=== PATIENT | female | born 1970 | race Caucasian/White ===

== ENCOUNTER 2025-05-22 14:44 | Emergency (ER) | payer OTHER, SELFPAY ==
--- OUTSIDE RECORDS SUMMARY | 2025-04-07 10:15 | XMS_ITS | Encounter Summary ---
Author Organization [facility] Address [address] [place] [address] Care Team Providers Care Power House Engineer Name Role Phone Clay Hoyt MD Primary Care Provider [phone] Xavier Saldivar MD Unavailable Xavier Saldivar MD Unavailable Erica Nieto RD Unavailable [phone] Dariusz Adan MD Unavailable [phone] EloHu ricks MD Unavailable [phone] Comfort Cook PhD Unavailable [phone] Lukas Mosher MD Unavailable [phone] Xavier Marte MD Unavailable [phone] Hu Gasca MD Unavailable [phone] Larry Rosas PhD Unavailable [phone] Krystal Rico [facility] Unavailable [phone] Krystal Rico [facility] Unavailable [phone] Reason for Visit * ReasonCommentsPain Management Encounter Details DateTypeDepartmentCare Team (Latest Contact Info)Lqqnxitsfxu00/11/2025 10:15 AM CSTOffice Visit [facility] [address] [place], [place] [id number] Dariusz Adan MD [id number] [place] [address] [address] [place] [id number] Chronic pain syndrome (Primary Dx); Fibromyalgia; OSWALDO (generalized anxiety disorder); Neuropathic pain; Encounter for long-term (current) use of high-risk medication Social History Tobacco UseTypesPacks/DayYears UsedDateSmoking Tobacco: Every DayCigarettes0.5 48.6Started: 10/26/2006PipeStarted: 3Passive Smoke Exposure: Current Smokeless Tobacco: Never Tobacco Cessation:Ready to Q uit: Not Asked; Counseling Given: Not Answered Alcohol UseStandard Drinks/WeekCommentsNot Currently0 (1 standard drink = 0.6 oz pure alcohol)RARELYPHQ-2AnswerDate RecordedPHQ-2 Zduzi266/11/2025Adolescent EducationAnswerDate RecordedGetting School Help NeededNot on file02/17/2023 CommentsNoSex and Gender InformationValueDate RecordedSex Assigned at ArkooQjshvh11/02/2021 8:35 AM CDTLegal PuqDbfpog88/26/2021 11:46 AM CDTGender WwnjjlvvBmbxba64/02/2021 8:35 AM CDTSexual WpqedboxcomUsgfrxha61/02/2021 8:35 AM CDTdocumented as of this encounter Last Filed Vital Signs Vital SignReadingTime TakenCommentsBlood Eoscosof43/5404/07/2025 10:01 AM COMBINE OPERATOR Oaard062104/07/2025 10:01 AM CSTTemperature--Respiratory Rate--Oxygen Saturation 95%04/07/2025 10:01 AM CSTInhaled Oxygen Concentration--Weight--Height--Body Mass Index--documented in this encounter Patient Instructions * Patient Instructions* Dariusz Adan MD - 04/07/2025 10:15 AM COMBINE OPERATOR You can take your Subutex 2mg all at night vs cutting it in half and taking it twice a day. I did not make other medication changes. Follow up 06/30/2025 @ 1015. If your healthcare changes I can give you 3-6 months worth of subutex until you can find someone through [facility] system to prescribe this for you. Talk to your drier feeder about possible treatment for your menopause symptoms. They may need torefer you to OBGYN or you PCP may be willing to prescribe this as well. Dariusz Adan MD INE OPERATOR documented in this encounter Progress Notes * Dariusz Adan MD - 04/07/2025 10:15 AM CST Images from the original note were not included. [facility] Date of visit: 04/07/2025 Chief complaint: Chief Complaint Patient presents with Pain Management Interval history: Klaudia Hall is a 54 year old female last seen by me for INITIAL CONSULT on 07/27/2021 and for FOLLOW UP on 12/30/2024 IN PERSON. Since her last visit, Klaudia Hall reports: - Doing okay. She is really frustrated and anxious about her medical problems she has had recently. -She continues to use Subutex 2 mg tablets. States she cannot take buprenorphine in the morning because it knocks me out . She wonders if she can take the whole 2 mg tablet at night instead. She was previously using Belbuca 450 mcg films twice a day. She is no longer having any side effects from the buprenorphine other than morning sedation. - She brought in a letter and has Sealed for insurance. She is concerned that therapy will not reach a negotiation with them and she will need to find a new pain provider. - She had a stent placed in her carotid artery 03/18/2025. Routine US showed obstruction 80% on theright and 50% on the left side. - She is 186# currently and used to be 140#. She does not know how she gained this much weight in 4months. - She talked to her drier feeder about her recent weight gain and they increased her thyroid medications, Synthroid. She also has a diagnosis of Hashimotos thyroiditis. - I've been so so tired. I've been really depressed about with weight gain. - She is not sleeping in the bed anymore because she cannot lay in the bed. Her arms get painful and her legs and back get painful its a nightmare. - Her has prostate cancer and is had a resection done 01/19/2025. He has a good prognosis. He has a follow-up this week to get labs done. - Recent diagnosis of gastroparesis with abdominal pain and N/V. EGD was done and they dilated her pyloric sphincter. - She is back on Reglan 10mg at night for her gastroparesis. She had not taken it for about a year prior to restarting it. She is no longer using Zofran because it was contributing to her constipation. - Seeing her neurologist, Dr. Saldivar, on 04/09/2025. She has a referral for left carpal tunnel release placed. She already had the right one done. A Thomas MRI was ordered for her headaches. She continues to have what sound like tension headaches. She was previously on Topamax but that caused brain fog. She did not note any change in headache after discontinuation of this medication in the past. - Referral to [place] urology for urinary retention. My bladder is lazy. She knows how to catheterize herself at home if needed. - She is not taking her flexeril on a daily basis anymore. She is only using it as needed. - She has reduced her trazodone from 300mg to 150mg at night. - Her Gabapentin is still at 300mg BID and at noon PRN - She had a mild heart attack and got a stent. She spent a night in the hospital at [place]. - Sunni Contreras is her psychiatrist ([facility]) and is prescribing her Xanax. She does not think there is any correlation with the benzodiazepine and her memory issues. She continues to take Xanax 4-5 times a day. - She is seeing endocrinology. She was diagnosed with DM I in 1993. She has been on insulin for many years. - The medical cannabis is a lifesaver. She is using the vape and the gummy. She only uses it a little during the day. It helps with relaxation and sleep. It calms her down and helps with her pain. - Switching to flexeril (from robaxin) has been helpful for her pain. - She continues to struggle with motivation for ADLs, grocery shopping, going out for anything. - She was seeing Xavier in pain PT, where she learned some helpful breathing and relaxation exercises. - Her is very supportive of her - She wonders if menopause may be causing some of her symptoms. She is interested in hormone replacement. She saw a news program this morning showing that the initial study showing an increased risk of breast cancer was probably flawed. LEAD BUSINESS ANALYST: Owen Lawson - Diabetes which was diagnosed in 1993. Hashimotos Hypothyroidism PSYCHIATRIST: Sunni [facility] She has been on chronic benzodiazepines since age 23. She takes 4-5mg of xanax daily. NEUROLOGIST: Xavier Saldivar - for peripheral neuropathic pain. SALES ACCOUNT SPECIALIST - Dr. Marina Gasca - moderate persistent asthma CARDIOLOGY: Franchesca Sanchez Patient reported symptoms: Patient Supplied Answers To the Pain Questionnaire 07/16/2022 1:10 PM Pain - Patient Entered Questionnaire/Answers What number best describes your pain right now: 0 = No pain to 10 = Worst pain imaginable 8 How would you describe the pain burning sharp numbness dull, aching throbbing Which of the following worsen your pain lying down standing walking exercise Which of the following improve or reduce your pain sitting medication relaxation What number best describes your average pain for the past week: 0 = No pain to 10 = Worst pain imaginable 8 What number best describes your LOWEST pain in past 24 hours: 0 = No pain to 10 = Worst pain imaginable 6 What number best describes your WORST pain in past 24 hours: 0 = No pain to 10 = Worst pain imaginable 8 When is your pain worst AM Constant What non-medicine treatments have you already had for your pain pain clinic physical therapy spine injections (shots) No images are attached to the encounter. [place] FRONT OFFICE JAVA DEVELOPER REVIEWED TODAY: UDS and CONTRACT DONE on 12/30/2024. MEDICATIONS FOR PAIN: Subutex 2 mg tablets - 1/2 tablet BID (she has been skipping the morning dose because of sedation. Gabapentin 300mg TID PRN Flexeril 5mg BID PRN Trazodone 150mg at night Effexor XR 75mg am and 150mg at night Xanax 1mg QID plus another PRN Previous medication trials: Topamax - severe acid build up and nausea Lyrica - [place] Robaxin - NH anymore - was helpful for awhile INJECTIONS/SURGERY: Right subacromial shoulder injection 07/13/2023 - pain and reduced ROM resolved completely Lumbar L4-5 ILESI 05/13/2021 C7-T1 Cervical TRAN 04/28/2022 S/P RIGHT carpal tunnel release 12/02/[address] Wofle. S/P right cardiac stent placement 03/18/2025 IMAGING: MRI LUMBAR SPINE 06/12/2018 CERVICAL MRI 02/10/2022: FINDINGS: Straightening of the cervical lordosis without subluxation. Normal cervical vertebral body heights. Normal cervical spinal cord. Benign marrow, no edema. C2-C3: Preserved interspace. No herniation. Unremarkable facets. No stenosis. C3-C4: Preserved interspace. No herniation. Unremarkable facets. No stenosis. C4-C5: Preserved interspace. Tiny central protrusion causes minor central canal narrowing. Unremarkable facets. No foraminal narrowing. C5-C6: Preserved interspace. No herniation. Unremarkable facets. No stenosis. C6-C7: Preserved interspace. Tiny central protrusion. Unremarkable facets. No stenosis. C7-T1: Preserved interspace. No herniation. Unremarkable facets. No stenosis. IMPRESSION: 1. Tiny central protrusion at C4-C5 causes minor central canal narrowing. 2. Tiny central herniation at C6-C7 without stenosis. EM05/24/2022 right upper extremity EMG Interpretation: This is an abnormal study, demonstrating electrophysiologic evidence of the followin. Reduced compound muscle action potential amplitudes (CMAPs), of uncertain significance. 2. No increment in CMAPs after contraction. 3. Prolonged median distal motor latency, consistent with the patient's past history of median neuropathy at the wrist. LABS: TSH: 3.78 HgbA1c - 8.0 Medications: Current Outpatient Medications Medication Sig Dispense Refill ALPRAZolam (XANAX) 1 MG tablet Take 1 mg by mouth 5 times daily. Taking 5 times a day aspirin (ASPIRIN ADULT LOW DOSE) 81 MG EC tablet Take 81 mg by mouth daily. buprenorphine (SUBUTEX) 2 MG SUBL sublingual tablet Place 0.5 tablets (1 mg) under the tongue 2 times daily. 30 tablet 2 clopidogrel (PLAVIX) 75 MG tablet Take 75 mg by mouth daily. Continuous Blood Gluc Sensor (optionsXpress G7 SENSOR) MISC cyclobenzaprine (FLEXERIL) 5 MG tablet Take 1 tablet (5 mg) by mouth 2 times daily as needed for muscle spasms. 60 tablet 1 Dgastpptser-Iebmghrkc-Itcconfgft (TRELEGY ELLIPTA) 200-62.5-25 MCG/ACT oral inhaler Inhale 1 puff into the lungs daily. 180 each 3 gabapentin (NEURONTIN) 300 MG capsule Take 1 capsule (300 mg) by mouth 3 times daily as needed for neuropathic pain. 90 capsule 2 insulin aspart (NOVOLOG FLEXPEN) 100 UNIT/ML pen Inject subcutaneously. Inject 1 unit(s) to 5 unit(s) subcutaneously before meals (sliding scale) insulin degludec (TRESIBA) 100 UNIT/ML pen Inject 18-20 Units subcutaneously every morning. levalbuterol (XOPENEX HFA) 45 MCG/ACT inhaler Inhale 2 puffs into the lungs every 6 hours as neededfor shortness of breath or wheezing. 45 g 3 levothyroxine (SYNTHROID/LEVOTHROID) 88 MCG tablet Take 1 tablet by mouth daily. metoprolol succinate ER (TOPROL XL) 25 MG 24 hr tablet Take 12.5 mg by mouth daily. nicotine (NICODERM CQ) 21 MG/24HR 24 hr patch APPLY 1 PATCH ON DRY, CLEAN, HAIRLESS SKIN ONCE DAILY. nitroGLYcerin (NITROSTAT) 0.[address] 1 Tablet (0.4 mg) under the tongue every 5minutes if needed for Chest pain 1st choice (Hold if SBP less than 90 mmHg). Up to 3 tablets in 15 minutes. ondansetron (ZOFRAN) 4 MG tablet Take 4 mg by mouth daily as needed for nausea. pantoprazole (PROTONIX) 40 MG EC tablet Take 40 mg by mouth 2 times daily. rosuvastatin (CRESTOR) 20 MG tablet Take 1 tablet by mouth at bedtime. traZODone (DESYREL) 150 MG tablet Take 150 mg by mouth at bedtime. venlafaxine (EFFEXOR XR) 150 MG 24 hr capsule Take 1 capsule (150 mg) by mouth at bedtime. 30 capsule 2 venlafaxine (EFFEXOR XR) 75 MG 24 hr capsule Take 1 capsule (75 mg) by mouth in the morning Physical Exam: Blood pressure 98/54, pulse 92, SpO2 95%. GENERAL: Healthy, alert and no distress EYES: Eyes grossly normal to inspection. No discharge or erythema, or obvious scleral/conjunctival abnormalities. RESP: No audible wheeze, cough, or visible cyanosis. No visible retractions or increased work of breathing. SKIN: Visible skin clear. No significant rash, abnormal pigmentation or lesions. NEURO: Cranial nerves grossly intact. Mentation and speech appropriate for age. PSYCH: Mentation appears normal, affect normal/bright, judgement and insight intact, normal speech and appearance well-groomed. ASSESSMENT/PLAN: Klaudia Hall is a 54 year old female has a past medical history of recent myocardial infarction and stent placement in the circumflex artery, recent right cardiac stent placement, DMI, GERD, hypothyroidism, biliary dyskinesia, HTN and carpal tunnel syndrome and mental health history significant for severe anxiety treated with daily benzodiazepines and depression and is being seen at the pain clinic for chronic widespread pain. 1. Chronic pain syndrome (Primary) HEADACHES - TENSION AND MIGRAINE - Headaches are stable and did not change in frequency or intensity after discontinuation of topamax. She is following with neurology for these. CHRONIC NECK PAIN - myofascial etiology. Recent Cervical MRI was normal. I do not recommend injections at this time. I did give her some stretching exercises to do at her last follow-up visit. OSTEOARTHRITIS RIGHT SHOULDER - S/P glenohumeral injection (right) which was really helpful. Her shoulder range of motion has improved dramatically and pain is no longer concerning for her at this time. BILATERAL LEG PAIN -likely a combination of peripheral neuropathy pain and fibromyalgia. This is improved with gabapentin which she is taking 300 mg 3 times a day. CHRONIC LOW BACK PAIN - with radiation down her bilateral buttock and posterior thighs. It has beengoing on for a couple months. This is a new acute pain. The patient has a complex medical history. Her pain is widespread and chronic. Her pain has been the same for about 20 years now. She has pain starting in her head and going through her entire body all the way to her feet. Specific pain complaints include chronic neck and arm pain, low back pain, trigger finger pain wrist pain carpal tunnel painmid back pain burning thigh pain radiating leg pain and what sounds like peripheral neuropathy pain in her bilateral feet. She also complains of crippling anxiety, insomnia and fatigue throughout the day. Her symptoms seem to rotate around her body at different times. She continues to search for an all-inclusive diagnosis to explain all of her symptoms. I explained that she has seen many different specialties and many different physicians in the last 20 years and her primary diagnosis is fibromyalgia. Buprenorphine has been very effective in pain management. We recently switched from Belbuca 450 mcgtwice daily to Subutex 2 mg tablet daily. She is taking this as 1mg twice a day. She would like to take the whole 2mg tablet at night and this was discussed. I am fine with her taking it this way. She had Youku and may need to stop seeing me. I reassured her I would supply her with 3-6 months of medication to give her time to find a new doctor within the [facility] system. Recommend she discuss hormone replacement therapy for menopause symptoms with either her drier feeder or her primary care provider who could place a EXECUTIVE ASSISTANT referral or possibly prescribing herself. She is working with a [facility] pharmacist. We have done a good job reducing a lot of her medications over the last couple years. CERTIFIED FOR MEDICAL MARIJUANA DONE 07/03/2024 - buprenorphine (SUBUTEX) 2 MG SUBL sublingual tablet; Place 0.5 tablets (1 mg) under the tongue 2 times daily. Dispense: 30 tablet; Refill: 2 2. Fibromyalgia Discussed again the importance of establishing a daily HEP. Encouraged a daily walking regiment. - cyclobenzaprine (FLEXERIL) 5 MG tablet; Take 1 tablet (5 mg) by mouth 2 times daily as needed formuscle spasms. Dispense: 60 tablet; Refill: 1 3. OSWALDO (generalized anxiety disorder) She is benzodiazepine dependent. She takes between 4 and 5 mg a day of Xanax and has been doing this for many years. She is seeing a psychiatrist regularly. I do not see any evidence of abuse or misuse of her medications in chart review. There is a mental health overlay to her chronic pain. 4. Neuropathic pain I can take over a prescribing role for her Gabapentin 300mg TID PRN Dr. Saldivar in Neurology was prescribing this. If she can no longer see me as a provider he will need to take over prescribing role again. - gabapentin (NEURONTIN) 300 MG capsule; Take 1 capsule (300 mg) by mouth 3 times daily as needed for neuropathic pain. Dispense: 90 capsule; Refill: 2 5. Encounter for long-term (current) use of high-risk medication High Risk Drug Monitoring? YES Drug being monitored: Buprenorphine Reason for drug: Opioid Use Disorder What is being monitored?: Dosage, Cravings, Trigger, side effects, and abstinence. She has Sealed insurance and has no way to change as this is what is offered through [facility]. Most of her her providers are currently through the [facility] system. However, she may need to find a new provider for pain management and 1 that is willing to prescribed her current medication regiment of Subutex 2 mg tablets. I let her know I would give her a 3 to 6-month medication bridge to give her time to find a new provider if necessary. MEDICATIONS: Orders Placed This Encounter Medications buprenorphine (SUBUTEX) 2 MG SUBL sublingual tablet Sig: Place 1 tablet (2 mg) under the tongue daily. Dispense: 30 tablet Refill: 2 gabapentin (NEURONTIN) 300 MG capsule Sig: Take 1 capsule (300 mg) by mouth 3 times daily as needed for neuropathic pain. Dispense: 90 capsule Refill: 2 cyclobenzaprine (FLEXERIL) 5 MG tablet Sig: Take 1 tablet (5 mg) by mouth 2 times daily as needed for muscle spasms. Dispense: 60 tablet Refill: 1 FOLLOW UP: EVERY 3 MONTHS - 06/30/2025 @ 1015AM - she is complex and requires longer visit times. BILLING TIME DOCUMENTATION: The total TIME spent on this patient on the date of the encounter/appointment was 53 minutes. TOTAL TIME includes: Time spent preparing to see the patient (reviewing records and tests) - 11 min Time spent face to face (or video/phone) with the patient for follow up - 34 min Time spent ordering tests, medications, procedures and referrals - 0 min Time spent Referring and communicating with other healthcare professionals - 0 min Time spent documenting clinical information in Epic - 8 min DARIUSZ ADAN MD Pain Management INE OPERATOR documented in this encounter Plan of Treatment DateTypeDepartmentCare Team (Latest Contact Info)Uflwmhylypa58/31/2025 2:00 PM CSTAncillary Procedure [facility] Xray [address] 1[address] [place] [phone] Yarelis Leavitt PA-C [place] [facility] [address] [facility] JEANMARIE CAGLE [id number] 07/21/2025 10:15 AM CSTOffice Visit [facility] [place] [id number] [place] [address] [address] [place] [address] [place] [address] [address] JE[address]MAR[address] TERRY [address] 09/24/2025 3:30 PM CDTOffice Visit [facility] [address] [place] [phone] Xavier Saldivar MD [address] [place] [address] documented as of this encounter Visit Diagnoses Diagnosis Chronic pain syndrome- Primary Fibromyalgia Mylagia and myositis, unspecified OSWALDO (generalized anxiety disorder) Generalized anxiety disorder Neuropathic pain Neuralgia, neuritis, and radiculitis, unspecified Encounter for long-term (current) use of high-risk medication Encounter for long-term (current) use of other medications documented in this encounter Additional Health Concerns AssessmentNoted TimePHQ-9 Depression Total Score: 11:21 AM COMBINE OPERATOR documented as of this encounter Care Teams Team MemberRelationshipSpecialtyStart DateEnd Date Clay Hoyt MD PCP - GeneralSports Medicine10/22/20 Xavier Saldivar MD [address] [place] [address] Neurology10/22/20 Xavier Saldivar MD [address] [place] [address] Assigned Neuroscience Provider01/02/[address] [place] [address] Registered DietitianDietitian, Axghscaxrq45/23/21 [place] [address] [place] [address] Assigned Pain Medication Provider12/02/22 Hu Gasca MD [address] [facility] [address] [place] [address] MDCritical Care08/02/23 Comfort Cook, PhD LP [address] [place] [address] PsychologistNeuropsychology08/17/23 Lukas Mosher MD [address] [place] [address] [id number] Neurology08/17/23 Xavier Marte MD [address] [place] [address] Assigned Heart and Vascular Provider12/18/23 Hu Gasca MD [address] [place] [address] Assigned Pulmonology Kgsmiwmn32/23/24 Larry Rosas, PhD [address] [place] [address] [id number] Assigned Behavioral Health Iyabfmfe27/23/24 Krystal Rico [facility] [address] [place], [place] [address] PharmacistPharmacist09/25/24 Krystal Rico [facility] [address] [place], [place] [id number] Assigned DONELL Pharmacist10/17/24documented as of this encounter
--- OUTSIDE RECORDS SUMMARY | 2025-04-09 14:30 | XMS_ITS | Encounter Summary ---
Author Organization [facility] Address [address] [place] [address] Care Team Providers Care Wire Harness Assembler Name Role Phone Clay Hoyt MD Primary Care Provider [phone] Xavier Saldivar MD Unavailable Xavier Saldivar MD Unavailable Erica Nieto RD Unavailable [phone] Siobhan Rodrigez MD Unavailable [phone] EloHu ricks MD Unavailable [phone] Comfort Cook PhD Unavailable [phone] Lukas Mosher MD Unavailable [phone] Xavier Marte MD Unavailable [phone] Hu Gasca MD Unavailable [phone] Larry Rosas PhD Unavailable [phone] [facility] Unavailable [phone] [facility] Unavailable +[phone] Reason for Visit * ReasonCommentsRECHECK Encounter Details DateTypeDepartmentCare Team (Latest Contact Info)Pefnvhwxzcw90/13/2025 2:30 PM CSTOffice Visit [facility] [address] 3rd [place] [phone] Xavier Saldivar MD [address] [place] [address] [id number] [place], [place] [id number] Autonomic dysfunction (Primary Dx); Polyneuropathy Social History Tobacco UseTypesPacks/DayYears UsedDateSmoking Tobacco: Every DayCigarettes0.5 48.6Started: 10/26/2006PipeStarted: 3Passive Smoke Exposure: Current Smokeless Tobacco: Never Tobacco Cessation:Ready to Q uit: Yes Alcohol UseStandard Drinks/WeekCommentsNot Currently0 (1 standard drink = 0.6 oz pure alcohol)RARELYPHQ-2AnswerDate RecordedPHQ-2 Fctvp77806/07/2024dolescent EducationAnswerDate RecordedGetting School Help NeededNot on file02/17/2023 CommentsNoSex and Gender InformationValueDate RecordedSex Assigned at GiekbDkhhzx73/02/2021 8:35 AM CDTLegal NflLmmqsn25/26/2021 11:46 AM CDTGender DnegbkmuBgksym53/02/2021 8:35 AM CDTSexual CqjbleliapgWosmmsjo29/02/2021 8:35 AM CDTdocumented as of this encounter Last Filed Vital Signs Vital SignReadingTime TakenCommentsBlood Nlrrjopx123/7304/09/2025 2:35 PM BACKEND DEVELOPER Nkkle207904/09/2025 2:33 PM CSTTemperature--Respiratory Tbjs571206/09/2024 2:33 PM CSTOxygen Ddhkjjtpjh31%04/09/2025 2:33 PM CSTInhaled Oxygen Concentration-- Cwbcmp67.4 kg (188 lb 3.2 oz)04/09/2025 2:33 PM NGUCrvqod914.2 cm (5' 7) 04/09/2025 2:33 PM CSTBody Mass Index29.4804/09/2025 2:33 PM CSTdocumented in this encounter Patient Instructions * Patient Instructions* Xavier Saldivar MD - 04/09/2025 2:30 PM BACKEND DEVELOPER I messaged our genetic counselor about the testing, which is generally covered. I will let you know what I learn. Let me know if you would like a physical therapy referral. Return in 6 months. Please call C[facility] @ [phone] for questions or concerns during regular business hours. For a more efficient way to communicate, use ResponseTap (formerly AdInsight)t and address the message to your physician. Remember, MyChart is only read during business hours. Do not leave urgent messages on voicemail or MyChart. If situation is urgent, contact the Neurology Clinic @ [phone] and ask to speak to a Triage Nurse or Call 911 or visit an Emergency Department. Please call your pharmacy if you need a medication refill. They will send us an electronic message. END DEVELOPER documented in this encounter Progress Notes * Xavier Saldivar MD - 04/09/2025 2:30 PM CST Return visit for 54 year old woman with neuropathy. Prior visit and interval findings reviewed. I personally reviewed and interpreted her brain MRI. She has not had orthopedic follow up for carpal tunnel syndrome and has not had genetic testing, as referenced in prior note. This is because of extensive urgent medical management in the interim, including GI, cardiac, and vascular surgery interventions (see medical record for details), as well as distraction due to her 's medical condition. Mental state: Alert, appropriate, speech, language, and thought content normal. Cranial nerves II-XII: normal. Sensory examination: Right Left Light touch DC DC Vibration (timed) TT5 TT5 Vibration (Rydell-Seiffer) Temp Pin Pos Legend: MM = medial malleolus, TT = tibial tuberosity, K = patella, MCP = MCP joint MF = mid-foot, DC = distal calf, MC = mid calf, PC = proximal calf Motor examination: Right Left Shoulder abduction 5 5 Elbow extension 5 5 Elbow flexion 5 5 Wrist extension 5 5 Finger extension 5 5 FDI 5 5 APB 5 5 Hip flexion 5 5 Knee flexion 5 5 Knee extension 5 5 Dorsiflexion 5 5 Plantar flexion 5 5 A=atrophy Tone normal Reflexes: Right Left Biceps 2 2 BRD 2 2 Triceps 2 2 Patellar 2 2 Achilles 2 2 Plantar Flexor Flexor Clonus Absent Absent Coordination: Finger-nose normal. Heel-fairbanks normal. RRMs normal. Gait: Normal. Impression: Stable examination. Some symptomatic improvement in dizziness but not in pain. Inherited neuropathy panel has not been completed. Imbalance persists. Recommendations: I messaged our genetic counselor about the testing, which is generally covered. I will let you know what I learn. Let me know if you would like a physical therapy referral. Return in 6 months. Xavier Saldivar M.D. 25 minutes spent on the date of the encounter on chart review, history and examination, documentation and further activities as noted above. END DEVELOPER documented in this encounter Nursing Notes * Lesa Mcneil - 04/09/2025 2:30 PM CST Chief Complaint Patient presents with RECHECK BP (!) 148/73 (BP Location: Left arm, Patient Position: Sitting, Cuff Size: Adult Large) Pulse 85 Resp 16 Ht 1.702 m (5' 7) Wt 85.4 kg (188 lb 3.2 oz) SpO2 97% BMI 29.48 kg/m?? LESA MCNEIL END DEVELOPER documented in this encounter Plan of Treatment DateTypeDepartmentCare Team (Latest Contact Info)Rxupljmotcm16/31/2025 2:00 PM CSTAncillary Procedure [facility] Xray [address] [place] [address] Yarelis Leavitt, PA-C [place] [facility] [address] [place] [address] 07/21/2025 10:15 AM CSTOffice Visit [facility] [place] [address] [place] [address] Drive [address] [place], [place] [address] [place] [address] [place] [address] 09/24/2025 3:30 PM CDTOffice Visit [facility] [address] [place] [address] Xaiver Saldivar MD [address] [place] [id number] [place] [address] documented as of this encounter Visit Diagnoses Diagnosis Autonomic dysfunction- Primary Unspecified disorder of autonomic nervous system Polyneuropathy Unspecified hereditary and idiopathic peripheral neuropathy documented in this encounter Additional Health Concerns AssessmentNoted TimePHQ-9 Depression Total Score: 11:21 AM BACKEND DEVELOPER documented as of this encounter Care Teams Team MemberRelationshipSpecialtyStart DateEnd Date Clay Hoyt MD PCP - GeneralSports Medicine10/22/20 Xavier Saldivar MD [address] [place] [address] Neurology10/22/20 Xavier Saldivar MD [address] [place] [address] Assigned Neuroscience Provider01/02/[address] [place] [address] Registered DietitianDietitian, Zcfmknqhhp88/23/21 [place] [address] [place] [address] Assigned Pain Medication Provider12/02/22 Hu Gasca MD [address] [place] [address] 644475 MDCritical Care08/02/23 Comfort Cook, PhD LP [address] [place] [address] 553965 PsychologistNeuropsychology08/17/23 Lukas Mosher MD [address] [facility] [address] [place] [address] MDNeurology08/17/23 Xavier Marte MD 909 [place] [address] Assigned Heart and Vascular Provider12/18/23 Hu Gasca MD [address] [facility] [address] [place] [address] Assigned Pulmonology Dlyzxkdj76/23/24 Larry Rosas, PhD LP [address] [place] [address] Assigned Behavioral Health Uwzjghar51/23/24 Krystal Rico, [facility] [address] [place], [place] [address] PharmacistPharmacist09/25/24 Krystal Rico, [facility] [address] [place] [address] Assigned MTM Pharmacist10/17/24documented as of this encounter
--- OUTSIDE RECORDS SUMMARY | 2025-04-17 11:30 | XMS_ITS | Encounter Summary ---
Author Organization [facility] Address [address] [place] [address] Care Team Providers Care Network Communications Engineer Name Role Phone Clay Hoyt MD Primary Care Provider [phone] Xavier Saldivar MD Unavailable Xavier Saldivar MD Unavailable Erica Nieto RD Unavailable [phone] Siobhan Rodrigez MD Unavailable EloHu ricks MD Unavailable [phone] Comfort Cook PhD LP Unavailable [phone] Lukas Mosher MD Unavailable [phone] Xavier Marte MD Unavailable [phone] Hu Gasca MD Unavailable [phone] Larry Rosas PhD Unavailable [phone] Krystal Rico [facility] Unavailable [phone] Krystal Rico [facility] Unavailable [phone] Reason for Visit * Genomics (Routine) - ClosedSpecialtyDiagnoses / ProceduresReferred By Contact Referred To Contact 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 Hold For Preauthorization: Xavier Saldivar MD [address] [facility] [id number] [place] [address] Phone: tel: fax: Referral IDStatusReasonStart DateExpiration DateVisits RequestedVisits [id number]/12/20259/ Encounter Details DateTypeDepartmentCare Team (Latest Contact Info)Qvcvpajrojo88/21/2025 11:30 AM CSTLab [facility] [address] [place] [address] Idiopathic progressive polyneuropathy Social History Tobacco UseTypesPacks/DayYears UsedDateSmoking Tobacco: Every DayCigarettes0.5 48.6Started: 10/26/2006PipeStarted: 3Passive Smoke Exposure: Current Smokeless Tobacco: NeverAlcohol UseStandard Drinks/WeekCommentsNot Currently0 (1 standard drink = 0.6 oz pure alcohol)RARELYPHQ-2AnswerDate RecordedPHQ-2 Score4 5Adolescent EducationAnswerDate RecordedGetting School Help NeededNot on file3CommentsNoSex and Gender InformationValueDate Recorded Sex Assigned at IfnbjUlwlsc54/02/2021 8:35 AM CDTLegal CiwMtwayg26/26/2021 11:46 AM CDTGender XmxzmovzYskxkw56/02/2021 8:35 AM CDTSexual OrientationStraight 12/27/2020 8:35 AM CDTdocumented as of this encounter Plan of Treatment DateTypeDepartmentCare Team (Latest Contact Info)Rrrsqwjnplo49/31/2025 2:00 PM CSTAncillary Procedure [facility] Xray [address] [address] Yarelis Leavitt PA-C [place] [facility] PA [address] [facility] JEANMARIE CAGLE [id number] 07/21/2025 10:15 AM CSTOffice Visit [facility] Pain [facility] [address] [place], [place] [address] [place] [address] [address] [place] TERRY [id number] 09/24/2025 3:30 PM CDTOffice Visit [facility] [address] 3rd [place] [address] Xavier Saldivar MD [address] [place] [address] [id number] [place] [address] documented as of this encounter Procedures Procedure NamePriorityDate/TimeAssociated DiagnosisCommentsHEREDITARY GENOMICS HOLD FOR KCKHOLCEYTBOQZPOMkqlhcu74/21/2025 11:30 AM LAUNDRY TECHNICIAN Idiopathic progressive polyneuropathy documented in this encounter Results * Hereditary Genomics Hold For Preauthorization: (04/17/2025 11:30 AM LAUNDRY TECHNICIAN) ComponentValueRef RangeTest MethodAnalysis TimePerformed AtPathologist SignatureInterpretationSample processed in lab for DNA for genetic testing. Insurance preauthorization will be initiated. Contact lab with questions, . (Electronically signed by: Lab, Background User April 20, 2025 8:06 AM) 04/20/2025 8:06 AM CST[facility] (LDL)Specimen (Source)Anatomical Location / LateralityCollection Method / VolumeCollection TimeReceived TimeBlood BLOOD SPECIMEN / UnknownVenipuncture / Oefylwu2004/17/2025 11:30 AM CST04/17/2025 11:30 AM LAUNDRY TECHNICIAN Narrative Authorizing ProviderResult TypeResult StatusDavid Janna [facility] - GENOMICSFinal ResultPerforming OrganizationAddressCity/State/ZIP CodePhone Number [facility] [address] [place] [address] Building, Room 3-[address] documented in this encounter Visit Diagnoses Diagnosis Idiopathic progressive polyneuropathy documented in this encounter Additional Health Concerns AssessmentNoted TimePHQ-9 Depression Total Score: 1111 11:21 AM LAUNDRY TECHNICIAN documented as of this encounter Care Teams Team MemberRelationshipSpecialtyStart DateEnd Date Clay Hoyt MD PCP - [facility]10/22/20 Xavier Saldivar MD [id number] [place], [place] [id number] Neurology10/22/20 Xavier Saldivar MD [address] [place] [address] 495885 Assigned Neuroscience Provider01/02/[address] [place] [address] Registered DietitianDietitian, Cpwlbomnpm49/23/21 [place] [address] [place], [place] [address] Assigned Pain Medication Provider12/02/22 Hu Gasca MD [address] [place] [address] 276 [place] [address] MDCritical Care08/02/23 Comfort Cook, PhD LP [address] [place] [address] 019875 PsychologistNeuropsychology08/17/23 Lukas Mosher MD 420 [facility] 486 [place], [place] 6[address]645 Neurology08/17/23 Xavier Marte MD [address] [place] [address] 180115 Assigned Heart and Vascular Provider12/18/23 Hu Gasca MD 420 [facility] [address] [place], [place] 9[address] Assigned Pulmonology Qkvldzlq56/23/24 Larry Rosas, PhD LP [address] [place], [place] 6[address]265 Assigned Behavioral Health Gcugoipk23/23/24 Krystal Rico [facility] [address] [place], [place] [address] PharmacistPharmacist09/25/24 Krystal Rico [facility] [address] [place] [address] Assigned MTM Pharmacist10/17/24documented as of this encounter
--- OUTSIDE RECORDS SUMMARY | 2025-04-27 16:00 | XMS_ITS | Encounter Summary ---
Author Organization [facility] Address [address] [place] [address] Care Team Providers Care Billing Services Manager Name Role Phone Clay Hoyt MD Primary Care Provider [phone] Xavier Saldivar MD Unavailable Xavier Saldivar MD Unavailable Erica Nieto RD Unavailable [phone] Siobhan Rodrigez MD Unavailable [phone] EloHu ricks MD Unavailable [phone] Comfort Cook PhD Unavailable [phone] Lukas Mosher MD Unavailable [phone] Xavier Marte MD Unavailable [phone] EloHu ricks MD Unavailable [phone] Larry Rosas PhD Unavailable [phone] Krystal Rico [facility] Unavailable [phone] Krystal Rico [facility] Unavailable [phone] Encounter Details DateTypeDepartmentCare Team (Latest Contact Info)Rorgcmmgzue27/01/2025 4:00 PM [facility] [address] [place] [address] Idiopathic progressive polyneuropathy (Primary Dx) Social History Tobacco UseTypesPacks/DayYears UsedDateSmoking Tobacco: Every DayCigarettes0.5 48.6Started: 10/26/2006PipeStarted: 3Passive Smoke Exposure: Current Smokeless Tobacco: NeverAlcohol UseStandard Drinks/WeekCommentsNot Currently0 (1 standard drink = 0.6 oz pure alcohol)RARELYPHQ-2AnswerDate RecordedPHQ-2 Score4 5Adolescent EducationAnswerDate RecordedGetting School Help NeededNot on file3CommentsNoSex and Gender InformationValueDate Recorded Sex Assigned at NwfqfScobje43/02/2021 8:35 AM CDTLegal OdtGaitdf76/26/2021 11:46 AM CDTGender TnkycetaWcwnzi69/02/2021 8:35 AM CDTSexual OrientationStraight 12/27/2020 8:35 AM CDTdocumented as of this encounter Plan of Treatment DateTypeDepartmentCare Team (Latest Contact Info)Hndqgweugje25/31/2025 2:00 PM CSTAncillary Procedure [facility] Xray [address] [phone] Yarelis Leavitt, PA-C [place] [facility] PA [address] [facility] [address] [place] [id number] 07/21/2025 10:15 AM CSTOffice Visit [facility] Pain Management [address] [place], [place] [address] [place]han Rod[place]igez [place] [address] [place] [address] [place] [address] 09/24/2025 3:30 PM CDTOffice Visit [facility] Neurology Clinic [address] [address] Xavier Saldivar MD [address] [place] [address] [id number] [place] [address] NameTypePriorityAssociated DiagnosesDate/TimeNext Generation SequencingMolecular LabRoutine Idiopathic progressive polyneuropathy 04/27/2025 3:55 PM CSTdocumented as of this encounter Procedures Procedure NamePriorityDate/TimeAssociated DiagnosisCommentsNGS 11 OR MORE GENES Dkklreg4104/27/2025 3:55 PM SUPERVISOR PRODUCTION Idiopathic progressive polyneuropathy documented in this encounter Results * NGS 11 or More Genes (04/27/2025 3:55 PM SUPERVISOR PRODUCTION)Specimen (Source)Anatomical Location / LateralityCollection Method / VolumeCollection TimeReceived Time BloodBLOOD SPECIMEN / UnknownVenipuncture-No Charge / Rsedurp4604/27/2025 3:55 PM CST04/27/2025 3:55 PM SUPERVISOR PRODUCTION Narrative Authorizing ProviderResult TypeResult StatusDavid Cole RON, LAB CHARGE PERFORMABLESFinal ResultPerforming OrganizationAddressCity/State/ZIP CodePhone Number [facility] [address] [facility], Room 3-[address] documented in this encounter Visit Diagnoses Diagnosis Idiopathic progressive polyneuropathy- Primary documented in this encounter Additional Health Concerns AssessmentNoted TimePHQ-9 Depression Total Score: 1111 11:21 AM SUPERVISOR PRODUCTION documented as of this encounter Care Teams Team MemberRelationshipSpecialtyStart DateEnd Date Clay Hoyt MD PCP - GeneralSports Medicine10/22/20 Xavier Saldivar MD [address] [place] [address] Neurology10/22/20 Xavier Saldivar MD [address] [place] [address] Assigned Neuroscience Provider01/02/[address] [place] [address] 801875 Registered DietitianDietitian, Aqicooibwu90/23/21 [place] [address] [place] [address] Assigned Pain Medication Provider12/02/22 Hu Gasca MD [address] 229385 MDCritical Care08/02/23 Comfort Cook, PhD LP 909 [place], [place] 69[address]05 PsychologistNeuropsychology08/17/23 Lukas Mosher MD [address] 174515 MDNeurology08/17/23 Xavier Marte MD 909 [place], [place] 06[address]05 Assigned Heart and Vascular Provider12/18/23 Hu Gasca MD [address] [place] [address] Assigned Pulmonology Ystdpwrs17/23/24 Larry Rosas, PhD LP 6 [place], [place] 382605 Assigned Behavioral Health Idqxarnj35/23/24 Krystal Rico, [facility] [address] [facility] [address] PharmacistPharmacist09/25/24 Krystal Rico [facility] [address] [place] [address] Assigned DONELL Pharmacist10/17/24documented as of this encounter
--- OUTSIDE RECORDS SUMMARY | 2025-04-29 13:00 | XMS_ITS | Encounter Summary ---
Author Organization [facility] Address [address] [place] [address] Care Team Providers Care Beading Installer Name Role Phone Clay Hoyt MD Primary Care Provider [phone] Xavier Saldivar MD Unavailable Xavier Saldivar MD Unavailable Erica Nieto RD Unavailable [phone] Siobhan Rodrigez MD Unavailable [phone] EloHu ricks MD Unavailable [phone] Comfort Cook PhD Unavailable [phone] Lukas Mosher MD Unavailable [phone] Xavier Marte MD Unavailable [phone] EloHu ricks MD Unavailable [phone] Larry Rosas PhD Unavailable [phone] Krystal Rico [facility] Unavailable [phone] Krystal Rico [facility] Unavailable [phone] Reason for Visit * ReasonCommentsRECHECKModerate persistent asthma without complication Encounter Details DateTypeDepartmentCare Team (Latest Contact Info)Oictrseoroq73/03/2025 1:00 PM CSTOffice Visit [facility] [address] [place] [address] Hu Gasca MD [address] [place] [address] Moderate persistent asthma without complication Social History Tobacco UseTypesPacks/DayYears UsedDateSmoking Tobacco: Every DayCigarettes0.5 48.6Started: 10/26/2006PipeStarted: 3Passive Smoke Exposure: Current Smokeless Tobacco: NeverAlcohol UseStandard Drinks/WeekCommentsNot Currently0 (1 standard drink = 0.6 oz pure alcohol)RARELYPHQ-2AnswerDate RecordedPHQ-2 Score1 5Adolescent EducationAnswerDate RecordedGetting School Help NeededNot on file3CommentsNoSex and Gender InformationValueDate Recorded Sex Assigned at MazewEuinlv65/02/2021 8:35 AM CDTLegal YdbZvqndq84/26/2021 11:46 AM CDTGender RwjilwjnFkfcdh03/02/2021 8:35 AM CDTSexual OrientationStraight 12/27/2020 8:35 AM CDTdocumented as of this encounter Last Filed Vital Signs Vital SignReadingTime TakenCommentsBlood Njdjculk063/7604/29/2025 1:08 PM AUDITING MANAGER Ungdo863604/29/2025 1:08 PM CSTTemperature--Respiratory Wsgj971006/30/2024 1:08 PM CSTOxygen Saturation--Inhaled Oxygen Concentration--Xdsnam80.4 kg (186 lb) 04/29/2025 1:08 PM FQHVbwupz846.2 cm (5' 7)04/29/2025 1:08 PM CSTBody Mass Index29.13106/30/2024 1:08 PM CSTdocumented in this encounter Patient Instructions * Patient Instructions* Hu Gasca MD - 04/29/2025 1:00 PM AUDITING MANAGER Continue Trelegy daily, rinse your mouth out after use. Continue as needed Xopenex for worsening shortness of breath or 5-10 minutes prior to activity. TING MANAGER TING MANAGER documented in this encounter Progress Notes * Hu Gasca MD - 04/29/2025 1:00 PM CST Pulmonary Clinic Note Date of Service: 04/29/2025 Chief Complaint Patient presents with RECHECK Moderate persistent asthma without complication A/P: 54F Gogo being seen for follow-up asthma and bronchiectasis. Overall doing well today. No recent exacerbations. She has had multiple other health issues this year and likely deconditioning also contributes to dyspnea. - continue EHC-HSSL-UBYV (Trelegy) daily, rinse mouth out after use - continue prn levalbuterol - OK to substitute medications based on formulary History: 54F Gogo being seen for follow-up asthma and bronchiectasis. Last seen 04/2024. She is prescribed ZUO-XHYA-DYWT (Trelegy) and prn levalbuterol. Breathing is doing well. REIS w/ strenuous activity. No SOB at rest. Slight cough w/ allergies. No nocturnal cough. No chest pain or tightness. Occasional wheezing. Sleeps upright, but not due to orthopnea, due to pain. No PND. Using Trelegy. Occasional levalbuterol use, it is helpful. Smoking: current, 1/4PPD, ~10 pack year history, smokes medical MJ Recent travel: no international travel Bird exposure: no Animal exposure: 1 dog Inhalation exposure: no Occupation: on disability 10 point review of systems negative, aside from that mentioned in HPI. BP 121/76 Pulse 91 Resp 16 Ht 1.702 m (5' 7) Wt 84.4 kg (186 lb) BMI 29.13 kg/m?? Gen: well-appearing HEENT: Mallampati II Card: RRR Pulm: clear bilaterally Abd: soft MSK: no edema, no acute joint abnormality Skin: no obvious rash Psych: normal affect Neuro: alert and oriented Labs: Personally reviewed Immunoglobulins (08/2022) - normal IgE (08/2022) - 195 Abs eos (08/2022) - 400 Imaging/Studies: Personally reviewed CXR (02/2025) - no acute findings PFTs (08/2022) - mild restriction, no significant BD response, moderate reduction in DLCOunc, normalMIP, reduced MEP CT C/A/P (04/2022) - moderate bronchiectasis w/ few areas of mucous plugging Past Medical History: Diagnosis Date Anxiety MAJOR ANXIETY PER PT Celiac disease confirmed on duodenal biopsy 2020 Depressive disorder 1994 Diabetes (H) November 1993 Gastroparesis Heart attack (H) 09/01/2024 Hypertension 2022 Migraines 2002 Uncomplicated asthma 08/2022 Past Surgical History: Procedure Laterality Date CARDIAC SURGERY 09/01/2024 Stent put in heart CARPAL TUNNEL RELEASE RT/LT Right 10/2021 ALSO TRIGGER FINGER RELEASED CHOLECYSTECTOMY 01/2020 COLONOSCOPY 02/2022 EP STUDY TILT TABLE N/A 09/27/2022 Procedure: Tilt Table Study; Surgeon: Xavier Marte MD; Location: [facility] LONGITUDINAL FLOAT OPERATOR ESOPHAGOSCOPY, GASTROSCOPY, DUODENOSCOPY (EGD), COMBINED N/A 05/17/2021 Procedure: ESOPHAGOGASTRODUODENOSCOPY, WITH BIOPSY; Surgeon: Brandon Garcia DO; Location: [facility] 2007 TUBAL LIGATION VASCULAR SURGERY 03/18/2025 TCAR on right side of neck; stent placed Family History Problem Relation Age of Onset Brain Tumor Maternal Uncle Cancer Maternal Uncle Glioblastoma Cancer Paternal Grandmother Ovarian cancer Heart Disease Paternal Grandfather Depression Mother Depression Brother Depression Maternal Grandmother Depression Daughter Hypertension Father Asthma Sister Hypertension Sister Anxiety Disorder Daughter Depression Daughter Hypertension Daughter Substance Abuse Maternal Grandfather Other Cancer Maternal Grandfather Cancer Other Substance Abuse Brother Asthma Brother Depression Brother Cancer Maternal Uncle Glioblastoma Brain Tumor Maternal Uncle Social History Socioeconomic History Marital status: Spouse name: Not on file Number of children: Not on file Years of education: Not on file Highest education level: Not on file Occupational History Not on file Tobacco Use Smoking status: Every Day Current packs/day: 0.50 Average packs/day: 0.5 packs/day for 48.5 years (24.3 ttl pk-yrs) Types: Cigarettes, Pipe Start date: 10/26/2006 Passive exposure: Current Smokeless tobacco: Never Vaping Use Vaping status: Never Used Substance and Sexual Activity Alcohol use: Not Currently Comment: RARELY Drug use: Yes Types: Marijuana Comment: MEDICAL MARIJUANA Sexual activity: Not Currently Partners: Male control/protection: Post-menopausal, Female Surgical Other Topics Concern Parent/sibling w/ CABG, NE or angioplasty before 65F 55M? No Social History Narrative Not on file Social Drivers of Health Financial Resource Strain: Low Risk (05/23/2022) Received from [facility] Financial Resource Strain Difficulty of Paying Living Expenses: 3 Difficulty of Paying Living Expenses: Not on file Food Insecurity: No Food Insecurity (12/17/2024) [facility] Food Insecurity Do you worry your food will run out before you are able to buy more?: 1 Transportation Needs: No Transportation Needs (12/17/2024) [facility] Transportation Needs Does lack of transportation keep you from medical appointments?: 1 Does lack of transportation keep you from work, meetings or getting things that you need?: 1 Physical Activity: Inactive (12/04/2019) Received from [facility] Exercise Vital Sign On average, how many days per week do you engage in moderate to strenuous exercise (like a brisk walk)?: 0 days On average, how many minutes do you engage in exercise at this level?: 0 min Stress: Stress Concern Present (12/04/2019) Received from [facility] - Occupational Stress Questionnaire Feeling of Stress : Very much Social Connections: Socially Integrated (12/17/2024) Received from [facility] Social Connections Do you often feel lonely or isolated from those around you?: 0 Interpersonal Safety: Not on file Housing Stability: Low Risk (12/17/2024) [facility] Housing Stability What is your housing situation today?: 1 35 minutes spent reviewing chart, reviewing test results, talking with and examining patient, formulating plan, and documentation on the day of the encounter. Hu Gasca MD Pulmonary and Critical Care Medicine [facility] TING MANAGER documented in this encounter Nursing Notes * Keena Gardner LPN - 04/29/2025 1:00 PM CST Chief Complaint Patient presents with RECHECK Moderate persistent asthma without complication Vitals: 04/29/25 1308 BP: 121/76 Pulse: 91 Resp: 16 Weight: 84.4 kg (186 lb) Height: 1.702 m (5' 7) Body mass index is 29.13 kg/m??. Chetan Gardner LPN TING MANAGER documented in this encounter Plan of Treatment DateTypeDepartmentCare Team (Latest Contact Info)Gbkllateduj70/31/2025 2:00 PM CSTAncillary Procedure [facility] [place] [address] [place] [address] 1st [place] [phone] Yarelis Leavitt, PA-C [place] [facility] [address] [place] [place] [address] 07/21/2025 10:15 AM CSTOffice Visit [facility] [place] [id number] [place] [address] Drive [address] [place], [place] [address] [place] [address] [place] [id number] 09/24/2025 3:30 PM CDTOffice Visit [facility] [address] 3rd [place] [phone] Xavier Saldivar MD [address] [place] [address] [phone] documented as of this encounter Visit Diagnoses Diagnosis Moderate persistent asthma without complication Unspecified asthma documented in this encounter Additional Health Concerns AssessmentNoted TimePHQ-9 Depression Total Score: 11:21 AM AUDITING MANAGER documented as of this encounter Care Teams Team MemberRelationshipSpecialtyStart DateEnd Date Clay Hoyt MD PCP - GeneralSports Medicine10/22/20 Xavier Saldivar MD [address] [place] [address] [phone] Neurology10/22/20 Xavier Saldivar MD [address] [place], [place] [id number] [place], [place] [phone] Assigned Neuroscience Provider01/02/[address] [place] [address] [phone] Registered DietitianDietitian, Zixmjsrncl53/23/21 [place] [address] [place] [address] Assigned Pain Medication Provider12/02/22 Hu Gasca MD [address] [place] [address] [phone] MDCritical Care08/02/23 Comfort Cook, PhD LP [address] [place] [address] 299285 PsychologistNeuropsychology08/17/23 Lukas Mosher MD [address] [place] [address] [phone] Lyndsayurology08/17/23 Xavier Marte MD [address] [place] [address] [phone] Assigned Heart and Vascular Provider12/18/23 Hu Gasca MD [address] [place] [address] [phone] Assigned Pulmonology Aboqqynf48/23/24 Larry Rosas, PhD LP [address] [place], [place] [address]255 Assigned Behavioral Health Ovaejvim32/23/24 Krystal Rico [facility] [address] [place], [place] [address] PharmacistPharmacist09/25/24 Krystal Rico, [facility] [address] [place] [address] Assigned [place] Pharmacist10/17/24documented as of this encounter
--- OUTSIDE RECORDS SUMMARY | 2025-05-19 02:58 | XMS_ITS | Continuity of Care Document ---
Author Organization [facility] Address [address] [address] [place] [address] Phone Care Team Providers Care Mangle Roller Name Role Phone Kaylin Pa Unavailable Unavailabl e Allergies, Adverse Reactions, Alerts Substance Reaction Status Criticality sulfamethoxazole Nausea/Vomiting Active No Infor mation trimethoprim Nausea/Vomiting Active No Informati on sulfamethizole Nausea/Vomiting Active No Informa tion CIPROFLOXACIN HCL Nausea/Vomiting Active No Info rmation Sulfa (Sulfonamide Antibiotics) Nausea/Vomiting Active No Information Medications Medication Instructions Dosage Effective Dates (start - stop) Status Comments pantoprazole 40 mg tablet,delayed release take 1 tablet by ORAL route 2 times every day 30 min before meals 40 MG - Active ondansetron HCl 4 mg tablet take 1 tablet by oral route up to twice daily as needed for nausea - Active levalbuterol HFA 45 mcg/actuation aerosol inhaler inhale 2 puff by inhalation route every 6 hours 90 MCG - Active Wegovy 0.25 mg/0.5 mL subcutaneous pen injector inject (0.25MG) by subcutaneous route every week on the same day of each week 0.25 MG - Active METOCLOPRAMIDE 10 MG TABLET TAKE 1 TABLET BY MOUTH 4 TIMES DAILY BEFORE MEALS AND AT BEDTIME - Active aspirin 81 mg tablet take 1 tablet by oral route every day 81 MG - Active buprenorphine HCl [address] 2 tablet by sublingual route every day allow to dissolve slowly in mouth without chewing or swallowing 4 MG - Active Plavix 75 mg tablet take 1 tablet by oral route every day 75 MG - Active insulin degludec (U-100) 100 unit/mL (3 mL) subcutaneous pen inject by subcutaneous route as per insulin protocol 0.00 - Active levothyroxine 50 mcg capsule take 1 capsule by oral route every day 50 MCG - Active metoprolol succinate ER 25 mg tablet,extended release 24 hr take 0.5 tablet by oral route every day 12.5 MG - Active nitroglycerin 0.[address] 1 tablet by sublingual route at 1st sign of attack; may repeat every 5 minutes up to 3 tabs; if norelief seek medical help 0.4 MG - Active rosuvastatin 20 mg tablet take 1 tablet by oral route every day 20 MG - Active venlafaxine ER 150 mg tablet,extended release 24 hr take 1 tablet by oral route every day in the morning at the same time each day with food 150 MG - Active TRELEGY ELLIPTA (unknown strength) inhale 1 puff by inhalation route every day at the same time each day Not Available - Active ONDANSETRON HCL 4 MG TABLET TAKE 1 TABLET BY MOUTH EVERY 8 HOURS NEEDED - Active Belbuca [address] 1 film by buccal route 2 times every day against the inside of the cheek, holding in place for 5 seconds, 450 MCG - Active CYCLOBENZAPRINE HCL (unknown strength) take 1 tablet by oral route 3 times every day Not Available - Active alprazolam 1 mg tablet take 1 tablet by oral route 4 times every day if needed - Active Dexcom G6 [employer] Analyst misc use for continuous blood glucose monitoring - Active gabapentin 300 mg capsule take 2 capsule by oral route 3 times every day 600 MG - Active insulin aspart (U-100) 100 unit/mL (3 mL) subcutaneous pen inject 5-8 units by subcutaneous route 3 times daily - Active trazodone 150 mg tablet take 2 tablet by oral route every day 300 MG - Active venlafaxine ER 75 mg capsule,extended release 24 hr take 1/2 capsule by oral route in the morning; take 1 capsule at dinner - Active Procedures Procedure Date Offic/outpt E&m Estab Low Esophageal Motility Study Offic/outpt E&m Estab Moderate Offic/outpt E&m Estab High Offic/outpt E&m Estab Mod-hi 2 24 Routine Serum Collection Offic/outpt E&m Estab Low-mod 3 Routine Serum Collection Established Level 5 No Charge Colonoscopy Flex; W/remov Les- Colonoscopy Flex; W/bx 1/mx Level Iv-surg Path Gross/micro 22 Dietitian New Virtual Visit Ugi Endo; W/bx 1/mx Level Iv-surg Path Gross/micro 22 Offic/outpt E&m Estab Mod-hi 2 22 Offic/outpt E&m New Mod-hi Routine Serum Collection Advance Directives Directive Yes / No Effective Date File Name No Information Encounters Encounter Description Practice Location Reason(s) For Visit Diagnoses Date Provider Providers Copied on Encounter [facility] [address] [address], [place], [id number], [place] tel:[phone] [facility] No Information 5 Vamsi Ewing. [address], [place], [id number], [place]. tel:[phone] Referring Provider: Referral Self, USE FOR SELF REFERRALS. [facility] [address] [address], [place], [id number], [place] tel:[phone] [facility] No Information 5 Tree Santoyo. [address], [place], [place], [address], [place]. tel:[phone] [facility], [address] [address], [place], [id number], [place] tel:[phone] [facility] No Information 0 5 [facility] Kaylin. [address], [place], [address], [place]. tel:[phone] Offic/outpt E&m Estab Low [facility], [address] [address], [place], [address], [place] tel:[phone] [facility] GI Symptoms or Concerns (chief complaint) Esophagogastric junction outflow obstructionGastr oparesis 5 [place] NICHO Yarelis. [address], [place], [place], [address], [place]. tel:[phone] Clay Hoyt MD. tel:[phone] erring Provider: Referral Self, USE FOR SELF REFERRALS. [facility], [address] [address], [place], [address], [place] tel:[phone] [facility] No Information 5 [facility] Kaylin. [address], [place], [address], [place]. tel:[phone] [facility], [address] [address], [place], [address], [place] tel:[phone] [facility] Dysphagia, unspecifiedEsoph agogastric junction outflow obstructionOther diseases of stomach and duodenum 5 Irving Cameron. [address], [place], [address], [place]. tel:[phone] Clay Hoyt MD. tel:[phone] erring Provider: Referral Self, USE FOR SELF REFERRALS. Offic/outpt E&m Estab Moderate [facility], [address] [address], [place], [id number], [place] tel:[phone] [facility] GI Symptoms or Concerns (chief complaint) GastroparesisDys phagia, unspecified type 5 Vamsi Ewing. [address] [facility] [address], [place], [address], [place]. tel:[phone] Clay Hoyt MD. tel:[phone] erring Provider: Referral Self, USE FOR SELF REFERRALS. Offic/outpt E&m Estab High [facility], [address] [address], [place], [address], [place] tel:[phone] [facility] GI Symptoms or Concerns (chief complaint) Epigastric abdominal painGastroparesi sSymptomatic hypotension 5 [facility] NICHO Benavidesanna. [address], [place], [address], [place]. tel:[phone] Owen Suarez MD. tel:[phone] erring Provider: Referral Self, USE FOR SELF REFERRALS. [facility], [address] [address], [place], [address], [place] tel:[phone] [facility] No Information 5 Jamin Bean. [address], [place], [address], [place]. tel:[phone] [facility], [address] [address], [place], [address], [place] tel:[phone] [facility] No Information 5 Michael Hargrove. [address], [place], [place], [address], [place]. tel:[phone] Offic/outpt E&m Estab Mod-hi 2 [facility], [address] [address], [place], [address], [place] tel:[phone] [facility] GI Symptoms or Concerns (chief complaint) GastroparesisCel iac diseaseChronic constipation 4 Michael Hargrove. [address] [facility] [address], [place], [place], [address], [place]. tel:[phone] Owen Suarez MD. tel:[phone] erring Provider: Referral Self, USE FOR SELF REFERRALS. [facility], [address] [address], [place], [address], [place] tel:[phone] [facility] No Information 4 Jamin Bean. [address], [place], [address], [place]. tel:[phone] [facility], [address] [address], [place], [address], [place] tel:[phone] [facility] Celiac disease 3 Nenita Bell. [address], [place], [place], [address], [place]. tel:[phone] Owen Suarez MD. tel:[phone] Offic/outpt E&m Estab Low-mod [facility], [address] [address], [place], [address], [place] tel:[phone] [facility] GI Symptoms or Concerns (chief complaint) Celiac diseaseGastropar esisNauseaChroni c constipation 3 Nenita Bell. [address] [facility] [address], [place], [place], [address], [place]. tel:[phone] Owen Suarez MD. tel:[phone] erring Provider: Larry Valencia PAC, [address], [place], [address] . tel:[phone] [facility], [address] [address], [place], [address], [place] tel:[phone] [facility] No Information 3 Valencia PAC Larry. [address], [place], [id number], [place]. tel:[phone] Established Level 5 [facility], [address] [address], [place], [address], [place] tel:[phone] [facility] GI Symptoms or Concerns (chief complaint) Celiac diseaseGastropar esisIrregular bowel habitsAdenomatou s polyp of transverse colon 2 Valencia PAC Larry. [address], [place], [address], [place]. tel:[phone] Owen Suarez MD. tel:[phone] erring Provider: Referral Self, USE FOR SELF REFERRALS. [facility], [address] [address], [place], [id number], [place] tel:[phone] [facility] GI Symptoms or Concerns (chief complaint) Celiac diseaseWeight loss 2 Valdez DRYER FEEDER Kasia. [address], [place], [address], [place]. tel:[phone] Owen Suarez MD. tel:[phone] erring Provider: Referral Self, USE FOR SELF REFERRALS. [facility], [address] [address], [place], [address], [place] tel:[phone] [facility] GI Symptoms or Concerns (chief complaint) Colorectal polypsDiarrhea, unspecifiedBenig n neoplasm of transverse colonBenign neoplasm of transverse colon 2 Venkat Licona. [address], [place], [place], [address], [place]. tel:[phone] Owen Suarez MD. tel:[phone] erring Provider: Owen Suarez MD E, [address] [address], [place], [address]. tel:[phone] [facility], [address] [address], [facility], [address], [place] tel:[phone] [facility] GI Symptoms or Concerns (chief complaint) GastroparesisDie tary counseling and surveillance 2 Sabrina Tripathi. [address] [facility] [address], [facility], [address], [place]. tel:[phone] Owen Suarez MD. [phone] erring Provider: Owen Suarez MD E, [address], [place], [address]. tel:[phone] [facility], [address] [address], [facility], [address], [place] tel:[phone] [facility] GI Symptoms or Concerns (chief complaint) Celiac diseaseDysphagia , unspecifiedCelia c diseaseDysphagia , unspecified 2 Leo Jang. [address] [facility] [address], [address], [facility], [address], [place]. tel:[phone] Owen Suarez MD. [phone] erring Provider: Referral Self, USE FOR SELF REFERRALS. Offic/outpt E&m [facility] Mod-hi 2 [facility], [address] [address], [facility], [address], [place] tel:[phone] [facility] GI Symptoms or Concerns (chief complaint) GastroparesisCel iac sprueWeight lossDysphagia, unspecified typeAlternating constipation and diarrhea 2 José Miguel Pedroza. [address] [facility] [address], [address], [facility] [place], [address], [place]. tel:[phone] Owen Suarez MD. [phone] erring Provider: Owen Suarez MD E, [address], [place], [address]. tel:[phone] Offic/outpt E&m New Mod-hi [facility], [address] [address], [place], [id number], [place] tel:[phone] [facility] GI Symptoms or Concerns (chief complaint) GastroparesisNau seaWeight lossChronic diarrheaCeliac sprue 2 Randi John. [address] [facility], [place], [address], [place]. tel:[phone] Owen Suarez MD. tel:[phone] erring Provider: Owen Suarez MD E, [address] [facility] [address], [place], [address]. tel:[phone] [facility] ELIJAH, [address] [address], [place], [address], [place] tel:[phone] [facility] No Information 2 Jamin Bean. [address] [facility] [address], [place], [address], [place]. tel:[phone] Family History Family Member Type Diagnosis Age At Onset Father Problem (finding) GERD Father Problem (finding) Alcoholism Brother Problem (finding) Asthma Daughter Problem (finding) Thyroid disorder Daughter Problem (finding) GERD Sister Problem (finding) Asthma Sister Problem (finding) GERD Father Problem (finding) Cirrhosis Immunizations Vaccine Date Status Comments zoster vaccine recombinant administered N ote: [facility] bi-directional interface ; Source: Other Registry zoster vaccine recombinant administered N ote: [facility] bi-directional interface ; Source: Other Registry Afluria Qd administered Note: M [facility] bi-directional interface ; Source: Other Registry SARS-COV-2 (COVID-19) vaccin e, mRNA, spike protein, LNP, bivalent, preservative free, 50 mcg/0.5 mL or 25 mcg/0.25 mL dose administered Note: [facility] bi- directional interface ; Source: Other Registry Pneumococcal conjugate vacci ne 20-valent (PCV20), polysaccharide [id number] conjugate, adjuvant, preservative free administered Note: [facility] bi-direct ional interface ; Source: Other Registry Afluria Qd administered Note: M [facility] bi-directional interface ; Source: Other Registry SARS-COV-2 (COVID-19) vaccin e, mRNA, spike protein, LNP, preservative free, 100 mcg/0.5mL dose or 50 mcg/0.25mL dose administered Note: [facility] bi -directional interface ; Source: Other Registry Afluria Qd administered Note: M [facility] bi-directional interface ; Source: Other Registry SARS-COV-2 (COVID-19) vaccin e, vector non-replicating, recombinant spike protein-[id number], preservative free, 0.5 mL administered Note: [facility] bi- directional interface ; Source: Other Registry Afluria Qd administered Note: M [facility] bi-directional interface ; Source: Other Registry tetanus toxoid, reduced diphtheria toxoid, and acellular pertussis vaccine, adsorbed administered Note: [facility] b i-directional interface ; Source: Other Registry Prevnar 13 administered Note: [facility] bi-d irectional interface ; Source: Other Registry influenza virus vaccine, unspecified formulation administered Note: [facility] bi-di rectional interface ; Source: Other Registry Payers Payer name Insurance type Covered constitution party ID Authoriza tion(s) No Information Social History Type Description Quantity Date Captured Comments Alcohol Use Details Unknown Caffeine Use Details Unknown Tobacco Use Status Smoking Status No Information Sex Female Chief Complaint And Reason For Visit No Information Reason For Referral Reason For Referral No Information Plan Of Treatment Date Type Action Status Referral Ordered: follow-up visit 1 Year Appointment date/timeframe: 1 Year [id number] Ordered: DEXA Bone Density Study; Axial Skeleton (e.g. Hips, Pelvis, Spine) Appointment date/timeframe: First Available [id number] Ordered: Celiac: TTG IgA + Total IgA [id number] Ordered: EGD Appointment date/timeframe: 03/30/2022 [id number] Ordered: Colonoscopy Appointment date/timeframe: 04/08/2022 ordered History Of Present Illness Encounter Date Complaint History Of Prese nt Illness GI Symptoms or Concerns Rebekah cruz is a pleasant 54-year-old female who is seen today in [facility]ophageal Clinic for evaluation of EGJ outflow obstruction.Patient was last seen by Kaylin NAVA 2 months ago for management of dysphagia and gastroparesis. She had been admitted to [facility] 11/2024 with nausea and vomiting. She underwent upper GI series that showed possible obstruction of the pylorus as well as gastroparesis and esophageal dysmotility. EGD during that admission showed no obstruction. Dilation of the esophagus (balloon dilation to 18 mm) and pylorus (dilation to 18 mm) was performed. Small bowel biopsy was normal.Gastroparesis symptoms are currently well-controlled with Reglan 10 mg 4 times daily. She also takes pantoprazole 40 mg twice daily for GERD. She recently started Wegovy and notes some mild nausea with this, but no significant change to her GI symptoms.Regarding dysphagia, patient describes episodes of food feeling stuck at the bottom of her esophagus. This will cause some discomfort for about 5 minutes and then she can feel the food drop down into her stomach. This typically occurs with pills and solid foods, no trouble with liquids. There is no associated vomiting or regurgitation of food. Episodes occur anywhere from several times per day to several times per week.Manometry was performed 01/2025 and this showed EGJ outflow obstruction with elevated IRP 20. Peristalsis is normal with all swallows.Medical history is also notable for celiac disease, coronary artery disease, carotid artery stenosis status post recent surgery, asthma, hypertension, type 1 diabetes, polyneuropathy, fibromyalgia obesity, depression, anxiety. Of note, prior EGD here in 2021 was entirely normal, including esophageal biopsies. GI Symptoms or Concerns Ms. Bridgett Hall is a 54-year-old female who presents for follow-up on abdominal pain and gastroparesis. Her past medical history is significant for thyroid disease, celiac disease, heart attack, diabetes.She was last seen in clinic with myself 12/17/2024 where I recommended she proceed to emergency department. She was admitted. I was able to review records from her admission. Brief Hospital course includes upper GI series showing evidence of possible obstruction of the pylorus as well as gastroparesis and esophageal dysmotility. EGD completed 12/24 showing no obstruction. She also had urinary retention and Hopper catheter was placed.She states she has been feeling better since hospitalization. She has had no episodes of vomiting and her nausea has significantly improved. She will still occasionally feel nausea at night. She is using Reglan daily for her nausea/gastroparesis. (She stopped Zofran as it was increasing constipation she does admit to some heartburn and burping. We discussed the results of her upper GI series including esophageal dysmotility. She states medications seem to get stuck in her throat and foods feel like they do not go all the way through. She states she did get new teeth which seems to help with the symptoms. Regards to her bowel habits, she states she had an episode of uncontrollable diarrhea after eating pizza. She ordered gluten-free but states it did not taste like it was gluten-free. She states she has even had some incontinence with loose stools. Her bowel habits have since returned to normal and she has been taking MiraLAX daily (which allows her to have a bowel movement daily). She is also using Gas-X with relief of her gas symptoms and Bentyl to help with abdominal discomfort.Diagnostics:EGD 12/24/2024: Dilation of esophagus with 15, 16.5, to 18 mm balloon dilator performed. Duodenal mucosal changes seen diagnostic of celiac disease. Dilation of pylorus performed to 18 mm.Colonoscopy 04/08/2022: Normal colon biopsies, 1 hyperplastic polyp, 1 sessile serrated adenoma. Repeat in 5 years. GI Symptoms or Concerns Ms. Bridgett Hall is a 54-year-old female who presents for follow-up on abdominal pain. Her past medical history is significant for thyroid disease, celiac disease, gastroparesis, heart attack, and diabetes. She was last seen in clinic with Dr. Rodriguez 04/01/2024. Please see this note for further details.Of note patient was confused and somewhat difficult historian during her visit. I had to remind her of my questions multiple times. Her continuous glucose monitor showed she was currently at 121. Her blood pressure was 75/45 and she was also complaining of dizziness. She states she had another low BP reading a couple of weeks ago after she felt her legs give out. She informed me that she had a heart attack in August and has been going to cardiac rehab where they are trying to control her history of high blood pressure. She also states she has been unable to urinate.She states she has been unable to eat anything except yogurt. She is having severe epigastric pain that she states is 8 or 9/10 on the pain scale. She states that it feels like a constant cramp and was teary through entire visit due to pain. She told me she took Phenergan for her pain and to help her sleep. She also has nausea and vomiting with known history of gastroparesis. She states she will vomit about 3 times per week. She uses Zofran as needed without significant relief. She also has constipation which she believes may be due to her levothyroxine. Additionally, on abdominal exam, she had guarding and my hand placement on her abdomen (without pressure) caused her pain. GI Symptoms or Concerns Klaudia littleents today for follow-up of her gastroparesis and celiac disease. She states that she was struggling with nausea, vomiting, and abdominal pain after eating. She notes that the nausea will occur in the morning and be severe. She was having nonbloody vomiting about twice a week. She is having abdominal pain on a daily basis.She started thyroid replacement therapy about 3 weeks ago, and has noticed significant improvement since then. She is still having nausea in the morning, however it is more mild. She is treating this with ondansetron with improvement. She has not had any vomiting since starting the thyroid medication. She notes her abdominal pain has improved as well.However, since taking the thyroid medication, she has been struggling with constipation. She states she is having about 1 bowel movement per week, which is hard, requiring straining to pass. She denies any diarrhea or blood in her stools. She states her weight is stable.She reports her most recent hemoglobin A1c as 7.9, although she notes she was hospitalized for an episode of diabetic ketoacidosis recently. Previously she had been on Reglan for the gastroparesis, however she has not been taking this for some time. GI Symptoms or Concerns This is a pleasant 52-year-old female who presents for multiple GI issues. Patient has a history of celiac disease diagnosed in 2020. She is following a strict gluten free diet at this point. She has seen dietitian in past. Last endoscopy was performed in 2021 which showed persistent changes of celiac disease-Victor classification 1. Patient also has a history of gastroparesis diagnosed via gastric emptying study in February 2022. Patient does complain of chronic nausea for the past several months. Patient states the nausea is mostly in the morning when she wakes up. She denies any vomiting so far. It gets better throughout the day. She denies any abdominal pain. She states that her acid reflux is well controlled using Protonix twice daily. She also complains of incomplete evacuation and intermittent constipation. She does have bowel movements every day to every other day. She denies any diarrhea at this point. She is not had a bone density testing recently. She continues to GI Symptoms or Concerns This is a 51-year-old female with a history of diabetes, gastroparesis, celiac disease, chronic pain, neuropathy, medical cannabis, anxiety with chronic benzodiazepine use since her 20s, and tobacco use. She qualified for SSDI in 2020.In regards to celiac disease, she had an EGD done through [facility] and this showed Victor type 3a. She did have a positive tTg-IgA before the biopsy was done. It does not appear that we have information about what her antibody level was initially. Her tTg-IgA was checked in February 2022 was normal at 3. She had small-bowel biopsies done by us on March 30, 2022 showing Victor 1 findings. Esophageal biopsies were unremarkable of the mid and distal esophagus.She is admittedly overwhelmed and tearful about needing to be on a diabetes diet, gastroparesis diet, and gluten-free diet. She has been seen by a dietitian outside of our group and has more recently been seen by a dietitian in our group. She shares about going out to Dominic Reeder GI Symptoms or Concerns GI Symptoms or Concerns GI Symptoms or Concerns [facility] ent Nutrition AssessmentAnthropometrics: Patient reports that weight is currently 130lb, though she used to weigh 150lb this past September. Contributes this to multiple GI issues and not knowing what to eat. Food and Exercise History: Diet Recall: Breakfast: Starbucks cold latteLunch: Sometimes skips but sometimes eats yogurtDinner: Lasagna, pork roast or meatloaf, mashed potatoes and cornNutrition Diagnosis: Altered GI function related to gastroparesis as evidenced by 30% gastric retention at 4 hours per gastric emptying study. Nutrition Discussion and Education: Met with patient via virtual visit today. States that she is frustrated with trying to find food to eat given that she has type 1 diabetes, gastroparesis and celiac disease. Has also recently had her gallbladder removed. Is scheduled for a colonoscopy tomorrow. Patient reports that she is familiar with a gluten free diet but upon conversation, seems that there is some question on what gluten is and is not. Discussed this today. Patient requested a copy of [facility] celiac folder which was sent through the patient portal. This will be a good refresher and resource for her. Also discussed in detail, diet for gastroparesis. Talked about ideas for meals, eating a small, frequent meal pattern, what to take into consideration for her diabetes. Patient does state that she is having episodes of night time incontinence which are coffee ground in appearance. Colonsocopy tomorrow. Patient appreciative of visit today. GI Symptoms or Concerns GI Symptoms or Concerns Patient is a 51-year-old female who presents today to clinic to discuss gastroparesis. Patient was just seen in clinic last week on 03/20/2022, please see his for full history. In review patient was recently diagnosed with gastroparesis through an outside provider. Stated having a gastric emptying study done 02/28/2022 showed 30 percent gastric retention 4 hours. She states being started on Reglan 5 mg 4 times daily since that time with mild improvement but continuing nausea. Denies any early satiety, abdominal fullness, or vomiting. Does have type 1 diabetes with peripheral and autonomic neuropathy. States her last hemoglobin A1c reading 6.5 percent and she has tight glycemic control and has had this for quite some time.She also carries a diagnosis of celiac sprue diagnosed through a biopsy during upper endoscopy April of 2020. She does state following a strict gluten free diet but does continue to have loose stools intermittently. She is history of constipation a GI Symptoms or Concerns She is a 51-year-old female who is referred by Dr. Owen Suarez, regarding newly diagnosed gastroparesis with nausea, weight loss, reflux symptoms, and chronic loose stool. The patient has a history of diabetes, peripheral and autonomic neuropathy, chronic headaches. She has taken Protonix for many years for reflux symptoms, but was having more GI symptoms. Since September 2021, she has unintentionally lost about 20 pounds now weighing about 133 pounds.She was also diagnosed with celiac sprue at [facility] in April 2021 by EGD with duodenal biopsy after celiac labs were abnormal. Limited records were scanned and reviewed. She had difficulty following up with GI and decided to schedule an appointment with us. She has been on a strict gluten-free diet. She continued to have loose stools intermittently. There is a history of intermittent constipation in the past, though this has not occurred recently.Of note, she was on buprenorphine for several months last spring for back and neck neuropathy. With this, it seemed to increase her acid reflux and caused left-sided abdominal pain. After stopping the medications, some of her GI symptoms improved. Later following carpal tunnel and trigger finger surgery, she was on a lower dose of this pain patch and she had vomiting and increased GI symptoms. She has now been off of buprenorphine for about a month or so and GI symptoms persist.Her diet is quite limited due to her diabetes and celiac.She did have a gastric emptying study on February 28, which showed a 30% gastric retention at 4 hours, which was increased and consistent with gastroparesis. She has frequent burping. She is now using Reglan 5 mg four times daily with mild improvement, but continues to have nausea. She denies use of NSAIDs. She is status post cholecystectomy 2 years ago and does not think her diarrhea has worsened since then. She has never had a colonoscopy. Functional Status Date Functional Assessmen t No Information Instructions Date Instruction Additional Infor saroj It was great seeing you today!We discussed the following:- Continue taking your Reglan (metoclopromide) which I have sent in a refill for you for.- I recommend taking your dicyclomine just as needed for abdominal pain. - I have ordered esophageal manometry (esophageal motility study). This will evaluate your swallowing difficulties. [facility] will call to help you schedule. - I will be giving you information on gastroparesis diet. - continue taking Miralax daily- follow-up with me after your esophageal manometry or sooner if needed. HOW TO REACH ME:-You can reach me by messaging through the patient portal or calling my patient coordinator Joselin at [phone] Ext. [phone]. Related to Gastroparesis It was great seeing you today!We discussed the following:- As we discussed, I recommend you go to the urgent care or emergency department. Your blood pressure is significantly decreased and because you are also having dizziness and severe abdominal pain, I would like tests to be done as soon as possible. I would like you to have bloodwork done and possible abdominal CT scan.- I have ordered an upper endoscopy for you to schedule if they do not preform this in the hospital. - I would like you to follow-up after your ED visit/upper endoscopy. HOW TO REACH ME:-You can reach me by messaging through the patient portal or calling my patient coordinator Joselin at [phone] Ext. [phone]. Related to Epigastric abdominal pain Colon Cancer Prevention Related to Colorectal polyps Colon Polyps Related to Color ectal polyps 1. Try to follow a s mall, frequent meal pattern. Avoid large meals or snacks as this will empty from your stomach slower than a smaller meal would. Chew your food well. Sitting up for 1-2 hours after a meal is often helpful. 2. Avoid high roughage foods like lettuce, raw fruits or vegetables with peels, skins or seeds. Soft, well cooked, canned or blended will be better tolerated. 3. Minimize high fat meals/snacks. Remember that fat may be better tolerated in a liquid form than it is in solid form (chicken skin, etc). 4. Stick with ground, soft or tender meats. 5. Regarding your Celiac disease, refer to the handout I sent you through the patient portal, this may be a good refresher for you and have some helpful resources in it. 6. Nutrition drinks may be good way to get in some extra nutrition. I will contact [employer] to have them send you samples. A employment representative should be calling you to discuss potential insurance coverage as well. 7. Feel free to set up a follow up visit with me as needed or send me questions/ concerns through the patient portal. Related to Gastroparesis Celiac Folder Related to Gastr oparesis 1. Aim to try some p arts when able of the gastroparesis diet as well as celiac, I know this is challenging and I give you so much credit! The assistant business manager visit will also be helpful for this. 2. I will add the EGD hopefully to the already scheduled colonoscopy, our schedulers will call you about this. 3. Continue the pantoprazole 40mg twice daily at least 30 minutes prior to breakfast and dinner. 4. I will send an RX of famotidine 40mg to add on at bedtime. 5. [employer] is a great option as it is a plant based nutritional beverage, you can look into this if interested as well. 6. You can trial a 1/2 capful of miralax daily as well to help with bowel regulation in the absence of dietary fiber. 7. Follow up after the procedures and call in the meantime with questions and concerns. You can reach me at [phone] Related to Gastroparesis 1. Schedule colonosc opy with biopsy.2. Serologies as ordered.3. Try increasing Protonix to twice daily dosing and consider adding Pepcid or famotidine as needed.4. Provide information on gastroparesis.5. Schedule followup in the [facility], but also meet with a dietitian. Related to Gastroparesis please increase Prot braydon to 40 mg twice daily, 30 minutes before foodyou could also use Pepcid (famotidine) over the counter 20 mg as needed for reflux Related to Chronic diarrhea Gastroparesis Folder Related to Gastroparesis Assessments Type Assessment Date No Information Patient Care Teams Name Effective Dates (start - stop) Status Members No Information
[2025-05-22] VITALS (13 sets, daily range): BP systolic 137–157; BP diastolic 72–85; PULSE 80–101; RESP 16–18; TEMP 36.6; O2SAT 94–98; BMI 27.9
--- NOTE | 2025-05-22 16:01 | ED.ABDPAIN ---
HPI - Abdominal Pain General Chief Complaint: Abdominal Pain Stated Complaint: Upper abdominal pain Time Seen by Provider: 05/22/25 15:31 History of Present Illness HPI narrative: This 54-year-old female comes in with her significant other reporting abdominal pain for most of the past week. She reports pain in the upper epigastric region radiating through to her back. She wonders if she might have pancreatitis. She does not drink alcohol and states that she has had her gallbladder removed. She did have an increase in her Wegovy dose but her last dose was a couple weeks ago. She contacted [facility] and was instructed to come here for evaluation. She states that her pain is worse when taking food. She has been drinking some juices to try to stay hydrated with some nourishment. She does not report any fevers. Related Data Previous Rx's ?Medication ?Instructions ?Recorded ketorolac 10 mg tablet 10 mg PO TID 5 days #15 tabs 05/22/25 Allergies Allergy/AdvReac Type Severity Reaction Status Date / Time ciprofloxacin (From Cipro) Allergy Verified 05/22/25 14:55 Sulfa (Sulfonamide Allergy Verified 05/22/25 14:55 Antibiotics) trimethoprim Allergy Verified 05/22/25 16:33 Review of Systems Status of ROS Reports: 10 or more systems reviewed and unremarkable except as noted in History and below Narrative Constitutional: No fevers, no weight gain or loss. Eyes: No discharge. No vision changes. HENT: No congestion, no sore throat, no ear pain. Cardiovascular: No chest pain, no palpitations. Respiratory: No shortness of breath, no wheezes, no cough. Gastrointestinal: Upper epigastric abdominal pain as described above. Genitourinary: No dysuria, no hematuria. Musculoskeletal: Normal range of motion. Skin: No rashes, no pruritis. Neurological: No dizziness, weakness, sensory change, speech change. Endo/Heme/Allergies: No bruising or bleeding. No polydipsia. Pysch: no suicidality, no anxiety, no insomnia. All other systems reviewed and are negative. PFSH PFSH Social History Smoking Status: Current every day smoker What tobacco products do you use: cigarettes How often do you have a drink containing alcohol: never AUDIT-C Alcohol total score: 0 Non-prescribed substance use: denies use Exam Narrative: Exam Narrative: Constitutional: Well-developed, well-nourished, no acute distress. HEENT: Normocephalic, atraumatic. Neck: Normal range of motion. Nontender. Supple. Heart: Regular. No murmurs. Normal rate. Intact distal pulses. Lungs: Clear to auscultation. No chest discomfort. No wheezes, rhonchi, or rales. Abdomen: Normal bowel sounds. Upper epigastric abdominal pain. She reports that it radiates through to her back. No rebound tenderness. Genitalia: Deferred. Back: No midline tenderness. Normal range of motion. Extremities: Normal range of motion. No injury. Skin: Intact. No rash. Warm. No erythema or pallor. Neurologic: No altered sensation. No weakness. Alert and oriented. Psychiatric: No suicidality. No anxiety or depression. No insomnia. Nursing notes and vitals signs are reviewed. Const: Vital Signs, click to edit/add: Vital Signs - 24 hr 05/22/25 14:51 05/22/25 16:38 05/22/25 16:45 Temperature 98 F Pulse Rate 85 84 Pulse Rate [Pulse Oximeter] 101 H Respiratory Rate 18 Blood Pressure Blood Pressure [Ri ght Upper Arm] 137/85 Pulse Oximetry 98 97 95 Oxygen Delivery Me thod Room Air 05/22/25 17:00 05/22/25 17:02 05/22/25 17:15 Temperature Pulse Rate 81 80 81 Pulse Rate [Pulse Oximeter] Respiratory Rate 16 Blood Pressure 144/78 H Blood Pressure [Ri ght Upper Arm] Pulse Oximetry 96 96 96 Oxygen Delivery Me thod Room Air 05/22/25 17:30 05/22/25 17:32 Temperature Pulse Rate 84 83 Pulse Rate [Pulse Oximeter] Respiratory Rate Blood Pressure 157/78 H Blood Pressure [Ri ght Upper Arm] Pulse Oximetry 95 95 Oxygen Delivery Me thod Course Vital Signs Vital signs: Initial Vital Signs Temperature 98 F 05/22/25 14:51 Temperature Source Temporal Artery Scan 05/22/25 14:51 Pulse Rate 101 H 05/22/25 14:51 Pulse Rhythm Regular 05/22/25 14:51 Respiratory Rate 18 05/22/25 14:51 Blood Pressure 137/85 05/22/25 14:51 Blood Pressure Mean 102 05/22/25 14:51 Blood Pressure Position Sitting 05/22/25 14:51 Pulse Oximetry 98 05/22/25 14:51 Oxygen Delivery Method Room Air 05/22/25 14:51 Vital Signs Temperature 98 F 05/22/25 14:51 Pulse Rate 101 H 05/22/25 14:51 Respiratory Rate 18 05/22/25 14:51 Blood Pressure 137/85 05/22/25 14:51 Pulse Oximetry 98 05/22/25 14:51 Oxygen Delivery Method Room Air 05/22/25 14:51 Temperature 98 F 05/22/25 14:51 Pulse Rate 83 05/22/25 17:32 Respiratory Rate 16 05/22/25 17:02 Blood Pressure 157/78 H 05/22/25 17:32 Pulse Oximetry 95 05/22/25 17:32 Oxygen Delivery Method Room Air 05/22/25 17:02 Medications Administered Medications: Discontinued Medications Generic Name Dose Route Start Last Admin Trade Name Freq PRN Reason Stop Dose Admin Sodium Chloride 1,000 mls @ 1,000 mls/hr 05/22/25 16:00 05/22/25 16:28 0.9 % Sodium Chloride 1000 Ml IV 05/22/25 16:59 1,000 mls/hr .Q1H TYREL Administration Ketorolac Tromethamine 30 mg 05/22/25 15:59 05/22/25 16:29 Ketorolac 30 Mg/Ml Inj IVP 05/22/25 16:00 30 mg ONCE ONE Administration Ondansetron HCl 4 mg 05/22/25 15:59 05/22/25 16:29 Ondansetron 2 Mg/Ml Inj IVP 05/22/25 16:00 4 mg ONCE ONE Administration MDM - Abdominal Pain MDM Narrative Medical decision making narrative: This patient comes in with upper epigastric pain as described above. She is maintaining normal vital signs. An IV was established where she received IV fluids and Zofran and Toradol. She is feeling significantly better. Lab results returned with reassuring findings. She is not showing any sign of pancreatitis. Her symptoms are more likely due to the recent increase in her G LP 1 dosing. She states that she was doing well on the previous dose and I stated that it may be worth returning back to that previous dose because of its benefits for her. She is okay to be discharged home. I did provide a prescription for Toradol. Lab Data Labs: Lab Results 05/22/25 Range/Units 16:15 WBC 9.69 (4.50-11.00) K/uL RBC 4.06 (4.00-5.20) m/uL Hgb 11.9 L (12.0-16.0) gm/dL Hct 37.3 (33.0-51.0) % MCV 92 (80-100) fL MCH 29 (26-34) pg MCHC 32 (32-36) gm/dL RDW Coeff of Efrain 13.3 (11.5-15.5) % Plt Count 327 (140-440) K/uL Neut % (Auto) 57.6 (42.0-72.0) % Lymph % (Auto) 31.3 (20-44) % [place] % (Auto) 5.7 (0.0-11.0) % Eos % (Auto) 4.9 (0.0-7.0) % Baso % (Auto) 0.4 (0.0-3.0) % Neut # (Auto) 5.59 (1.7-7.0) K/uL Lymph # (Auto) 3.03 H (0.90-2.90) K/uL [place] # (Auto) 0.60 (0.00-0.90) K/UL Eos # (Auto) 0.47 (0.00-0.50) K/uL Baso # (Auto) 0.04 (0.00-0.30) K/uL Abs Immat Gran (auto) 0.01 (0.00-0.30) K/uL Imm/Tot Granulo (auto) 0.1 % Sodium 133 L (135-149) mmol/L Potassium 4.3 (3.6-5.1) mmol/L Chloride 100 (96-114) mmol/L Carbon Dioxide 28 (20-32) mmol/L Anion Gap 5 L (7-15) mEq/L BUN 12 (7-30) mg/dL Creatinine 0.8 (0.5-1.5) mg/dL Estimated Creat Clear 78.18 Estimated GFR 88 ml/min Glucose 171 H (60-115) mg/dL Calcium 9.2 (8.4-10.6) mg/dL Total Bilirubin 0.3 (0.1-1.5) mg/dL Direct Bilirubin 0.2 (0.0-0.5) mg/dL AST 38 H (12-35) U/L ALT 32 (4-35) U/L Alkaline Phosphatase 165 H (40-150) U/L C-Reactive Protein < 0.5 L (0.5-1.0) mg/dL Total Protein 7.4 (6.0-8.3) g/dL Albumin 4.2 (3.3-5.0) g/dL Lipase 206 (23-300) U/L Discharge Plan Discharge Clinical Impression: Abdominal pain Patient Disposition: Home, Self-Care Condition: Improved Additional Instructions: Take medication as needed and directed. Follow up with MD for ongoing management. Return if worsening. Prescriptions: New ketorolac 10 mg tablet 10 mg PO TID 5 Days Qty: 15 0RF Follow Up/Referrals: Clay Hoyt MD [Primary Care Provider, Family Practice] Stand Alone Forms: [employer] Info Instructions
--- OUTSIDE RECORDS SUMMARY | 2025-05-22 16:11 | XMS_ITS | Encounter Summary ---
Author Organization [facility] Address [address] [place] [address] Care Team Providers Care Talent Scout Name Role Phone Clay Hoyt MD Primary Care Provider [phone] Xavier Saldivar MD Unavailable Xavier Saldivar MD Unavailable Erica Nieto RD Unavailable [phone] Siobhan Rodrigez MD Unavailable [phone] EloHu ricks MD Unavailable [phone] Comfort Cook PhD Unavailable [phone] Lukas Mosher MD Unavailable [phone] Xavier Marte MD Unavailable [phone] Hu Gasca MD Unavailable [phone] Larry Rosas PhD Unavailable [phone] Krystal Rico [facility] Unavailable [phone] Krystal Rico [facility] Unavailable [phone] Reason for Visit * ReasonOnset DateCommentsRefill Kkyxgas3904/21/2025venlafaxine (EFFEXOR XR) 150 MG 24 hr capsule Encounter Details DateTypeDepartmentCare Team (Latest Contact Info)Axqozhrsmsz14/25/2025[facility] Pain Management [address] [place], [place] [id number] [place] [address] [address] [place] [place] [address] Refill Request (venlafaxine (EFFEXOR XR) 150 MG 24 hr capsule) Social History Tobacco UseTypesPacks/DayYears UsedDateSmoking Tobacco: Every DayCigarettes0.5 48.6Started: 10/26/2006PipeStarted: 3Passive Smoke Exposure: Current Smokeless Tobacco: NeverAlcohol UseStandard Drinks/WeekCommentsNot Currently0 (1 standard drink = 0.6 oz pure alcohol)RARELYPHQ-2AnswerDate RecordedPHQ-2 Score4 5Adolescent EducationAnswerDate RecordedGetting School Help NeededNot on file3CommentsNoSex and Gender InformationValueDate Recorded Sex Assigned at RqisyIqxxml25/02/2021 8:35 AM CDTLegal WqnHruqmf96/26/2021 11:46 AM CDTGender LjlptsyfUjbzdx46/02/2021 8:35 AM CDTSexual OrientationStraight 12/27/2020 8:35 AM CDTdocumented as of this encounter Miscellaneous Notes * Telephone Encounter - Jessica Mercado - 04/21/2025 8:45 AM CST Received fax request from [facility] pharmacy requesting refill(s) for venlafaxine (EFFEXOR XR) 150 MG 24 hr capsule Last refilled on 01/16/25-dispensed 90 day fill using 2 refills that were sent with original prescription Pt last seen on 04/07/25 Next appt scheduled for 06/30/25 Will facilitate refill. R READING CLERK documented in this encounter Plan of Treatment DateTypeDepartmentCare Team (Latest Contact Info)Tbikqgiwpoy93/31/2025 2:00 PM CSTAncillary Procedure M [facility] [address] [place] [address] Yarelis Leavitt, PA-C [place] [facility] [address] [facility] JE[place] [address] 07/21/2025 10:15 AM CSTOffice Visit [facility] [place] [address] [place] [address] [place] [address] [address] [address] 09/24/2025 3:30 PM CDTOffice Visit [facility] [address] [place] [phone] Xavier Saldivar MD [address] [place] [id number] documented as of this encounter Visit Diagnoses Diagnosis Chronic pain syndrome documented in this encounter Additional Health Concerns AssessmentNoted TimePHQ-9 Depression Total Score: 11:21 AM METER READING CLERK documented as of this encounter Care Teams Team MemberRelationshipSpecialtyStart DateEnd Date Clay Hoyt MD PCP - GeneralSports Medicine10/22/20 Xavier Saldivar MD [address] [place] [address] Neurology10/22/20 Xavier Saldivar MD [address] [place] [address] Assigned Neuroscience Provider01/02/[address] [place] [address] Registered DietitianDietitian, Ihaokjiwtw84/23/21 [place] [address] [place] [address] Assigned Pain Medication Provider12/02/22 Hu Gasca MD [address] [address] MDCritical Care08/02/23 Comfort Cook, PhD LP [address] [place], [place] [address] PsychologistNeuropsychology08/17/23 Lukas Mosher MD [address] [id number] MDNeurology08/17/23 Xavier Marte MD [address] [place], [place] 45[address] Assigned Heart and Vascular Provider12/18/23 Hu Gasca MD [address] [place] [address] Assigned Pulmonology Wusfkgoo20/23/24 Larry Rosas, PhD LP [address] [place], [place] [address] Assigned Behavioral Health Ufnsajee92/23/24 Krystal Rico, [facility] [address] [facility] [address] PharmacistPharmacist/06/21 Krystal Rico [facility] [address] [place] [address] Assigned MTDewey Pharmacist10/17/24documented as of this encounter
--- OUTSIDE RECORDS SUMMARY | 2025-05-22 16:11 | XMS_ITS | Encounter Summary ---
Author Organization [facility] Address [address] [place] [address] Care Team Providers Care Weigher And Mixer Name Role Phone Clay Hoyt MD Primary Care Provider [phone] Xavier Saldivar MD Unavailable Xavier Saldivar MD Unavailable Erica Nieto RD Unavailable [phone] Siobhan Rodrigez MD Unavailable [phone] EloHu ricks MD Unavailable [phone] Comfort Cook PhD Unavailable [phone] Lukas Mosher MD Unavailable [phone] Xavier Marte MD Unavailable [phone] Hu Gasca MD Unavailable [phone] Larry Rosas PhD Unavailable [phone] Krystal Rico [facility] Unavailable [phone] Krystal Rico [facility] Unavailable [phone] Encounter Details DateTypeDepartmentCare Team (Latest Contact Info)Qtypiediaml92/01/2025Travel Social History Tobacco UseTypesPacks/DayYears UsedDateSmoking Tobacco: Every DayCigarettes0.5 48.6Started: 10/26/2006PipeStarted: 3Passive Smoke Exposure: Current Smokeless Tobacco: NeverAlcohol UseStandard Drinks/WeekCommentsNot Currently0 (1 standard drink = 0.6 oz pure alcohol)RARELYPHQ-2AnswerDate RecordedPHQ-2 Score4 5Adolescent EducationAnswerDate RecordedGetting School Help NeededNot on file3CommentsNoSex and Gender InformationValueDate Recorded Sex Assigned at FwbarNawvzp28/02/2021 8:35 AM CDTLegal QgcPcfugk33/26/2021 11:46 AM CDTGender NyamlzozCsmtpo20/02/2021 8:35 AM CDTSexual OrientationStraight 12/27/2020 8:35 AM CDTdocumented as of this encounter Plan of Treatment DateTypeDepartmentCare Team (Latest Contact Info)Kebkefihgha48/31/2025 2:00 PM CSTAncillary Procedure [facility] [address] [place] [phone] Yarelis Leavitt, PA-C [facility] [address] [place] [id number] 07/21/2025 10:15 AM CSTOffice Visit [facility] [id number] [place] [address] Drive [address] [place], [place] [address] [place] [address] [place] [address] 09/24/2025 3:30 PM CDTOffice Visit [facility] [address] [place] [phone] Xavier Saldivar MD [address] [place] [address] [id number] [place], [place] [id number] documented as of this encounter Visit Diagnoses Not on filedocumented in this encounter Additional Health Concerns AssessmentNoted TimePHQ-9 Depression Total Score: 11:21 AM EMPLOYEE COMMUNICATIONS SPECIALIST documented as of this encounter Care Teams Team MemberRelationshipSpecialtyStart DateEnd Date Clay Hoyt MD [facility]20 Xavier Saldivar MD [address] [place], [place] [id number] [address] Neurology10/22/20 Xavier Saldivar MD [address] [place], [place] [id number] [address] Assigned Neuroscience Provider01/02/[address] [place] [id number] Registered DietitianDietitian, Zzcmakougu20/23/21 [place] [address] [place] [address] Assigned Pain Medication Provider12/02/22 Hu Gasca MD [address] [place] [address] [address] [place], [place] [address] MDCritical Care08/02/23 Comfort Cook, PhD LP [address] [place] [address] PsychologistNeuropsychology08/17/23 Lukas Mosher MD [address] [place] [address] [address] [place], [place] [phone] Neurology08/17/23 Xavier Marte MD [address] [place] [address] Assigned Heart and Vascular Provider12/18/23 Hu Gasca MD [address] [facility] [address] [place] [address] Assigned Pulmonology Exwwjyed01/23/24 Larry Rosas, PhD LP [address] [place], [place] [address] Assigned Behavioral Health Nfxuddjm65/23/24 Krystal Rico [facility] [address] [place] [address] PharmacistPharmacist09/25/24 Krystal Rico [facility] [address] [place] [address] Assigned MTM Pharmacist10/17/24documented as of this encounter
--- OUTSIDE RECORDS SUMMARY | 2025-05-22 16:11 | XMS_ITS | Clinical Summary ---
Author Organization [facility] Address [address] [place] [address] Care Team Providers Care Automotive Power Electronics Engineer Name Role Phone Clay Hoyt MD Primary Care Provider [phone] Xavier Saldivar MD Unavailable Xavier Saldivar MD Unavailable Erica Nieto RD Unavailable [phone] Siobhan Rodrigez MD Unavailable [phone] MilwaukeeHu ricks MD Unavailable [phone] Comfort Cook PhD LP Unavailable [phone] Lukas Mosher MD Unavailable [phone] Xavier Marte MD Unavailable [phone] EloHu ricks MD Unavailable [phone] Larry Rosas PhD Unavailable [phone] Krystal Rico [facility] Unavailable [phone] Krystal Rico [facility] Unavailable [phone] Allergies Active AllergyReactionsCriticalityNoted DateCommentsCiprofloxacinNausea and Vxuokues49/13/2020 Nausea vomiting Ciprofloxacin-HydrocortisoneDiarrhea,Fatigue,Headache,Nausea and Vomiting 12/27/2014Gluten MealDiarrhea,GI Disturbance,Gyhwwh3605/19/2021 Other reaction(s): Constipation, GI Upset, Intolerance-Can't Take, Stomach Upset Sulfa AntibioticsDiarrhea,Fatigue,Headache,Nausea and Toiqlxeu34/02/2014 TrimethoprimNausea and Ycfzyyer38/05/2024 Medications MedicationSigDispense QuantityRefillsLast FilledStart DateEnd DateStatus ALPRAZolam (XANAX) 1 MG tablet Take 1 mg by mouth 5 times daily. Taking 5 times a day06/29/2005ctive traZODone (DESYREL) 150 MG tablet Indications:InsomniaTake 150 mg by mouth at bedtime.05/29/2018Active insulin aspart (NOVOLOG FLEXPEN) 100 UNIT/ML pen Inject subcutaneously. Inject 1 unit(s) to 5 unit(s) subcutaneously before meals (sliding scale)07/09/2022ctive Continuous Blood Gluc Sensor (DEXCOM G7 SENSOR) MISC 12/28/2022ctive insulin degludec (TRESIBA) 100 UNIT/ML pen Inject 18-20 Units subcutaneously every morning.03/10/2024ctive aspirin (ASPIRIN ADULT LOW DOSE) 81 MG EC tablet Take 81 mg by mouth daily.09/03/2024tive clopidogrel (PLAVIX) 75 MG tablet Take 75 mg by mouth daily.5Active metoprolol succinate ER (TOPROL XL) 25 MG 24 hr tablet Take 12.5 mg by mouth daily.09/03/2024tive pantoprazole (PROTONIX) 40 MG EC tablet Indications:Gastroesophageal Reflux DiseaseTake 40 mg by mouth 2 times daily. Active rosuvastatin (CRESTOR) 20 MG tablet Take 1 tablet by mouth at bedtime.5Active venlafaxine (EFFEXOR XR) 75 MG 24 hr capsule Take 1 capsule (75 mg) by mouth in the jiqpcsu78/21/2025Active nitroGLYcerin (NITROSTAT) 0.[address] 1 Tablet (0.4 mg) under the tongue every 5 minutes if needed for Chest pain 1st choice (Hold if SBP less than 90 mmHg). Up to 3 tablets in 15 minutes. 09/03/2024tive levothyroxine (SYNTHROID/LEVOTHROID) 88 MCG tablet Take 1 tablet by mouth daily.11/04/2024tive nicotine (NICODERM CQ) 21 MG/24HR 24 hr patch APPLY 1 PATCH ON DRY, CLEAN, HAIRLESS SKIN ONCE DAILY.Active buprenorphine (SUBUTEX) 2 MG SUBL sublingual tablet Indications:Chronic pain syndromePlace 1 tablet (2 mg) under the tongue daily. 30 tablet 5Active gabapentin (NEURONTIN) 300 MG capsule Indications:Neuropathic painTake 1 capsule (300 mg) by mouth 3 times daily as needed for neuropathic pain. 90 capsule 5Active cyclobenzaprine (FLEXERIL) 5 MG tablet Indications:Muscle SpasmTake 1 tablet (5 mg) by mouth 2 times daily as needed for muscle spasms. 60 tablet 5Active levothyroxine (SYNTHROID/LEVOTHROID) 100 MCG tablet Take 100 mcg by mouth every morning (before breakfast).5Active REGLAN 10 MG tablet Take 1 tablet 4 times a day by oral route before meal(s).5Active tamsulosin (FLOMAX) 0.4 MG capsule Take 0.4 mg by mouth daily.03/19/2025tive nicotine (NICODERM CQ) 14 MG/24HR 24 hr patch APPLY 1 PATCH ON DRY, CLEAN, HAIRLESS SKIN ONCE DAILY. USE AFTER 21MG PATCH. 5Active venlafaxine (EFFEXOR XR) 150 MG 24 hr capsule Indications:Chronic pain syndromeTake 1 capsule (150 mg) by mouth at bedtime. 30 capsule 5Active WEGOVY 0.25 MG/0.5ML pen Inject 0.25 mg subcutaneously once a week.5Active Gtpjgwcytxb-Veqqjphmg-Xwveevmahm (TRELEGY ELLIPTA) 200-62.5-25 MCG/ACT oral inhaler Indications:Moderate persistent asthma without complicationInhale 1 puff into the lungs daily. 180 each 5Active levalbuterol (XOPENEX HFA) 45 MCG/ACT inhaler Indications:Moderate persistent asthma without complicationInhale 2 puffs into the lungs every 6 hours as needed for shortness of breath or wheezing. 45 g 5Active Zxkhbwrposh-Nhpljysij-Ehjmmytpfa (TRELEGY ELLIPTA) 200-62.5-25 MCG/ACT oral inhaler Indications:Moderate persistent asthma without complicationInhale 1 puff into the lungs daily. 180 each Discontinued(Reorder (No AVS)) levalbuterol (XOPENEX HFA) 45 MCG/ACT inhaler Indications:Moderate persistent asthma without complicationInhale 2 puffs into the lungs every 6 hours as needed for shortness of breath or wheezing. 45 g 5106/30/2024Discontinued(Reorder (No AVS)) Active Problems ProblemNoted DateDiagnosed DateDiffuse myofascial pain fbmuvnsn32/18/2022Type 1 diabetes mellitus with moderate nonproliferative diabetic 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,stquvkemo44/01/2021 Overview (03/02/2021): Diagnosis 1993, INsulin started 1996. Type 1 vs Type 2, probably type 1. July 2020: Eye Dr. Visit showing bilateral, nonproliferative, moderate diabetic retinopathy changes. Fxzqquarwjd73/02/8616Kwxazyiyqpnwtf86/05/2020 Overview (03/02/2021): History from printed outside records from [place] brought to 2020 appointment: Was seen by neurologist at [facility]. Neurology in [facility] on 11/20/2019 for numbness. She reportedly had numbness starting in the toes approximate 2015 that gradually moved approximately. She had EMGs May which demonstrated polyneuropathy. She had been on up to 2800 mg of gabapentin but had side effects of confusion and memory difficulty. She is also on duloxetine and was on it for 14 years for mood but was stopped in 2015 and reported significant withdrawal symptoms. She was on nortriptyline at 75 mg twice daily back in October 2019 per neurology notes. She had a head CT scan 2017 for right-sided weakness that was normal she was started on Lyrica by neurologist October 2019. She was continued on nortriptyline and a cervical spine MRI was ordered. Along with labs including sed rate, CRP, TATIANA, B12, TSH, free T4, SPEP, B6 level. MRI of cervical spine was done on 12/10/2019 and demonstrated central disc extrusion causing thecal sac stenosis at C4-5, C5-6, and C6-7. Mild left foraminal stenosis at C6-7. November 2019 neurologist started her on methocarbamol and referred to orthopedic hand surgeon for EMG evidence of right-sided carpal tunnel. At January 2020 follow- up with neurologistshe reportedly had had a spinal injection for back pain with minimal benefit. She was also encouraged to see rheumatology. 01/29/2020 patient was seen by Dr. Natalie Fierro, orthopedics and a cervical epidural steroid injection was ordered. Savella was started on February 17, [address] Lisa Delaney. Gabapentin was stopped by him on November 12, 2019. Grossly ~ Lumbar spine MRI in [place] on 06/12/2018. Impression shows #1 transitional lumbosacral junction with partial lumbarization of S1. Normal 2. Degenerative disc disease with a shallow bulge. No significant central foraminal stenosis. 3. Minimal bulge L4-5 with mild facet degenerative changes bilaterally. ~Cervical spine MRI 12/10/2019: Impression: #1. Central disc extrusion causing thecal sac stenosis at C4-C5, C5-C6, and C6-C7 as described above. 2. Mild foraminal stenosis at C6-7 ~MRI of brain in [place] 02/12/2020: Impression: Normal brain MRI without contrast. September 2020: Dr. Jeffery Brink Neurology consult, EMG ordered, referral to pain clinic. 12/28/[address] Janna [place] of [place] neurology , recommended EMG and pain clinic. Essential khibonndtpef14/14/2020Biliary vjkftxeoqi50/14/2020Disorder of finger 11/27/2019DDD (degenerative disc disease), mohaox5410/28/2019Neuropathy due to secondary gykjojzj23/02/2016Severe skezioe7612/28/2003 Overview (03/02/2021): As of February 2020: managed by psychiatrist from [place], on venlafaxine XR and 4 times daily Xanax. Previously on Ativan. Carpal tunnel eylohnil57/02/2004 Overview (03/02/2021): EMG done in [place], May 2018. Migraine /02/2003GERD (gastroesophageal reflux disease)02/26/2002 Jveorzjj39/02/8203Cdufnlgptayh42/02/2000 Overview (03/02/2021): Had problems in the early with Cymbalta. 2020: Dr. Vasquez had her on both venlafaxine and savella. May 2020: Tapering off the severe due to being on both venlafaxine and savella Moderate major vtexjefocj34/02/1991 Encounters DateTypeDepartmentCare HhfuAatknldivun99/03/2025 1:00 PM CSTOffice Visit [facility] [place] [address] [place] [phone] Hu Gasca MD Moderate persistent asthma without yadgawwcxnhn62/03/6025Djozsz59/03/2025 Telephone [facility] [address] [place] [address] [address] [place] [phone] Siobhan Rodrigez MD Call Back (Reschedule )04/27/2025 4:00 PM CSTLab [facility] [address] [place] [phone] Idiopathic progressive polyneuropathy (Primary Dx)04/27/20252230Tpmoxj24/25/2025 Refill [facility] [place] [address] [place], [place] [address] Siobhan Rodrigez MD Refill Request (venlafaxine (EFFEXOR XR) 150 MG 24 hr capsule)04/17/2025 11:30 AM CSTLab [facility] [address] [place] [phone] Idiopathic progressive qsvgtawunkmhha24/21/8021Fltuvt61/20/6986Qkpzeh62/14/2025 MyC Medical Advice [facility] [address] [place] [phone] Chelsey Singletary GC 04/09/2025 2:30 PM CSTOffice Visit [facility] [place] [address] [phone] Xavier Saldivar MD Autonomic dysfunction (Primary Dx); Kdemumrlwviyzh71/13/6102Sbzlui11/11/2025 10:15 AM CSTOffice Visit [facility] [address] [place] [address] Siobhan Rodrigez MD Chronic pain syndrome (Primary Dx); Fibromyalgia; OSWALDO (generalized anxiety disorder); Neuropathic pain; Encounter for long-term (current) use of high-risk izybarsums24/11/2025Travel 04/05/20258064Gwstjb20/06/9457Lvwlhh03/05/2025Telephone [facility] [address] [place] [phone] Ginette Peters 03/19/2025Telephone [facility] [address] [place] [address] Siobhan Rodrigez MD Call Back (Call back )03/17/2025Telephone [facility] [address] [place] [phone] Александр Madrid [place] 03/16/2025[facility] Medical Advice [facility] [address] [place] [address] Siobhan Rodrigez MD 02/25/2025[facility] Medical Advice [facility] [address] [place] [phone] Elke Lyn from Last 3 Months Immunizations ImmunizationAdministration DatesNext DueInfluenza Vaccine >6 months,quad, PF 06/01/2023 Family History Medical HistoryRelationCommentsAsthmaBrother 1DepressionBrother 1Substance Abuse Brother 1DepressionBrother 2Anxiety DisorderDaughter 1DepressionDaughter 1 HypertensionDaughter 1DepressionDaughter 2HypertensionFatherOther CancerMaternal GrandfatherSubstance AbuseMaternal GrandfatherDepressionMaternal Grandmother Brain TumorMaternal Uncle 1CancerMaternal Uncle 1GlioblastomaBrain TumorMaternal Uncle 2CancerMaternal Uncle 2GlioblastomaDepressionMotherCancerOtherHeart DiseasePaternal GrandfatherCancerPaternal GrandmotherOvarian cancerAsthmaSister HypertensionSisterRelationStatusCommentsBrother 1AliveBrother 2AliveDaughter 1 AliveDaughter 2AliveFatherDeceasedMaternal GrandfatherDeceasedMaternal GrandmotherDeceasedMaternal Uncle 1DeceasedMaternal Uncle 2DeceasedMotherAlive OtherDeceasedPaternal GrandfatherDeceasedPaternal GrandmotherDeceasedPaternal UncleDeceasedSisterAlive Social History Tobacco UseTypesPacks/DayYears UsedDateSmoking Tobacco: Every DayCigarettes0.5 48.6Started: 10/26/2006PipeStarted: 3Passive Smoke Exposure: Current Smokeless Tobacco: Never Tobacco Cessation:Ready to Q uit: Yes Alcohol UseStandard Drinks/WeekCommentsNot Currently0 (1 standard drink = 0.6 oz pure alcohol)RARELYPHQ-2AnswerDate RecordedPHQ-2 Ftulz376dolescent EducationAnswerDate RecordedGetting School Help NeededNot on file02/17/2023 CommentsNoSex and Gender InformationValueDate RecordedSex Assigned at DxmhkTizwof45/02/2021 8:35 AM CDTLegal WcdJrntxa99/26/2021 11:46 AM CDTGender AdunljocSqvjou01/02/2021 8:35 AM CDTSexual SlnsbxutveoMjslsslj65/02/2021 8:35 AM CDT Last Filed Vital Signs Vital SignReadingTime TakenCommentsBlood Kbhyxyws775/7612 1:08 PM NEWSWRITER Vcjln117104/29/2025 1:08 PM EIYLywpkdqgkfl93.4 ??C (97.5 ??F)09/27/2022 7:09 AM CDTRespiratory Swjc318706/30/2024 1:08 PM CSTOxygen Ecwkklqwie06%04/09/2025 2:33 PM CSTInhaled Oxygen Concentration--Zhrdep45.4 kg (186 lb)04/29/2025 1:08 PM NEWSWRITER Hsynil532.2 cm (5' 7)04/29/2025 1:08 PM CSTBody Mass Index29.13106/30/2024 1:08 PM NEWSWRITER Plan of Treatment DateTypeDepartmentCare Team (Latest Contact Info)Fxaqppgckea81/31/2025 2:00 PM CSTAncillary Procedure [facility] [place] [address] [place] [address] 1st [place] [phone] Yarelis Leavitt, PA-C [place] [facility] [address] [place] [address] 07/21/2025 10:15 AM CSTOffice Visit [facility] [place] [address] [place] [address] Drive [address] [place], [place] [address] [place] [address] [place] [address] 09/24/2025 3:30 PM CDTOffice Visit [facility] [place] [address] [place] [address] 3rd [place] [phone] Xavier Saldivar MD [address] [place] [address] [id number] [place], [place] [phone] Health MaintenanceDue DateLast DoneCommentsADVANCE CARE UPUWMCQI23/20/1971ANNUAL REVIEW OF ROUYXD91 1970COPD ACTION PLAN1970CT ECIISGNSDXOD35/20/1971 DEPRESSION ACTION PLAN1970DIABETIC FOOT EXAM1970FIT1970LIPID 1970 3411FYLOJPZSUECH55/20/1971sDNA (Cologuard)1970HEPATITIS B VACCINE (1 of 3 - 19+ 3-dose series)1989PAP1991YEARLY PREVENTIVE VISIT /06/2019EYE EXAM/08/2020, 08/25/2020, 08/23/2020UNG CANCER FJKXZHWXW96/8316GAI11/10/2022, 12/03/2021, 11/03/2021TSH W/FREE T4 YRDVRD29/10/2022, 08/31/2022A1C09/26/2023 06/28/2023OVID-19 VACCINE ( season)/, 05/27/2021, 09/05/2020NICOTINE/TOBACCO CESSATION COUNSELING Q 1 YR/05/2024PHQ-9 /03/2025, 05/02/2024, 08/16/2023MAMMO DKRRXJNZQ29/01/2024, 05/05/2024, 06/27/2022FLEX SIG/TAP/TDAP/TD VACCINE (2 - Td or Tdap)COLONOSCOPY/04/2022, 07/26/2021 COLORECTAL CANCER LIPKEIQKK18/12/2032HEPATITIS C GDFPGGHMGOeenmfymu85/03/2021HIV PPFBKYZDSQswokoyjp42/03/2021NEUMOCOCCAL VACCINE 50+ JCEEPMmabqhljv91/01/2023, 05/25/2022, 02/08/2017ZOSTER YMYKZINHczsrbyik14/25/2025, 04/29/2024, 03/19/2024 WZNSKWANIQMtmbaraim17/12/2025, 12/26/2024, 09/06/2022, Additional history exists INFLUENZA MJEIOWWLvvnovrro57/14/2025, 03/10/2024, 06/01/2023, Additional history existsHPV VACCINE (No Doses Required)CompletedMENINGITIS VACCINEAged OutNo longer eligible based on patient's age to complete this topic Procedures Procedure NamePriorityDate/TimeAssociated DiagnosisCommentsNGS 11 OR MORE GENES Dtjdkgh0904/27/2025 3:55 PM NEWSWRITER Idiopathic progressive polyneuropathy [employer] HOLD FOR MALLUAZIHXWZLQLVOhirxhv30/21/2025 11:30 AM NEWSWRITER Idiopathic progressive polyneuropathy HEMOGLOBIN U1HMkopzhr39/01/2024 11:21 AM NEWSWRITER Type 1 diabetes mellitus with complications (H) IA BRONCHODILATION RESPONSE, PRE/POST JSKDRYqjngtr77/12/2023 8:12 AM CDT Fibromyalgia TSH WITH FREE T4 CKIFAXGfseayo52/06/2023 5:36 PM CDT Muscle weakness (generalized) COMPREHENSIVE METABOLIC JVJWRSnxnpah90/06/2023 5:36 PM CDT Muscle weakness (generalized) CT CHEST/ABDOMEN/PELVIS W JYNCGLRDLcjvkax66/02/2022 12:21 PM NEWSWRITER Muscle weakness (generalized) HIV 1 ANTIBODY WESTERN BLOT HHYFKXIVlsvdxd53/03/2021 12:51 PM CDT Idiopathic progressive polyneuropathy HEPATITIS C OIIZQMHYPueuhqk21/03/2021 12:51 PM CDT Idiopathic progressive polyneuropathy EYE EXAM - [facility] SCAN09/28/2020 12:00 AM CDT from Last 3 Months or Most Recently Relevant to Health Maintenance Results * NGS 11 or More Genes (04/27/2025 3:55 PM NEWSWRITER)Specimen (Source)Anatomical Location / LateralityCollection Method / VolumeCollection TimeReceived Time BloodBLOOD SPECIMEN / UnknownVenipuncture-No Charge / Hjpchue4504/27/2025 3:55 PM CST04/27/2025 3:55 PM NEWSWRITER Narrative Authorizing ProviderResult TypeResult StatusDabrian Galvan MD, LAB CHARGE PERFORMABLESFinal ResultPerforming OrganizationAddressCity/State/ZIP CodePhone Number [facility] ([facility]) [facility] [address], [address] [place], [place] [address] * [facility] Hold For Preauthorization: (04/17/2025 11:30 AM NEWSWRITER) ComponentValueRef RangeTest MethodAnalysis TimePerformed AtPathologist SignatureInterpretationSample processed in lab for DNA for genetic testing. Insurance preauthorization will be initiated. Contact lab with questions, . (Electronically signed by: Lab, Background User April 20, 2025 8:06 AM) 04/20/2025 8:06 AM CST[facility] (LDL)Specimen (Source)Anatomical Location / LateralityCollection Method / VolumeCollection TimeReceived TimeBlood BLOOD SPECIMEN / UnknownVenipuncture / Cgowxvs5304/17/2025 11:30 AM CST04/17/2025 11:30 AM NEWSWRITER Narrative Authorizing ProviderResult TypeResult StatusXavier Saldivar MDLAB - GENOMICSFinal ResultPerforming OrganizationAddressCity/State/ZIP CodePhone Number [facility] ([facility]) [facility] [address] [place], [place] [address] * (ABNORMAL) Hemoglobin A1c (06/28/2023 11:21 AM NEWSWRITER)ComponentValueRef RangeTest MethodAnalysis TimePerformed AtPathologist SignatureHemoglobin A1C6.0(H)<5.7 % 06/28/2023 11:47 AM [facility] LABORATORYComment: Normal <5.7% Prediabetes 5.7-6.4% ?? Diabetes 6.5% or higher Note: Adopted from ADA consensus guidelines. Specimen (Source)Anatomical Location / LateralityCollection Method / Volume Collection TimeReceived TimeBloodSTRUCTURE OF RIGHT UPPER LIMB / Unknown Venipuncture / Icruiph8206/28/2023 11:21 AM CST06/28/2023 11:21 AM NEWSWRITER Narrative Authorizing ProviderResult TypeResult StatusSiobhan Rodrigez MDLAB - BLOOD ORDERABLESFinal ResultPerforming OrganizationAddressCity/State/ZIP CodePhone Number [facility] [address] [facility] (1st floor, no room number) [place] [address], [facility] [phone] * General PFT Lab (Please always keep checked) (09/06/2022 7:29 AM CDT)Component ValueRef RangeTest MethodAnalysis TimePerformed AtPathologist Signature FVC-Pred3.47LBREEZE PFTFVC-Pre2.58LBREEZE PFTFVC-%Pred-Pre74%[place]ZE PFT FEV1-Pre2.11LBREEZE PFTFEV1-%Pred-Pre75%BREEZE CMQXFQ8MKK-Dkmr02%[facility]REEZE PFT JNA6DFR-Tsd52%[place]REEZE PFTFEFMax-Pred7.14L/secBREEZE PFTFEFMax-Pre5.48L/sec BREEZE PFTFEFMax-%Pred-Pre76%BREEZE LWKNQX1379-Chyt1.67L/secBREEZE PFT COZ4228-Bby7.18L/secBREEZE RVTDXL2918-%Pred-Pre81%[facility]REEZE PHYDPL8857-Vido4.76 L/secBREEZE FJKFHA5926-%Pred-Lsqk389%BREEZE PFTExpTime-Pre7.00secBREEZE PFT FIFMax-Pre4.02L/secBREEZE PFTMEP-Erz71fuH1OKZMYVU JYSGYE-Lbs-23woT2MIPJRHX PFT VC-Pred3.82LBREEZE PFTVC-Pre2.70LBREEZE PFTVC-%Pred-Pre70%BREEZE PFTIC-Pred 2.67LBREEZE PFTIC-Pre1.65LBREEZE PFTIC-%Pred-Pre61%BREEZE PFTERV-Pred1.15L BREEZE PFTERV-Pre1.05LBREEZE PFTERV-%Pred-Pre91%BREEZE PKDWSS3DBG2-Zctz35% BREEZE UXABMT9ODV2-Qhh12%BREEZE PFTFRCPleth-Pred2.86LBREEZE PFTFRCPleth-Pre 2.76LBREEZE PFTFRCPleth-%Pred-Pre96%BREEZE PFTRVPleth-Pred1.91LBREEZE PFT RVPleth-Pre1.71LBREEZE PFTRVPleth-%Pred-Pre89%BREEZE PFTTLCPleth-Pred5.44L BREEZE PFTTLCPleth-Pre4.41LBREEZE PFTTLCPleth-%Pred-Pre81%BREEZE PFT DLCOunc-Pred23.07ml/min/mmHgBREEZE PFTDLCOunc-Pre13.40ml/min/mmHgBREEZE PFT DLCOunc-%Pred-Pre58%BREEZE PFTVA-Pre3.74LBREEZE PFTVA-%Pred-Pre68%BREEZE PFT GPG7WVV-Kvas36%BREEZE FZRZKY0HPM-Fap93%BREEZE PFTAnatomical RegionLaterality ModalityOtherSpecimen (Source)Anatomical Location / LateralityCollection Method / VolumeCollection TimeReceived Time09/06/2022 7:29 AM CDT Narrative 09/07/2022 7:17 PM CDT The FEV1 and FVC are reduced, but the FEV1/FVC ratio is normal. The inspiratory flow rates are within normal limits. Lung volumes are reduced. Following administration of bronchodilators, there is no significant response. The diffusing capacity is reduced. ??However, the diffusing capacity was not corrected for the patient's hemoglobin. IMPRESSION: Mild restriction. There is no significant bronchodilator response. Moderate diffusion defect. The diffusing capacity was not corrected for the patient's hemoglobin. MIP (maximal inspiratory pressure) is normal, and MEP (maximal expiratory pressure) is reduced. ?This interpretation has been electronically signed: ??NAVID JONES 09/07/2022 ??07:00:46 PM? Authorizing ProviderResult TypeResult StatusMichael Felice Gasca [facility] ORDERABLESFinal Result * (ABNORMAL) TSH with free T4 reflex (08/31/2022 5:36 PM CDT)ComponentValueRef RangeTest MethodAnalysis TimePerformed AtPathologist SignatureTSH6.11(H)0.30 - 4.20 uIU/mL08/31/2022 6:36 PM CDTUCSC LABORATORY - CORE LABSpecimen (Source) Anatomical Location / LateralityCollection Method / VolumeCollection Time Received TimeBloodSTRUCTURE OF RIGHT UPPER LIMB / UnknownVenipuncture / Huiynaa5108/31/2022 5:36 PM CDT08/31/2022 5:37 PM CDT Narrative Authorizing ProviderResult TypeResult StatusDavid Walk MDLAB - BLOOD ORDERABLES Final ResultPerforming OrganizationAddressCity/State/ZIP CodePhone Number [facility] [address] 1st [place] [address] * (ABNORMAL) Comprehensive metabolic panel (08/31/2022 5:36 PM CDT)Component ValueRef RangeTest MethodAnalysis TimePerformed AtPathologist SignatureSodium 948401 - 145 mmol/L08/31/2022 6:12 PM CDTUCSC LAB[facility]AT[facility] - CORE LABPotassium 4.43.4 - 5.3 mmol/L08/31/2022 6:12 PM CDTUCSC LABORAT[facility] - CORE DXWMbimkeil12 98 - 107 mmol/L08/31/2022 6:12 PM CDTUCSC [facility] - CORE LABCarbon Dioxide (CO2)31(H)22 - 29 mmol/L08/31/2022 6:12 PM CDTUCSC LABORATORY - CORE LABAnion Gap87 - 15 mmol/L08/31/2022 6:12 PM CDTUCSC LAB[facility]ATORY - CORE LABUrea Nitrogen 18.26.0 - 20.0 mg/dL08/31/2022 6:12 PM CDTUCSC LAB[facility] - CORE LABCreatinine 0.850.51 - 0.95 mg/dL08/31/2022 6:12 PM CDTUCSC [facility] - CORE LABCalcium 9.48.6 - 10.0 mg/dL08/31/2022 6:12 PM CDTUCSC [facility] FWQXxhouuz504 (H)70 - 99 mg/dL08/31/2022 6:12 PM CDTUCSC LAB[facility] - CORE LABAlkaline Ihvmrtjmkzq690(H)35 - 104 U/L08/31/2022 6:12 PM CDTUC[facility] LAB AST36(H)10 - 35 U/L08/31/2022 6:12 PM CDTUCSC [facility] FRNMRE7133 - 35 U/L08/31/2022 6:12 PM CDTUCSC [facility] - C[facility] LABProtein Total7.36.4 - 8.3 g/dL08/31/2022 6:12 PM CDTUCSC [facility] - CORE LABAlbumin4.13.5 - 5.2 g/dL08/31/2022 6:12 PM CDTUCSC [facility] - CORE LABBilirubin Total<0.2<=1.2 mg/dL08/31/2022 6:12 PM CDTUCSC LABORATORY - CORE LABGFR Smptbbby19>60 mL/min/1.51r91208/31/2022 6:12 PM CDTUCSC LAB[facility]ATORY - CORE LABComment:eGFR calculated using 2020 CKD-EPI equation.Specimen (Source)Anatomical Location / LateralityCollection Method / VolumeCollection TimeReceived TimeBloodSTRUCTURE OF RIGHT UPPER LIMB / UnknownVenipuncture / Hgzjqbh6708/31/2022 5:36 PM CDT 08/31/2022 5:37 PM CDT Narrative Authorizing ProviderResult TypeResult StatusDavid Walk MDLAB - BLOOD ORDERABLES Final ResultPerforming OrganizationAddressCity/State/ZIP CodePhone Number [facility] - [facility] [address] 1st [place] [address] * CT Chest/Abdomen/Pelvis w Contrast (04/28/2022 12:21 PM NEWSWRITER)Anatomical Region LateralityModalityAbdomen/Pelvis, Chest, SUBRAD CT BODY, UMP CT CHEST, UMP CT ABDOMEN PELVIS, RAD CTComputed TomographySpecimen (Source)Anatomical Location / LateralityCollection Method / VolumeCollection TimeReceived Time Impressions 04/28/2022 4:22 PM NEWSWRITER IMPRESSION: 1. ??No acute process or occult malignancy demonstrated. LISA ARECHIGA MD Narrative 04/28/2022 4:[address] CHEST/ABDOMEN/PELVIS WITH CONTRAST 04/28/2022 12:21 PM CLINICAL HISTORY: Muscle weakness (generalized). TECHNIQUE: CT scan of the chest, abdomen, and pelvis was performed following injection of IV contrast. Multiplanar reformats were obtained. Dose reduction techniques were used. CONTRAST: 63 mL Isovue 370. COMPARISON: 11/03/2021 FINDINGS: LUNGS AND PLEURA: Moderate bronchiectasis with a few areas of mucous plugging. No infiltrates. No effusions. MEDIASTINUM/AXILLAE: No lymphadenopathy. No thoracic aortic aneurysms. CORONARY ARTERY CALCIFICATIONS: None. HEPATOBILIARY: No significant mass or bile duct dilatation. No calcified gallstones. Cholecystectomy. PANCREAS: No significant mass, duct dilatation, or inflammatory change. SPLEEN: Normal size. ADRENAL GLANDS: No significant nodules. KIDNEYS/BLADDER: No significant mass, stones, or hydronephrosis. BOWEL: No obstruction or inflammatory change. PELVIC ORGANS: No pelvic masses. ADDITIONAL FINDINGS: No ascites. There are mild atherosclerotic changes of the visualized aorta and its branches. There is no evidence of aortic dissection or aneurysm. MUSCULOSKELETAL: No frankly destructive bony lesions. Procedure Note Lisa Arechiga MD - 04/28/2022 CT CHEST/ABDOMEN/PELVIS WITH CONTRAST 04/28/2022 12:21 PM CLINICAL HISTORY: Muscle weakness (generalized). TECHNIQUE: CT scan of the chest, abdomen, and pelvis was performed following injection of IV contrast. Multiplanar reformats were obtained. Dose reduction techniques were used. CONTRAST: 63 mL Isovue 370. COMPARISON: 11/03/2021 FINDINGS: LUNGS AND PLEURA: Moderate bronchiectasis with a few areas of mucous plugging. No infiltrates. No effusions. MEDIASTINUM/AXILLAE: No lymphadenopathy. No thoracic aortic aneurysms. CORONARY ARTERY CALCIFICATIONS: None. HEPATOBILIARY: No significant mass or bile duct dilatation. No calcified gallstones. Cholecystectomy. PANCREAS: No significant mass, duct dilatation, or inflammatory change. SPLEEN: Normal size. ADRENAL GLANDS: No significant nodules. KIDNEYS/BLADDER: No significant mass, stones, or hydronephrosis. BOWEL: No obstruction or inflammatory change. PELVIC ORGANS: No pelvic masses. ADDITIONAL FINDINGS: No ascites. There are mild atherosclerotic changes of the visualized aorta and its branches. There is no evidence of aortic dissection or aneurysm. MUSCULOSKELETAL: No frankly destructive bony lesions. IMPRESSION: 1. No acute process or occult malignancy demonstrated. LISA ARECHIGA MD Authorizing ProviderResult TypeResult StatusDavid Walk [facility] ORDERABLESFinal Result * HIV 1 antibody Western blot confirm (12/28/2020 12:51 PM CDT)ComponentValueRef RangeTest MethodAnalysis TimePerformed AtPathologist SignatureHIV 1 [place] Western BlisDlczfvnfSzcozhzp20/05/2021 2:46 PM CDTARUP LABSComment: INTERPRETIVE INFORMATION: HIV 1 Ab, Confirm Western Blot This assay should not be used for blood donor screening, associated re-entry protocols, or for screening Human Cells, Tissues and Cellular and Tissue-Based Products (HCT/P). Specimen (Source)Anatomical Location / LateralityCollection Method / Volume Collection TimeReceived TimeBloodBLOOD SPECIMEN / UnknownVenipuncture / Unknown 12/28/2020 12:51 PM CDT12/28/2020 1:09 PM CDT Narrative ADELAIDEJUAQUIN NAVIN - 12/30/2020 2:46 PM CDT HIV-1 Western Blot Pattern (0 = neg; * = +/-; 1 = weak pos; 2 = strong pos; ?? X=Non-specific staining obscuring bands in that region) p18 ?? p24 ?? p31 ?? p40 ?? gp41 ??p51/55 ?? p65 ?? gp120 ?? gp160 ??0 ? 0 ? 0 ? 0 ? 0 ? 0 ?0 ?0 ? 0 Interpretation: ??NEGATIVE for HIV-1 antibodies. No antibodies were detected by Western blot. Very early HIV infection prior to seroconversion cannot be excluded. Further testing is recommended if an initially reactive screening result was obtained using a combined antigen/antibody HIV assay, in which case the Western blot is not sufficient for confirmation since it detects only antibodies. ??An HIV RNA assay is recommended. Performed by [employer], [address] [place] [address] [id number] [email or web address], Devi Guillaume MD, Lab. Director Authorizing ProviderResult TypeResult StatusDavid Walk [facility] - BLOOD ORDERABLES Final ResultPerforming OrganizationAddressCity/State/ZIP CodePhone Number [facility] [address] [place] [address], [facility] [phone] * Hepatitis C antibody (12/28/2020 12:51 PM CDT)ComponentValueRef RangeTest MethodAnalysis TimePerformed AtPathologist SignatureHepatitis C Antibody LejlkfnqbtmSngewrhirgd38/04/2021 10:17 AM CDTUU [facility] CORESpecimen (Source)Anatomical Location / LateralityCollection Method / VolumeCollection TimeReceived TimeBloodBLOOD SPECIMEN / UnknownVenipuncture / Osltira1212/28/2020 12:51 PM CDT12/28/2020 1:11 PM CDT Narrative [facility] - 12/29/2020 10:17 AM CDT Assay performance characteristics have not been established for newborns, infants, and children. Authorizing ProviderResult TypeResult StatusDavid Walk [facility] - BLOOD ORDERABLES Final ResultPerforming OrganizationAddressCity/State/ZIP CodePhone Number [facility] Specialty Core Lab [address] [facility], [address] [place] [phone], [facility] [phone] * EYE EXAM - HIM SCAN (09/28/2020 12:00 AM CDT)ComponentValueRef RangeTest MethodAnalysis TimePerformed AtPathologist SignatureRETINOPATHYSEE SCANNED DOCUMENTSpecimen (Source)Anatomical Location / LateralityCollection Method / VolumeCollection TimeReceived Time09/28/2020 Tanya Smart - 09/28/2020 12:00 AM CDT DIABETIC EYE EXAM [facility] eye exam him scan Authorizing ProviderResult TypeResult StatusProvider OutsideOTHEREdited Result - Final from Last 3 Months or Most Recently Relevant to Health Maintenance Insurance * Guarantor: Eileen Hall TypeRelation to PatientDate of PhoneBilling [id number]/20/1971 [address] [place] [address] MemberSubscriberPlan / Payer (Effective 2020-Present)Name:EILEEN HALL Relation to Subscriber:SpouseName:Hu Hall Date of :1966 (Home) Address: [address] [place] [address] Payer ID:[id number] (NAIC) Type:Indemnity Address: [address] Care Teams Team MemberRelationshipSpecialtyStart DateEnd Clay Hoyt MD PCP - [facility]Sp[facility] Medicine10/22/20 Xavier Saldivar MD [address] [place], [place] [id number] [place] [address] MDNeurology10/22/20 Xavier Saldivar MD [address] [place], [place] [address] [place], [place] [address] Assigned Neuroscience Provider01/02/[address] [place] [address] [phone] Registered DietitianDietitian, Fmfaypgsld68/23/21 [place] [address] [place], [place] [phone] Assigned Pain Medication Provider12/02/22 Hu Gasca MD [address] [place] [address] [address] [place], [place] [phone] MDCritical Care08/02/23 Comfort Cook, PhD LP [address] [place] [address] [phone] PsychologistNeuropsychology08/17/23 Lukas Mosher MD [address] [place] [address] [address] [place], [place] [phone] Neurology08/17/23 Xavier Marte MD [address] [place], [place] [phone] Assigned Heart and Vascular Provider12/18/23 Hu Gasca MD [address] [facility] [address] [place], [place] [phone] Assigned Pulmonology Asojbvdf22/23/24 Larry Rosas, PhD LP [address] [place] [address] Assigned Behavioral Health Tdfqpkpz98/23/24 Krystal Rico [facility] [address] [place] [address] PharmacistPharmacist09/25/24 Krystal Rico [facility] [address] [place], [place] [phone] Assigned [place] Pharmacist10/17/24
--- OUTSIDE RECORDS SUMMARY | 2025-05-22 16:12 | XMS_ITS | Clinical Summary ---
Author Organization [facility] Address [address] [place] [address] Care Team Providers Care Ob Gyn Name Role Phone Owen Suaerz MD Unavailable [phone] Clay Hoyt MD Primary Care Provider [phone] Tata Garcia RN Unavailable [phone] Allergies Active AllergyReactionsCriticalityNoted DateCommentsCiprofloxacinNausea And Frnptoqo72/02/2020GlutenConstipation,Diarrhea,GI Upset,Intolerance-Can't Take, Nausea Only,Stomach Upset05/23/2021ulfa (Sulfonamide Antibiotics)Nausea And Fzbkgcpj48/02/2020TrimethoprimOther - Describe In Comment Field01/31/2024 trimethoprim Medications MedicationSigDispense QuantityRefillsLast FilledStart DateEnd DateStatus cyclobenzaprine (FLEXERIL) 5 mg tablet Take 5 mg by mouth 3 times daily if needed.04/26/2022ctive Dexcom G7 Director Of Transportation for continuous blood glucose monitor (CGM) Indications:Type 1 diabetes mellitus with complication (HC)To be used to read blood sugars follow refining still operator directions. 1 Each 3Active pen needle 32 gauge x 5/32 (disposable insulin pen needle) Indications:Type 1 diabetes mellitus with complication (HC)Remove the 2 covers on the insulin pen needle before administering insulin dose. use four times anca y 400 Each 4Active levalbuterol 45 mcg/actuation inhaler Inhale 2 Puffs by mouth every 6 hours if needed for Shortness Of Breath or Wheezing.02/25/2025Active buprenorphine HCL [address] 1 mg under the tongue two times daily.Active fluticasone ywe-msvfjqlbqhlh-ccilbitvap (Trelegy Ellipta) 200-62.5-25 mcg inhaler Inhale 1 Puff by mouth once daily if needed.Active pantoprazole 40 mg delayed-release tablet Take 40 mg by mouth two times daily before meals.Active clopidogreL 75 mg tablet Indications:NSTEMI (non-ST elevated myocardial infarction) (HC)Take 1 Tablet (75 mg) by mouth once daily in the morning. 90 Tablet 12:03 PM T5Active aspirin chewable 81 mg chewable tablet Indications:NSTEMI (non-ST elevated myocardial infarction) (HC)Chew 1 Tablet (81 mg) by mouth once daily.09/04/2024tive nitroglycerin 0.4 mg sublingual tablet Indications:NSTEMI (non-ST elevated myocardial infarction) (HC)Place 1 Tablet (0.4 mg) under the tongue every 5 minutes if needed for Chest pain 1st choice (Hold if SBP less than 90 mmHg). Up to 3 tablets in 15 minutes. 30 Tablet 12:03 PM 09/03/2024tive metoprolol succinate (Toprol XL) 25 mg Sustained-Release tablet Indications:NSTEMI (non-ST elevated myocardial infarction) (HC)Takeone-half Tablet (12.5 mg) by mouth once daily. 90 Tablet 12:03 PM T09/03/2024tive rosuvastatin 20 mg tablet Indications:NSTEMI (non-ST elevated myocardial infarction) (HC)Take 1 Tablet (20 mg) by mouth at bedtime. 90 Tablet 12:03 PM [facility]09/03/2024tive gabapentin 300 mg capsule Take 1 Capsule (300 mg) by mouth three times daily.09/08/2024tive [employer] G7 Sensor for continuous blood glucose monitor (CGM) Indications:Type 1 diabetes mellitus with complication (HC)To be used to read blood sugars, follow refining still operator directions. 9 Each 5Active ondansetron (ZOFRAN) 4 mg tablet Take 4 mg by mouth every 8 hours if needed.3Active metoclopramide HCl (REGLAN) 10 mg tablet Indications:GastroparesisTake 1 Tablet (10 mg) by mouth four times daily before meals and at bedtime. 120 Tablet 5Active levothyroxine (SYNTHROID) 100 mcg tablet Indications:Trang's thyroiditisTake 1 Tablet (100 mcg) by mouth once daily. 90 Tablet 5Active dicyclomine (BENTYL) 10 mg capsule TAKE 1 CAPSULE BY ORAL ROUTE UP TO 3 TIMES EVERY DAY [id number] nicotine 14 mg/24 hr (NICODERM; HABITROL) 14 mg/24 hr patch Indications:Tobacco useApply 1 Patch on dry, clean, hairless skin once daily. Use after 21mg patch. 30 Patch 5Active ALPRAZolam (XANAX) 1 mg tablet Take 1 mg by mouth 5 times daily if needed for Anxiety.Active traZODone (DESYREL) 150 mg tablet Take 150-300 mg by mouth at bedtime if needed for Sleep.Active tamsulosin 0.4 mg capsule Indications:Urinary retentionTake 1 Capsule (0.4 mg) by mouth once daily after a meal. 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 TDD 33 units 30 mL 5Active semaglutide (Wegovy) 0.25 mg/0.5 mL subcutaneous pen Indications:Class 1 obesity due to excess calories with serious comorbidity and body mass index (BMI) of 30.0 to 30.9 in adultInject 0.25 mg subcutaneous once weekly. 2 mL 5Active insulin degludec (U-100) (Tresiba FlexTouch U-100) 100 unit/mL (3 mL) pen Indications:Type 1 diabetes mellitus with moderate nonproliferative diabetic 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,bilateral (HC)Inject 30 units subcutaneous once daily in the evening. 30 mL 5Active semaglutide (weight loss) (Wegovy) 0.5 mg/0.5 mL subcutaneous pen Indications:Type 1 diabetes mellitus with moderate nonproliferative diabetic 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,bilateral (HC)Inject 0.5 mg subcutaneous once weekly. 4 Pen 5Active Active Problems ProblemNoted DateDiagnosed DateStenosis of right carotid bjwlch625Acute on chronic epigastric pain12/17/2024Marijuana mupovz4012/17/2024onstipation 12/17/2024hest pain, rule out acute myocardial xvixdfpdem92/07/2025LUQ abdominal pain09/01/2024KI (acute kidney injury)09/01/2024 Overview (09/22/2024): August 2024: repeat Creatinine 1.59 and GFR 38, referring to nephrology. Acute htlrwzuvxexyl77/07/2025Hyperglycemia due to type 1 diabetes mellitus 09/01/2024igarette nicotine dependence without qtgfakaarihd11/07/2025hronic pain gicfmnyd67/07/2025NSTEMI (non-ST elevated myocardial infarction)09/01/2024 Overview (09/06/2024): August 2024: stent to Circumflex. Nausea & ywxacqvy65/12/1115Gxkvflaqqdmyp31/12/2024utonomic pzuuqcz6912/08/2023 Overview (12/08/2023): 2023: seeing neurologist. Type 1 diabetes mellitus with autonomic pvhhjiveecz59/19/2023 Overview (05/15/2023): See Cardiology consult at [facility] April 2023. Also Supine hypertension. Jobanhlxktvr66/19/2023 Overview (05/15/2023): April 2023: Substitute Teacher Dr. Marte added Losartan 25mg at bedtime and also 25 mg in morning ifblood pressure elevated. Diagnosis of supine Hypertension and Autonomic neuropathy. COVID-19 virus rlogqmsms25/29/2023 Overview (04/25/2023): Mar 2023: treated with paxlovid, positive test from Hospitalization. Jzoavqrg06/27/2023igarette nicotine dependence without rbvamyernxbk88/27/2023 Cigarette nicotine dependence with nicotine-induced pnetrioi13/27/2023 Hypertensive /26/2023Elevated troponin, likely demand ischemia in the setting of hypertensive doilvvfgw17/26/2023cute sxzfhqkvpajx00/26/2023 Hyperglycemia due to type 1 diabetes rdmkynoz14/26/9988Wmuhlrpbgois49/26/2023 Diabetic polyneuropathy associated with type 1 diabetes xidggnvq28/29/2022 Nzuagqqn79/29/2022eliac kqceegr1006/15/2021 Overview (06/15/2021): April 2021: duodenal biopsy: Duodenal mucosa with partial villous atrophy, mildly increased intraepithelial lymphocytes and laminal propria lymphoplasmacytes, consistent with Modified Victor-Oberhuber celiac sprue type 3a in the appropriate clinical context Txvtzixfb77/21/2021 Overview (04/17/2021): Feb 2021: saw Cardiology, recommended hydration, compression stocking, quit smoking. SOB (shortness of breath)09/01/2020 Overview (09/01/2020): August 2020: Holter monitor normal. Type 1 diabetes mellitus with moderate nonproliferative diabetic 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,yaozmahkt92/01/2021 Overview (04/17/2021): Diagnosis 1993, INsulin started 1996. Type 1 vs Type 2, probably type 1. July 2020: Eye DrReyes Visit showing bilateral, nonproliferative, moderate diabetic retinopathy changes. Ankkqgcohxxscd88/05/2020 Overview (05/29/2022): History from printed outside records from [place] brought to 2019 appointment: Was seen by neurologist at [facility]. Neurology in [facility] on 11/20/2019 for numbness. She reportedly had numbness starting in the toes approximate 2015 that gradually moved approximately. She had EMGs May which demonstrated polyneuropathy. She had been on up to 2800 mg of gabapentin but had side effects of confusion and memory difficulty. She is also on duloxetine and was on it for 14 years for mood but was stopped in 2016 and reported significant withdrawal symptoms. She was [...] started on February 17, [address] Rigo Delaney. Gabapentin was stopped by him on November 12, 2019. Grossly ~ Mar 2022: Was seen at [facility] Neuromuscular specialist Dr. Saldivar. ~ Lumbar spine MRI in [place] on 06/12/2018. Impression shows #1 transitional lumbosacral [...] stenosis at C6-7 ~MRI of brain in [place] 02/12/2020: Impression: Normal brain MRI without contrast. September 2020: Dr. Jeffery Brink Neurology consult, EMG ordered, referral to pain clinic. 12/28/[address] Saldivar [facility] neurology , recommended EMG and pain clinic. 02/23/2021: Dr. Saldivar EMG at [facility] completed: Moderate sensory and sensorimotor axonal polyneuropathy, most consistent with a length dependent pattern. 2. Moderate right median neuropathy at the wrist. 3. Mild right ulnar neuropathy at the elbow. 4. Possible disorder of neuromuscular transmission, more likely at a post ganglionic location. 5. No evidence of myopathy. 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 05/24/2022: Right upper extremity EMG at [facility]. Okjbkwestxxz46/05/2020 Overview (04/28/2022): Had problems in the early 1999's with Cymbalta. 2020: Dr. Vasquez had her on both venlafaxine and savella. May 2020: Tapering off the severe due to being on both venlafaxine and savella ~ Mar 2022: Was seen at [facility] Neuromuscular specialist Dr. Saldivar. Thought to not have neuromuscular specific diagnosis Severe anxiety Overview (03/29/2020): As of February 2020: managed by psychiatrist from [place], on venlafaxine XR and 4 times daily Xanax. Previously on Ativan. Major depression Resolved Problems ProblemNoted DateDiagnosed DateResolved DateDiabetic ketoacidosis without coma associated with type 1 diabetes tbhekftz91/Type 1 diabetes Overview (05/31/2020): Diagnosis 1993, INsulin started 1996. Type 1 vs Type 2, probably type 1. Carpal tunnel /29/2022 Overview (04/01/2020): EMG done in [place], May 2018. Encounters DateTypeDepartmentCare TlnkMhbhacmlnen17/26/2025 10:00 AM CSTOffice Visit [facility] [address] [place] [address] Akhil Flower MD CV Vascular Est (1 month Follow up: s/p right transcarotid revascularization with stenting and angioplasty 03/18/25.)04/22/2025 8:27 AM SECURITY REP - 04/22/2025 11:59 PM CSTHospital Encounter [facility] [address] [place] [address] Akhil Flower MD Moore, Brian H Carotid stenosis, right04/21/2025 1:30 PM CSTPatient Outreach [facility] [address] [place] [address] Tata Garcia, aerial hurricane hunter (Prepump)04/21/2025 1:10 PM CSTOrders Only [facility] [address] [place] [address] <No scans attached>04/21/20252538Sbcdny91/20/3338Fubziq58/14/2025 12:35 PM CSTOffice Visit [facility] [address] [place] [address] Owen Suarez MD Diabetes (5 month follow up); Immunization/Fhiizmzkk13/14/2025Telephone [facility] [address] [place] [address] Owen Suarez MD Prior Authorization (semaglutide (Wegovy) 0.25 mg/0.5 mL subcutaneous pen APPROVED April 10, 2025 to November 06, 2025)04/10/2025Refill [facility] [address] [place] [address] Owen Suarez MD Refill Request (Tresiba )04/10/20252042Fqffdg58/11/9727Jnslle09/10/2025Orders Only [facility] Scanner 1 scan: (1-Ord) [place] [facility], CYSTOSCOPY , Orders Only [facility] Scanner 1 scan: (1-Ord) [place] [facility] CYSTOSCOPY , Refill [facility] [address] [place] [address] Owen Suarez MD Refill Request (Novolog Flexpen U-100 Insulin)03/24/2025 3:05 PM CDTOffice Visit [facility] [address] [place] [address] Clay Hoyt MD Hospital F/U (ANW discharged on 03/19/2025/Surgical correction - Carotid Artery Stenosis /Not feeling well today - nauseated, headaches)03/24/2025Orders Only [facility] Scanner 1 scan: (1-Ord) [place] [facility], URODYNAMIC STUDIES, 51Orders Only [facility] Scanner 1 scan: (1-Ord) [place] [facility], URODYNAMIC STUDIES, Travel 03/21/20259964Cxixti10/24/2025Patient Outreach [facility] [address] [place] [address] Lizbet Stoll, ANNIE Primary RN Care Management; Hospital F/U (Lace=46)03/19/2025Orders Only [facility] [address] [place] [address] Clay Hoyt MD 1 scan: (1-Ord) NFLD-EKG-03/16/2510 2:[address] [facility] [address] [place] [address] Inder Guerrero CRNA [place], Kelsey D, MILIEU THERAPIST Student 03/18/2025 12:37 PM CDT - 03/18/2025 3:[address] [address] [place] [address] Akhil Flower MD RIGHT TRANSCAROTID ARTERY REVASCULARIZATION; ULTRASOUND GUIDED LEFT COMMON FEMORAL VEIN SHEATH KSUDFIESC50/22/2025 10:54 AM CDT - 03/19/2025 1:47 PM CDT Hospital Encounter 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,bilateral (HC) (Primary Dx); Post-op pain; Urinary retention Discharge Disposition: Home Self Care03/18/20251752Cicfde07/20/2025 1:00 PM CDT Ancillary Procedure [facility] [address] [place] [address] 03/16/2025 11:10 AM CDTOffice Visit [facility] [address] [place] [address] Clay Hoyt MD Preoperative Exam (03/18 Right Revasculatization TCAR, Brook Meredith) 03/16/20255878Zlulpl87/15/4506Umpfnb04/29/2025Telephone [facility] [address] [place] [address] Akhil Flower MD Surgery Scheduledfrom Last 3 Months Immunizations ImmunizationAdministration DatesNext DueCOVID-19 vaccine (Raji-J&J) PF, MDV 09/05/2020OVID-19 vaccine (Moderna 50mcg/0.5mL) 12YO+ BIVALENT PF, MDV 05/25/2022INFLUENZA, IIV3 PF (AGE >= 6 MO)04/10/2025,03/10/2024Influenza Virus, Rwzklcdleqq80/14/2017Influenza, YBG69806/01/2023,02/21/2022,04/12/2021,02/10/2020 Pneumococcal Conj 20-valent (Prevnar 20)05/25/2022neumococcal conj 13-Valent (Prevnar 13)02/08/2017Pneumococcal, Tqawnpjfysu99/01/2964Triy72/14/2017Zoster (Shingrix-RZV, recombinant)04/29/2024,03/19/2024Zoster (Zostavax-ZVL, live) 08/19/2024 Family History Medical HistoryRelationNameCommentsAlcoholismFatherAlcoholismMaternal GrandmotherDepressionMaternal GrandmotherCrohn's diseaseMaternal UncleBipolar disorderMotherPersonality disorderMotherHeart DiseasePaternal Grandfather Cancer-ovarianPaternal GrandmotherHypertensionSisterCancer-breastNo Family HistoryRelationNameStatusCommentsFatherMaternal GrandmotherMaternal UncleMother Paternal GrandfatherPaternal GrandmotherSister Social History Tobacco UseTypesPacks/DayYears UsedDateSmoking Tobacco: Some DaysCigarettes0.3 20.3Started: 02/18/2005Smokeless Tobacco: Never Tobacco Cessation:Ready to Q uit: Not Asked; Counseling Given: Not Answered Comments:0.25 ppd; updated 04/22/2025 Alcohol UseStandard Drinks/WeekCommentsYes0 (1 standard drink = 0.6 oz pure alcohol)sociallyPHQ-2AnswerDate RecordedPHQ-2 TOTAL FHLGS71209/18/2024Social ConnectionsAnswerDate RecordedDo you often feel lonely or isolated from those around you?lcohol UseAnswerDate RecordedHow often do you have a drink containing alcohol?How many drinks containing alcohol do you have on a typical day when you are drinking?How often do you have five or more drinks on one occasion?Financial Resource StrainAnswer Date RecordedDifficulty of Paying Living Hnrxhbpz735/27/2022Difficulty of Paying Living ExpensesNot on file05/23/2022Food InsecurityAnswerDate RecordedDo you worry your food will run out before you are able to buy more? Transportation NeedsAnswerDate RecordedDoes lack of transportation keep you from medical appointments?Does lack of transportation keep you from work, meetings or getting things that you need?Housing StabilityAnswerDate RecordedWhat is your housing situation today?Interpersonal Safety AnswerDate RecordedAre you being hit, kicked, pushed or yelled at (see row info)?No01/31/2025Interpersonal Safety Abuse 12 - 18Not on file01/31/2025 Interpersonal Safety Ambulatory VulnerabilityNot on file01/31/2025Utilities AnswerDate RecordedDo you have trouble paying for utilities (for example, heat, electricity, water, phone)?CommentsNoSex and Gender InformationValueDate RecordedSex Assigned at NxxkrYwwiwg77/05/2021 10:19 AM SECURITY REP Legal RrbWqzmck57/14/2020 9:55 AM CDTGender KjtvkgmfExmyhs02/05/2021 10:19 AM CSTSexual IshaoyomksmHnfqitet93/05/2021 10:19 AM SECURITY REP Last Filed Vital Signs Vital SignReadingTime TakenCommentsBlood Qnlrxefx993/5404/22/2025 9:48 AM SECURITY REP Dhzjl048204/22/2025 9:48 AM HOJLrskqicaoqi93.9 ??C (98.5 ??F)03/24/2025 3:07 PM CDTRespiratory Sfhi920606/22/2024 9:48 AM CSTOxygen Rrvyfamzlv39%04/22/2025 9:48 AM CSTInhaled Oxygen Concentration--Sovbdl17.8 kg (198 lb)04/10/2025 12:26 PM AQDHsoxbn834.5 cm (5' 7.91)04/10/2025 12:26 PM CSTBody Mass Index30.18 04/10/2025 12:26 PM SECURITY REP Plan of Treatment DateTypeDepartmentCare Team (Latest Contact Info)Fttcmwayuih19/09/2026 11:30 AM CSTOffice Visit [facility] [address] [facility] [address] [place] [address] Franchesca Larry MD [address] [facility] [address] [place] [address] 08/11/2025 1:25 PM CDTOffice Visit [facility] [address] [place] [address] Owen Suarez MD [address] [place] [address] Health MaintenanceDue DateLast DoneCommentsHIV for age 15-Hepatitis C screening for age 18-7907/17/1988Hepatitis B series for 19+ (1 of 3 - 19+ 3- dose series)1989Pap test for age 21-RSV vaccine for adults or (1 - Risk 50-74 years 1-dose series)2020OVID-19 vaccine series ( season), 05/27/2021, 09/05/2020epression screening for age 12+6009/18/2024, 09/08/2024, 09/08/2024, Additional history existsBMI (ht and wt on same day) for age 18+, 03/16/2025, 01/07/2025, Additional history existsMammogram for age 40-75 , 06/27/2022Tetanus dyxhxyn64Lipids for age 45-750, 03/29/2020Colonoscopy through age 7504/08/2032 2Pneumococcal series for age 50+Scdtjzalc03/01/2023, 05/25/2022, 02/08/2017Zoster (shingles) series for age 50+Twkvxogao03/25/2025, 04/29/2024, 03/19/2024Influenza LfxcppdMwvqqkkms96/14/2025, 03/10/2024, 06/01/2023, Additional history exists Procedures Procedure NamePriorityDate/TimeAssociated DiagnosisCommentsUS CAROTID DUPLEX BEIKLBLFBZwvfckk40/26/2025 9:25 AM SECURITY REP Carotid stenosis, right URINE ALBUMIN TO CREATININE RATIO, CWFUEQAgvrkjy06/25/2025 3:11 PM SECURITY REP Type 1 diabetes mellitus with moderate nonproliferative diabetic 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,bilateral (HC) HEMOGLOBIN Z4PAkyjvog98/14/2025 1:16 PM SECURITY REP Type 1 diabetes mellitus with moderate nonproliferative diabetic 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,bilateral (HC) SCAN-OPERATIVE/PROCEDURE LNBGCS4704/06/2025 12:00 AM SECURITY REP SCAN-OPERATIVE/PROCEDURE FVXLOX0004/06/2025 12:00 AM SECURITY REP SCAN-DIAGNOSTIC LESKHM5103/24/2025 12:00 AM CDT SCAN-OPERATIVE/PROCEDURE FFNFDK9403/24/2025 12:00 AM CDT SCAN-CARDIAC STRIP03/19/2025 10:23 AM CDTEKG 12 FVMOHfesdeu43/23/2025 10:02 AM CDT Insomnia, unspecified type KS READING EKG - NO CHARGE, COMP XFCVRojybpr43/23/2025 10:01 AM CDT Insomnia, unspecified type GLUCOSE BTASWBxsmr96/23/2025 8:47 AM CDT BASIC METABOLIC PANELEarly AM03/19/2025 7:14 AM CDT CBC W PLT NO DIFFEarly AM03/19/2025 7:14 AM CDT GLUCOSE HAQNEXatvp52/23/2025 1:07 AM CDT SCAN-CARDIAC STRIP03/19/2025 12:58 AM CDTGLUCOSE FKPLUHvomu56/22/2025 9:55 PM CDT GLUCOSE BZVMCIvjhd32/22/2025 6:06 PM CDT [facility] ACTIVATED CLOTTING TM BMJrmek4803/18/2025 3:22 PM CDT ENDOTRACHEAL HUAPYzfqleg70/22/2025 3:09 PM CDT ENDOTRACHEAL UMUTZpdrccb81/22/2025 3:09 PM CDT ENDOTRACHEAL AAWGNrtiahy38/22/2025 3:09 PM CDT REVASCULARIZATION TRANS CAROTID ARTERY (TCAR)03/18/2025 2:26 PM CDT Right carotid artery stenosis Case Notes RIGHT REVASCULARIZATION TRANS CAROTID ARTERY (TCAR) NO EEG NEEDED *AYDEN W/SILKROAD* GLUCOSE GUCXMTvsqa45/22/2025 12:19 PM CDT [facility] KIT EL4Fdblmub75/22/2025 12:05 PM CDT [facility] DRSG CZ6Ptlmboh49/22/2025 12:05 PM CDT [facility] DRSG XH1Iyyjovt39/22/2025 12:05 PM CDT [facility] TUBING ME09Occgzoe20/22/2025 12:05 PM CDT [facility] TUBING SM9Mzffyyf04/22/2025 12:05 PM CDT [facility] ANES ARTERIAL CATH FOR SAMPLE MONITOR SKNAJIaacbck74/22/2025 12:05 PM CDT [facility] CATH INFUSION UV45Bjeqmoz25/22/2025 12:05 PM CDT TYPE & CKIPTGFofuo97/22/2025 11:45 AM CDT BASIC METABOLIC RYFJZNtrdh22/22/2025 11:45 AM CDT CBC W PLT NO PZKBUmsou45/22/2025 11:45 AM CDT SCAN-CARDIAC STRIP03/18/2025 12:00 AM CDT CBC WITH AUTO YGIUGCTTBOFVJyogurf95/20/2025 1:34 PM CDT Preoperative examination BASIC METABOLIC FLAUFHxsopfs34/20/2025 1:34 PM CDT Preoperative examination CBC WITH AUTO XOPTGKSVDHKXUfdcvxk17/20/2025 1:34 PM CDT Preoperative examination T4,XPZIWifghlz36/20/2025 1:34 PM CDT Hyponatremia LJUXpohbta17/20/2025 1:34 PM CDT Hyponatremia XR CHEST 2 VIEWS PA AND PJWSCXDYvonlub45/20/2025 1:08 PM CDT Mild persistent asthma without complication (HC) LIPID PANELEarly AM09/02/2024 4:52 AM CDT XR MAMMO JOSE MANUEL BILAT QDTUKYLesuitl71/09/2024 11:31 AM SECURITY REP Visit for screening mammogram SCAN-EHVQJPXWEYH18/12/2022 7:30 AM SECURITY REP from Last 3 Months or Most Recently Relevant to Health Maintenance Results * US CAROTID DUPLEX BILATERAL (04/22/2025 9:25 AM SECURITY REP)Anatomical Region LateralityModalityCAROTID, NECKUltrasoundSpecimen (Source)Anatomical Location / LateralityCollection Method / VolumeCollection TimeReceived Time04/22/2025 8:59 AM SECURITY REP Narrative 04/22/2025 5:19 PM SECURITY REP VASCULAR ULTRASOUND REPORT EILEEN HALL Accession#: ?? [id number] : ?1970 ??Study Date: ?? 04/22/2025 8:59:23 AM Age: ?54 years ?? Tech: ? BHM Gender: F ?Referring MD: AKHIL FLOWER Site[facility] Study performed: ?Carotid Indication for Study: follow-up stent Study Quality: ?Good Other History: 1 month s/p Right TCAR stenting TECHNIQUE: The extracranial carotid arteries, vertebral arteries and subclavian arteries were examined per exam protocol with duplex ultrasound, color-flow and spectral Doppler. Flow velocities including peak systolic (PSV), end diastolic (EDV), and velocity ratios if applicable were documented at sites per exam protocol. IMPRESSION: 1. Based on the ICA velocities, ICA/CCA ratio, and 2D images the right internal carotid artery is patent status post TCAR stenting without restenosis and is <50%. The left internal carotid artery is patent with mild heterogenous plaque and no significant stenosis <50%. 2. Normal antegrade flow within bilateral vertebral arteries. 3. Multiphasic flow within bilateral subclavian arteries. COMPARISON: Compared to prior study 01/29/2025, right carotid artery is now status post TCAR stenting and thereis <50%. No significant changes on the left. RIGHT FINDINGS: Antegrade flow in the right vertebral artery. Normal multiphasic right subclavian artery flow. LEFT FINDINGS: Antegrade flow in the left vertebral artery. Normal multiphasic left subclavian artery flow. MEASUREMENTS: +--------+--------+------+--------+--------+ RIGHT ?? RIGHT ?LEFT ?LEFT ?? +--------+--------+------+--------+--------+ PSV cm/s EDV cm/s Vessel PSV cm/s EDV cm/s +--------+--------+------+--------+--------+ ??128 ? 27 ?? P. CCA ??151 ? 33 ?? +--------+--------+------+--------+--------+ ?? 64 ? 26 ?? D. CCA ??104 ? 29 ?? +--------+--------+------+--------+--------+ ?? 80 ? 26 ?? P. ICA ??106 ? 36 ?? +--------+--------+------+--------+--------+ ?? 72 ? 23 ?? M. ICA ??107 ? 40 ?? +--------+--------+------+--------+--------+ ?? 80 ? 33 ?? D. ICA ??111 ? 44 ?? +--------+--------+------+--------+--------+ ??366 ? 55 ?? ECA ?114 ? 13 ?? +--------+--------+------+--------+--------+ +-----+ +----+ RIGHT ? LEFT +-----+ +----+ 173 Subclavian Artery (cm/s) 193 +-----+ +----+ 64 ?? Vertebral Artery (cm/s) 65 +-----+ +----+ 1.2 ? ICA/CCA Ratio ? 1.0 +-----+ +----+ +------+---------+ +----+--------+--------+ STENT: Right PSV Right EDV cm/s ? Left PSV Left EDV ?cm/s ?cm/s ?cm/s ?? +------+---------+ +----+--------+--------+ D. CCA ?? 64 ?26 ? Pre ? +------+---------+ +----+--------+--------+ P. ICA ?? 80 ?26 ? PRX ? +------+---------+ +----+--------+--------+ M. ICA ?? 72 ?22 ? Mid ? +------+---------+ +----+--------+--------+ M. ICA ?? 68 ?23 ? DST ? +------+---------+ +----+--------+--------+ D. ICA ?? 80 ?33 ? Post ? +------+---------+ +----+--------+--------+ Mario Nunez MD. Electronically signed on 04/22/2025 5:19:37 PM This study was performed and interpreted by a service accredited by the Intersocietal AccreditationCommission (IAC/Vascular), [email or web address] Report generated by [employer]. ??Final ?? Procedure Note Mario Nunez MD - 04/22/2025 VASCULAR ULTRASOUND REPORT EILEEN HALL : 1970 Study Date: 04/22/2025 8:59:23 AM Age: 54 years Tech: [facility] Gender: F Referring MD: AKHIL FLOWER Site: [facility] Study performed: Carotid Indication for Study: follow-up stent Study Quality: Good Other History: 1 month s/p Right TCAR stenting TECHNIQUE: The extracranial carotid arteries, vertebral arteries and subclavianarteries were examined per exam protocol with duplex ultrasound,color-flow and spectral Doppler. Flow velocities including peak systolic(PSV), end diastolic (EDV), and velocity ratios if applicable weredocumented at sites per exam protocol. IMPRESSION: 1. Based on the ICA velocities, ICA/CCA ratio, and 2D images the rightinternal carotid artery is patent status post TCAR stenting withoutrestenosis and is <50%. The left internal carotid artery is patent withmild heterogenous plaque and no significant stenosis <50%. 2. Normal antegrade flow within bilateral vertebral arteries. 3. Multiphasic flow within bilateral subclavian arteries. COMPARISON: Compared to prior study 01/29/2025, right carotid artery is now statuspost TCAR stenting and there is <50%. No significant changes on theleft. RIGHT FINDINGS: Antegrade flow in the right vertebral artery. Normal multiphasic rightsubclavian artery flow. LEFT FINDINGS: Antegrade flow in the left vertebral artery. Normal multiphasic leftsubclavian artery flow. MEASUREMENTS: +--------+--------+------+--------+--------+ RIGHT RIGHT LEFT LEFT +--------+--------+------+--------+--------+ PSV cm/s EDV cm/s Vessel PSV cm/s EDV cm/s +--------+--------+------+--------+--------+ 128 27 P. CCA 151 33 +--------+--------+------+--------+--------+ 64 26 D. CCA 104 29 +--------+--------+------+--------+--------+ 80 26 P. ICA 106 36 +--------+--------+------+--------+--------+ 72 23 M. ICA 107 40 +--------+--------+------+--------+--------+ 80 33 D. ICA 111 44 +--------+--------+------+--------+--------+ 366 55 ECA 114 13 +--------+--------+------+--------+--------+ +-----+ +----+ RIGHT LEFT +-----+ +----+ 173 Subclavian Artery (cm/s) 193 +-----+ +----+ 64 Vertebral Artery (cm/s) 65 +-----+ +----+ 1.2 ICA/CCA Ratio 1.0 +-----+ +----+ +------+---------+ +----+--------+--------+ STENT: Right PSV Right EDV cm/s Left PSV Left EDV cm/s cm/s cm/s +------+---------+ +----+--------+--------+ D. CCA 64 26 Pre +------+---------+ +----+--------+--------+ P. ICA 80 26 PRX +------+---------+ +----+--------+--------+ M. ICA 72 22 Mid +------+---------+ +----+--------+--------+ M. ICA 68 23 DST +------+---------+ +----+--------+--------+ D. ICA 80 33 Post +------+---------+ +----+--------+--------+ Mario Nunez MD. Electronically signed on 04/22/2025 5:19:37 PM This study was performed and interpreted by a service accredited by the Intersocietal Accreditation Commission (IAC/Vascular), [email or web address] Report generated by [employer]. Final Authorizing ProviderResult TypeResult StatusAkhil Flower MDUSFinal Result * URINE ALBUMIN TO CREATININE RATIO, RANDOM (04/21/2025 3:11 PM SECURITY REP)Component ValueRef RangeTest MethodAnalysis TimePerformed AtPathologist Signature ALBUMIN, URINE2.5See Note: mg/dL04/22/2025 12:11 PM [facility]ST[facility] Comment: Reference Range: Reference Range Not established CREATININE, RANDOM [id number] - 275 mg/dL04/22/2025 12:11 PM CSTQUEST DIAGNOSTICSALBUMIN/CREATININE RATIO, RANDOM URINE22<30 mg/g creat106/22/2024 12:11 PM CSTQUEST DIAGNOSTICSComment: The ADA defines abnormalities in albumin excretion as follows: Albuminuria Category ?Result (mg/g creatinine) Normal to Mildly increased <30 Moderately increased ? 30-299 Severely increased > OR = 300 The ADA recommends that at least two of three specimens collected within a 3-6 month period be abnormal before considering a patient to be within a diagnostic category. Specimen (Source)Anatomical Location / LateralityCollection Method / Volume Collection TimeReceived TimeUrineURINE SPECIMEN / UnknownNon-Blood / Unknown 04/21/2025 3:11 PM CST04/21/2025 3:11 PM SECURITY REP Narrative [facility] - 04/22/2025 12:11 PM SECURITY REP FASTING:UNKNOWN FASTING: UNKNOWN Authorizing ProviderResult TypeResult StatusLulaxmi Suarez MDURINEFinal ResultPerforming OrganizationAddressCity/State/ZIP CodePhone Number [facility] [address] [place] [address], * (ABNORMAL) HEMOGLOBIN A1C (04/10/2025 1:16 PM SECURITY REP)ComponentValueRef RangeTest MethodAnalysis TimePerformed AtPathologist SignatureHEMOGLOBIN A1C8.7(H)<5.7 % 04/11/2025 3:25 AM CSTQUEST DIAGNOSTICSComment: For someone without known diabetes, a hemoglobin A1c value of 6.5% or greater indicates that they may have diabetes and this should be confirmed with a follow-up test. For someone with known diabetes, a value <7% indicates that their diabetes is well controlled and a value greater than or equal to 7% indicates suboptimal control. A1c targets should be individualized based on duration of diabetes, age, comorbid conditions, and other considerations. Currently, no consensus exists regarding use of hemoglobin A1c for diagnosis of diabetes for children. ?? Specimen (Source)Anatomical Location / LateralityCollection Method / Volume Collection TimeReceived TimeBloodBLOOD SPECIMEN / UnknownQuest Collect / Unknown 04/10/2025 1:16 PM CST04/10/2025 1:16 PM SECURITY REP Narrative Authorizing ProviderResult TypeResult StatusLulaxmi Suarez MDCHEMISTRY Final ResultPerforming OrganizationAddressCity/State/ZIP CodePhone Number [facility] [address] [place] [address], * SCAN-OPERATIVE/PROCEDURE REPORT (04/06/2025 12:00 AM SECURITY REP) Narrative Authorizing ProviderResult TypeResult StatusScannerOTHERFinal Result * SCAN-OPERATIVE/PROCEDURE REPORT (04/06/2025 12:00 AM SECURITY REP) Narrative Authorizing ProviderResult TypeResult StatusScannerOTHERFinal Result * SCAN-OPERATIVE/PROCEDURE REPORT (03/24/2025 12:00 AM CDT) Narrative Authorizing ProviderResult TypeResult StatusScannerOTHERFinal Result * SCAN-DIAGNOSTIC REPORT (03/24/2025 12:00 AM CDT) Narrative Authorizing ProviderResult TypeResult StatusScannerOTHERFinal Result * SCAN-CARDIAC STRIP (03/19/2025 10:23 AM CDT) Narrative Authorizing ProviderResult TypeResult StatusScannerOTHERFinal Result * EKG 12 LEAD (03/19/2025 10:02 AM CDT) Narrative Authorizing ProviderResult TypeResult StatusClay Hoyt MDEKG ORDFinal Result * [place] READING EKG - NO CHARGE, COMP ONLY (03/19/2025 10:01 AM CDT) Narrative Authorizing ProviderResult TypeResult StatusClay Hoyt MDPB - PROVIDER READINGSFinal Result * (ABNORMAL) GLUCOSE METER (03/19/2025 8:47 AM CDT) Only the most recent of5 resultswithin the time period is included. ComponentValueRef RangeTest MethodAnalysis TimePerformed AtPathologist Signature GLUCOSE EUSFA832(H)65 - 100 mg/dL03/19/2025 8:47 AM [facility] CENTRAL LABORATORYSpecimen (Source)Anatomical Location / LateralityCollection Method / VolumeCollection TimeReceived TimeBloodBLOOD SPECIMEN / Unknown 03/19/2025 8:47 AM CDT1 8:47 AM CDT Narrative Authorizing ProviderResult TypeResult StatusAkhil Flower MDCHEMISTRYFinal Result Performing OrganizationAddressCity/State/ZIP CodePhone Number [facility] [address] [place] [address], * (ABNORMAL) CBC W PLT No DIFF (03/19/2025 7:14 AM CDT) Only the most recent of2 resultswithin the time period is included. ComponentValueRef RangeTest MethodAnalysis TimePerformed AtPathologist Signature WHITE BLOOD COUNT11.9(H)4.5 - 11.0 thou/cu mm03/19/2025 7:54 AM [facility] LABORATORYRED BLOOD COUNT3.46(L)4.00 - 5.20 mil/cu mm 03/19/2025 7:54 AM [facility] QKNGMQVXBNDDDDNDZRIZ23.2 (L)12.0 - 16.0 g/dL03/19/2025 7:54 AM [facility] BKZONTLWQDAUYBXCAWCX34.2(L)33.0 - 51.0 %03/19/2025 7:54 AM [facility] TBTWUAIUZECDH3563 - 100 fL03/19/2025 7:54 AM [facility] SJHCHRRCEXXFN80.526.0 - 34.0 pg03/19/2025 7:54 AM [facility] PMQFTPNZHNNUHB23.732.0 - 36.0 g/dL03/19/2025 7:54 AM [facility] VDZLNWXLJECAE27.811.5 - 15.5 %03/19/2025 7:54 AM [facility] LABORATORYPLATELET PQRGX374397 - 440 thou/cu mm03/19/2025 7:54 AM [facility] LABORATORYMPV 9.46.5 - 11.0 fL03/19/2025 7:54 AM [facility] LABORATORYNRBC0.0%03/19/2025 7:54 AM [facility] LABORATORYABS NRBC0.0thou /cu mm03/19/2025 7:[address] [facility] LABORATORYSpecimen (Source)Anatomical Location / LateralityCollection Method / VolumeCollection TimeReceived TimeBloodBLOOD SPECIMEN / Unknown Venipuncture / Avbsjnb3103/19/2025 7:14 AM CDT1 7:33 AM CDT Narrative Authorizing ProviderResult TypeResult StatusRachel Sukhdev DOHEMATOLOGYFinal ResultPerforming OrganizationAddressCity/State/ZIP CodePhone Number [facility] [address] [place] [address], * (ABNORMAL) Basic Metabolic Panel (03/19/2025 7:14 AM CDT) Only the most recent of3 resultswithin the time period is included. ComponentValueRef RangeTest MethodAnalysis TimePerformed AtPathologist Signature MYBHVM728(L)136 - 145 mmol/L1 8:02 AM [facility] CENTRAL LABORATORYPOTASSIUM4.93.5 - 5.1 mmol/L1 8:02 AM [facility] AOMSOZXXMKRSHYEARU11(L)98 - 107 mmol/L1 8:02 AM [facility] LABORATORYCO2,OUPCH3623 - 29 mmol/L 03/19/2025 8:02 AM [facility] LABORATORYANION GAP95 - 181 8:02 AM [facility] TFUNNYLCHTHVRWGNG514(H) 70 - 99 mg/dL03/19/2025 8:02 AM [facility] CALCIUM8.7(L)8.8 - 10.4 mg/dL03/19/2025 8:[address] [facility] LABORATORYComment: Reference ranges for this test were updated on 04/01/2024 to reflect our healthy population more accurately. Reference range changes are not retroactively applied to results, but previous results using the same methodology can be interpreted in the context of the new reference range. BUN35(H)6 - 20 mg/dL03/19/2025 8:02 AM [facility] LABORATORYCREATININE1.02(H)0.50 - 0.90 mg/dL03/19/2025 8:02 AM [facility] LABORATORYBUN/CREAT RATIO34(H) - 8:02 AM [facility] GVLDPMLOBQoRVO95(L)>90 mL/min/1.23n57303/19/2025 8:02 AM [facility] LABORATORYComment:As of 08/09/2021, eGFR is calculated by the CKD-EPI creatinine equation without race adjustment. ??eGFR can be influenced by muscle mass, exercise, and diet. ??The reported eGFR is an estimation onlyand is only applicable if the renal function is stable. Specimen (Source)Anatomical Location / LateralityCollection Method / Volume Collection TimeReceived TimeBloodBLOOD SPECIMEN / UnknownVenipuncture / Unknown 03/19/2025 7:14 AM CDT1 7:33 AM CDT Narrative Authorizing ProviderResult TypeResult StatusGinette Santizo DOCHEMISTRYFinal ResultPerforming OrganizationAddressty/[facility]/ZIP CodePhone Number [facility] [address] [place] [address], * SCAN-CARDIAC STRIP (03/19/2025 12:58 AM CDT) Narrative Authorizing ProviderResult TypeResult StatusScannerOTHERFinal Result * (ABNORMAL) ACTIVATED CLOTTING TIME QUT240 ACT (03/18/2025 3:22 PM CDT) ComponentValueRef RangeTest MethodAnalysis TimePerformed AtPathologist SignatureACTIVATED CLOTTING TIME, JAHE841(H)74 - 125 sec03/24/2025 5:58 AM CDT [facility] LABORATORYSpecimen (Source)Anatomical Location / LateralityCollection Method / VolumeCollection TimeReceived Time BloodBLOOD SPECIMEN / Lhtieur6903/18/2025 3:22 PM CDT1 5:57 AM CDT Narrative Authorizing ProviderResult TypeResult StatusAkhil Flower MDHEMATOLOGYFinal Result Performing OrganizationAddressty/State/ZIP CodePhone Number [facility] [address] [place] [address], * HCHG TUBE PR1, HCHG INSTRUMENT DISP PR10, HCHG STYLET PR1 (03/18/2025 3:09 PM CDT) Narrative Inder Guerrero CRNA - 03/18/2025 3:09 PM CDT Inder Guerrero CRNA 03/18/2025 3:09 PM Procedure: ETT Patient location during procedure: OR ETT Properties Mask Ventilation: easy Final Technique: video laryngoscopy Type: straight Location: oral Cuffed: yes Tube Size: 7.0 mm Stylet: yes Laryngoscope Blade: Glidescope Blade Size: 3 Cormack-Lehane Grade View: 1 Insertion Attempts: 1 Placement Verification: auscultation, end tidal CO2 and symmetrical chest wall movement Assessment: pharynx clear, atraumatic and dentition unchanged Secured at: 22 Difficulty: 0 (not difficult) Authorizing ProviderResult TypeResult StatusBrandon Sylvester DOANESTHESIA PX NOTE ORDERABLESFinal Result * HCHG CATH INFUSION PR10, HCHG ANES ARTERIAL CATH FOR SAMPLE MONITOR TRANS, HCHG TUBING PR1, HCHG TUBING PR20, HCHG DRSG PR1, HCHG DRSG PR5, HCHG KIT PR5 (03/18/2025 12:05 PM CDT) Narrative Brandon Sylvester DO - 03/18/2025 12:05 PM CDT Brandon Sylvester DO 03/18/2025 12:06 PM Arterial Line Patient location during procedure: pre-op Start time: 03/18/2025 11:55 AM End time: 03/18/2025 11:59 AM Indications: lab sampling and monitoring Staffing Preanesthetic Checklist Completed: patient identified, risks and benefits discussed, consent obtained and timeout performed Arterial Line Patient position: supine. ??Comment:. Laterality: left Site: radial Local Anesthetic: lidocaine 1%. Securement/dressing: Biopatch applied, dressing applied. ??Comment: Vessel Steward/Stewardess Second Additional supplies used to locate vessel: yes Catheter/Needle Size: 20 G. ??Comment:. Catheter Type: Jelco. ??Comment:. Needle Catheter size: 20 G. ??Comment:. Catheter length: 12 cm. ??Comment: Events: no complications. Additional Notes Anesthesia - Procedure note Eileen Hall Procedure: ??Insertion of invasive arterial pressure line for frequent lab draws or close hemodynamic monitoring. The dorsum of the left wrist was prepped with chlorhexidine solution and draped in a sterile manner. A 20 ga x 5 inch catheter was placed over a wire into the radial artery. ?? After confirming good arterial return an occlusive dressing was placed. ?? No apparent complications at this time. Brandon Sylvester DO Authorizing ProviderResult TypeResult StatusBrandon Sylvester DOANESTHESIA PX NOTE ORDERABLESFinal Result * Type and Screen (03/18/2025 11:45 AM CDT)ComponentValueRef RangeTest Method Analysis TimePerformed AtPathologist SignatureABORHA Rh Vnupttxi10/22/2025 12:46 PM [facility]-CENTRAL LAB BLOOD BANKANTIBODY SCREENNegative Gbjabpzk24/22/2025 12:46 PM [facility]-CENTRAL LAB BLOOD BANK SPECIMEN EXPIRATION DATE/TIME03/21/25 23:5903/18/2025 12:46 PM [facility] BLOOD BANKSpecimen (Source)Anatomical Location / LateralityCollection Method / VolumeCollection TimeReceived TimeBloodBLOOD SPECIMEN / UnknownButterfly / Oxkospp5603/18/2025 11:45 AM CDT1 11:57 AM CDT Narrative Authorizing ProviderResult TypeResult StatusKalptatiana Hummel NPBLOOD BANKFinal ResultPerforming OrganizationAddressCity/State/ZIP CodePhone Number [facility]CENTRAL LAB BLOOD BANK [address] [place] [phone], * SCAN-CARDIAC STRIP (03/18/2025 12:00 AM CDT) Narrative 03/18/2025 12:00 AM CDT Ordered by an unspecified provider. Authorizing ProviderResult TypeResult StatusOther Clinical StaffOTHERFinal Result * (ABNORMAL) CBC WITH AUTO DIFFERENTIAL (03/16/2025 1:34 PM CDT)ComponentValue Ref RangeTest MethodAnalysis TimePerformed AtPathologist SignatureWHITE BLOOD CELL COUNT8.43.8 - 10.8 Thousand/uL03/17/2025 3:32 AM CDTQUEST DIAGNOSTICSRED BLOOD CELL COUNT3.56(L)3.80 - 5.10 Million/uL03/17/2025 3:32 AM CDTQUEST YKWWEOYMPSPRMCPOFTXYS24.5(L)11.7 - 15.5 g/dL03/17/2025 3:32 AM CDTQUEST JPXQKBBEQFJTZYBUIESGN65.7(L)35.0 - 45.0 %03/17/2025 3:32 AM CDTQUEST AYSNVYHMEOSMUJ61.780.0 - 100.0 fL03/17/2025 3:32 AM CDTQUEST DIAGNOSTICSMCH 29.527.0 - 33.0 pg03/17/2025 3:32 AM CDTQUEST XSMRGLERBFMJTBP71.2(L)32.0 - 36.0 g/dL03/17/2025 3:32 AM CDTQUEST DIAGNOSTICSComment: For adults, a slight decrease in the calculated MCHC value (in the range of 30 to 32 g/dL) is most likely not clinically significant; however, it should be interpreted with caution in correlation with other red cell parameters and the patient's clinical condition. RDW12.811.0 - 15.0 %03/17/2025 3:32 AM CDTQUEST DIAGNOSTICSPLATELET HUPJW406870 - 400 Thousand/uL03/17/2025 3:32 AM CDTQUEST DIAGNOSTICSMPV9.77.5 - 12.5 fL 03/17/2025 3:32 AM CDTQUEST UUGKAUNYTXFXKECXDUKTYQ37.4%03/17/2025 3:32 AM CDT [facility] FZRKUOZMURESDLQYXNRUYX95.2%03/17/2025 3:32 AM CDT[facility] MONOCYTES7.1%03/17/2025 3:32 AM CDTQUEST DIAGNOSTICSEOSINOPHILS4.7%03/17/2025 3:32 AM CDTQUEST DIAGNOSTICSBASOPHILS0.6%03/17/2025 3:32 AM CDT[facility] ABSOLUTE KKXTIWHVLJK63144628 - 7800 cells/uL03/17/2025 3:32 AM CDTQUEST DIAGNOSTICSABSOLUTE DWRZKDRZJUJ4468765 - 3900 cells/uL03/17/2025 3:32 AM CDT [facility]ABSOL[facility] DVYSQSBYX143183 - 950 cells/uL03/17/2025 3:32 AM CDT [facility]AB[facility] SRURVCKFJXD88240 - 500 cells/uL03/17/2025 3:32 AM CDT [facility]AB[facility] VMNZTHXCP622 - 200 cells/uL03/17/2025 3:32 AM CDTQUEST DIAGNOSTICSSpecimen (Source)Anatomical Location / LateralityCollection Method / VolumeCollection TimeReceived TimeBloodBLOOD SPECIMEN / UnknownQuest Collect / Okyhjvd5103/16/2025 1:34 PM CDT1 1:34 PM CDT Narrative Authorizing ProviderResult TypeResult StatusSaul Noemy Hoyt MDHEMATOLOGY Final ResultPerforming OrganizationAddressCity/State/ZIP CodePhone Number [facility] [address] [place] [address], [place] [phone] * TSH (03/16/2025 1:34 PM CDT)ComponentValueRef RangeTest MethodAnalysis Time Performed AtPathologist SignatureTSH3.78mIU/L1 7:08 AM CDTQUEST DIAGNOSTICSComment: ?Reference Range ? > or = 20 Years 0.40-4.50 ? Ranges ?First trimester ?0.26-2.66 ?Second trimester ?? 0.55-2.73 ?Third trimester ?0.43-2.91 Specimen (Source)Anatomical Location / LateralityCollection Method / Volume Collection TimeReceived TimeBloodBLOOD SPECIMEN / UnknownQuest Collect / Unknown 03/16/2025 1:34 PM CDT1 1:34 PM CDT Narrative Authorizing ProviderResult TypeResult StatusSaul Noemy QuigleyBroom MDCHEMISTRYFinal ResultPerforming OrganizationAddressCity/State/ZIP CodePhone Number [employer] [address] [address], * T4,FREE (03/16/2025 1:34 PM CDT)ComponentValueRef RangeTest MethodAnalysis TimePerformed AtPathologist SignatureT4, FREE1.30.8 - 1.8 ng/dL03/17/2025 7:08 AM CDTQUEST DIAGNOSTICSSpecimen (Source)Anatomical Location / Laterality Collection Method / VolumeCollection TimeReceived TimeBloodBLOOD SPECIMEN / UnknownQuest Collect / Gehakkd4703/16/2025 1:34 PM CDT1 1:34 PM CDT Narrative Authorizing ProviderResult TypeResult StatusSaul Aargerman Lai MDCHEMISTRYFinal ResultPerforming OrganizationAddressty/State/ZIP CodePhone Number [employer] [facility] [address] [place] [address], * XR CHEST 2 VIEWS PA AND LATERAL (03/16/2025 1:08 PM CDT)Anatomical Region LateralityModalityCHEST, THORAX, Lung, HEARTComputed RadiographySpecimen (Source)Anatomical Location / LateralityCollection Method / VolumeCollection TimeReceived Time03/17/2025 3:12 PM CDT Impressions 03/17/2025 3:12 PM CDT No acute findings. Dictated by Xavier Nur MD @ 03/17/2025 3:12:34 PM (Electronically Signed) Narrative 03/17/2025 3:12 PM CDT For Patients: As a result of the Cures Act, medical imaging exams and procedure reports are released immediately into your electronic medical record. You may view this report before your referring provider. If you have questions, please contact your health care provider. INDICATION: Mild persistent asthma without complication TECHNIQUE: Chest 2 views COMPARISON: 08/23/2020 FINDINGS: Similar vascularity in the right medial lung base. No infiltrate or edema. No effusion or pneumothorax. Stable calcified granuloma. Stable mediastinal contours. No fracture. Procedure Note Xavier Nur MD - 03/17/2025 For Patients: As a result of the Cures Act, medical imagingexams and procedure reports are released immediately into your electronicmedical record. You may view this report before your referring provider.If you have questions, please contact your health care provider. INDICATION: Mild persistent asthma without complication TECHNIQUE: Chest 2 views COMPARISON: 08/23/2020 FINDINGS: Similar vascularity in the right medial lung base. No infiltrate or edema.No effusion or pneumothorax. Stable calcified granuloma. Stablemediastinal contours. No fracture. IMPRESSION: No acute findings. Dictated by Xavier Nur MD @ 03/17/2025 3:12:34 PM (Electronically Signed) Authorizing ProviderResult TypeResult StatusSaul Noemy Hoyt MDGENERAL IMAGINGFinal Result * Lipid Panel - In AM (09/02/2024 4:52 AM CDT)ComponentValueRef RangeTest Method Analysis TimePerformed AtPathologist SignatureCHOLESTEROL,[id number] - 199 mg/dL09/02/2024 5:51 AM [facility]AL LABORATORYComment: Cholesterol, Total Reference Ranges Desirable <200 mg/dL Borderline 200-239 mg/dL High >=240 mg/dL UDLKQNAGEKUDG148<150 mg/dL09/02/2024 5:51 AM [facility]EN[facility]AL LABORATORYHDL RUIXWCYBUUG93>40 mg/dL09/02/2024 5:51 AM [facility]AL LABORATORYNON-HDL SHRWNUHCFJE291<145 mg/dl09/02/2024 5:51 AM [facility]CENTRAL LABORATORYCHOL/HDL RATIO4.27<4.50009/02/2024 5:51 AM [facility]AL LABORATORYLDL ZIDVKIPHUKI180<=130 mg/dL09/02/2024 5:51 AM [facility]-CENTRAL LABORATORYVLDL NLZAZPHMTZY96<=30 mg/dL09/02/2024 5:51 AM [facility]-CENTRAL LABORATORYPROVIDER ORDERED DUXAQHBTAVZB87/08/2025 5:51 AM [facility] LABORATORYSpecimen (Source)Anatomical Location / Laterality Collection Method / VolumeCollection TimeReceived TimeBloodBLOOD SPECIMEN / UnknownVenipuncture / Rwrrdeq2109/02/2024 4:52 AM CDT09/02/2024 5:19 AM CDT Narrative Authorizing ProviderResult TypeResult StatusRaac Duran MDCHEMISTRY Final ResultPerforming OrganizationAddressCity/State/ZIP CodePhone Number [facility] [address] [place] [phone], * XR MAMMO JOSE MANUEL BILAT SCREEN (05/05/2024 11:31 AM SECURITY REP)Anatomical Region LateralityModalityBREASTS, Breast Left, Breast RightBilateralMammography Specimen (Source)Anatomical Location / LateralityCollection Method / Volume Collection TimeReceived Time Impressions 05/06/2024 5:04 PM SECURITY REP There is no radiographic evidence for malignancy. Recommend annual mammograms. MAMMOGRAM ASSESSMENT: ??ACR 1 Negative PATIENTS: You will also receive a letter with your examination results in an easy to read format. ??If you have questions about your results, please contact your referring provider. Narrative 05/06/2024 5:04 PM SECURITY REP For Patients: As a result of the Century Cures Act, medical imaging exams and procedure reports are released immediately into your electronic medical record. You may view this report before your referring provider. If you have questions, please contact your health care provider. XR MAMMO JOSE MANUEL BILAT SCREEN [[id number]] CLINICAL HISTORY: ??This is an asymptomatic 53 y.o. patient. INDICATION FOR EXAM: Mammogram Screening. TECHNIQUE: CC & MLO views were obtained. This study was evaluated with the assistance of Computer-Aided Detection. Breast Tomosynthesis was used in interpretation. COMPARISON FILM: Yes 06/27/22 [employer] ?? FINDINGS: ??The breasts are heterogeneously dense, which may obscure small masses. There are no dominant masses, suspicious micro calcifications or areas of architectural distortion. Authorizing ProviderResult TypeResult StatusSaul Noemy Hoyt MDMAMMOFinal Result * SCAN-COLONOSCOPY (04/08/2022 7:30 AM SECURITY REP) Narrative Procedure Note Monae Robledo MD - 04/08/2022 6:44 AM CST [facility] [address] [place] [address], [address], [place] [address] Patient Name: Eileen Hall Gender: Female Exam Date: 04/08/2022 Visit Number: [id number] Age: 51 Years Date of : 1970 Attending MD: Monae Robledo MD Medical Record#: [id number] Procedure: Colonoscopy Indications: Diarrhea Referring MD: Owen Suarez MD Primary MD: Owen Suarez MD Medications: Admitting Medications: Lactated Ringers Intra Procedure Medications: Patient received monitored anesthesia care. Complications: No immediate complications Procedure: An examination of the heart and lungs was performed and found to be within acceptable limits. . The patient was therefore deemed a reasonablecandidate for endoscopy and sedation. The risks and benefits of the procedure were explained to the patient.After obtaining informed consent, the patient received monitoredanesthesia care and I passed the scope without difficulty via the rectum to the ileum. The appendiceal orificeand ic valve were identified. The scope was retroflexed during theexamination The quality of the prep was good (Bradley/Gat Split). This was a complete examination throughout the entire colon. Findings: Normal finding. Location - ileum. Polyp location: transverse colon. Quantity: 1. Size: 7 mm. Polyp shape:sessile. Maneuver: polypectomy was performed with a cold snare. Removal: complete. Retrieval: complete. Bleeding: none. Polyp location: descending colon. Quantity: 1. Size: 5 mm. Polyp shape:sessile. Maneuver: polypectomy was performed with a cold snare . Removal: complete. Retrieval: complete. Bleeding: none. Remainder of the exam is normal. Random biopsies were taken throughout the colon to rule out microscopiccolitis. Impression: Colorectal polyps Preliminary Plan: The patient and their physician will receive a copy of the pathologyreport as well as pathology-based recommendations for future screening orsurveillance. Pathology Results: A: COLON, RANDOM, BIOPSY: 1. Normal colonic mucosa 2. Negative for microscopic, active, and chronic colitis B: COLON, TRANSVERSE, POLYP: 1. Sessile serrated adenoma 2. Negative for overt dysplasia 3. Per the colonoscopy report: a. Polyp size: 7 mm b. Resection: Complete c. Retrieval: Complete C: COLON, DESCENDING, POLYP: 1. Hyperplastic polyp MICROSCOPIC A: Performed B: Performed C: Performed Electronically signed by: Rigo [place] [address] Orders Instruction(s)/Education: Instruction/Education Timeframe Assessment Colon Cancer Prevention K63.5 Colon Polyps K63.5 Final Plan: Repeat colonoscopy in 5 years. We will attempt to contact you at appropriate intervals via U.S. mail. Wemay not be able to find you or contact you at that time, therefore youshould know that the responsibility for following our recommendation restswith you. If you don't hear from us at the time your procedure is due,please contact our office to schedule an appointment. If your contactinformation should change, please contact our office so that we can updateyour record. Additional Comments: Follow up as scheduled. _Electronically signed by: Alissa Barry MD 04/08/2022 cc: Owen Suarez MD cc: Owen Suarez MD cc: Owen Suarez MD Authorizing ProviderResult TypeResult StatusSandra Alda Robledo MDOTHERFinal Result from Last 3 Months or Most Recently Relevant to Health Maintenance Insurance Advance Directives * Full Code (Latest Code Status on File) Date ActivatedDate CboypfloreiVshjoarb95/22/2025 11:19 AM03/19/2025 3:57 PM QuestionAnswerCommentsCode Status Discussion:* Unable to Assess Preferences, Provider to review later * Full Code Date ActivatedDate InactivatedComments12/17/2024 8:40 PM12/26/2024 3:56 PMQuestion AnswerCommentsCode Status Discussion:* Reviewed Preferences * Full Code Date ActivatedDate InactivatedComments09/01/2024 10:44 PM09/03/2024 4:13 PMQuestion AnswerCommentsCode Status Discussion:* Reviewed Preferences * Full Code Date ActivatedDate InactivatedComments09/01/2024 4:11 AM09/01/2024 9:39 PMQuestion AnswerCommentsCode Status Discussion:* Reviewed Preferences * Full Code Date ActivatedDate InactivatedComments01/07/2024 11:52 PM01/09/2024 4:28 PM QuestionAnswerCommentsCode Status Discussion:* Reviewed Preferences Care Teams Team MemberRelationshipSpecialtyStart DateEnd Date Clay Hoyt MD [address] [place] [address] [facility] - [facility]/24 Owen Suarez MD [address] [place] [address] Endocrinology07/04/22 Tata Garcia RN [address] [place] [address] Diabetes EducatorRegistered Nurse04/21/25
--- OUTSIDE RECORDS SUMMARY | 2025-05-22 16:12 | XMS_ITS | Encounter Summary ---
Author Organization [place] Address [address] [place] [address] Care Team Providers Care Executive Talent Acquisition Consultant Name Role Phone Clay Hoyt MD Primary Care Provider [phone] Xavier Saldivar MD Unavailable Xavier Saldivar MD Unavailable Erica Nieto RD Unavailable [phone] Siobhan Rodrigez MD Unavailable [phone] EloHu ricks MD Unavailable [phone] Comfort Cook PhD Unavailable [phone] Lukas Mosher MD Unavailable [phone] Xavier Marte MD Unavailable [phone] Hu Gasca MD Unavailable [phone] Larry Rosas PhD Unavailable [phone] Krystal Rico [facility] Unavailable [phone] Krystal Rico [facility] Unavailable [phone] Encounter Details DateTypeDepartmentCare Team (Latest Contact Info)Olnmbdmqnrk09/03/2025Travel Social History Tobacco UseTypesPacks/DayYears UsedDateSmoking Tobacco: Every DayCigarettes0.5 48.6Started: 10/26/2006PipeStarted: 3Passive Smoke Exposure: Current Smokeless Tobacco: NeverAlcohol UseStandard Drinks/WeekCommentsNot Currently0 (1 standard drink = 0.6 oz pure alcohol)RARELYPHQ-2AnswerDate RecordedPHQ-2 Score1 5Adolescent EducationAnswerDate RecordedGetting School Help NeededNot on file3CommentsNoSex and Gender InformationValueDate Recorded Sex Assigned at GpnfkFatbji01/02/2021 8:35 AM CDTLegal McwUaamyf79/26/2021 11:46 AM CDTGender JihsayohPgftdk40/02/2021 8:35 AM CDTSexual OrientationStraight 12/27/2020 8:35 AM CDTdocumented as of this encounter Plan of Treatment DateTypeDepartmentCare Team (Latest Contact Info)Nhzjephiekk24/31/2025 2:00 PM CSTAncillary Procedure [facility] Xray [address] [place] [phone] Yarelis Leavitt, PA-C [facility] [address] [facility] [facility] [address] [place] [id number] 07/21/2025 10:15 AM CSTOffice Visit [facility] [place] [address] [place] [address] Drive [address] [place], [place] [address] [place] [address] [place] [address] 09/24/2025 3:30 PM CDTOffice Visit [facility] [address] 3rd [place] [phone] Xavier Saldivar MD [address] [place] [address] [id number] [place], [place] [address] documented as of this encounter Visit Diagnoses Not on filedocumented in this encounter Additional Health Concerns AssessmentNoted TimePHQ-9 Depression Total Score: 11: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 documented as of this encounter Care Teams Team MemberRelationshipSpecialtyStart DateEnd Date Clay Hoyt MD [facility]/22[facility]20 Xavier Saldivar MD [address] [place], [place] [id number] [address] Neurology10/22/20 Xavier Saldivar MD [address] [place], [place] [id number] [address] Assigned Neuroscience Provider01/02/[address] [place] [address] Registered DietitianDietitian, Wxqompkwul23/23/21 [place] [address] [place] [address] Assigned Pain Medication Provider12/02/22 Hu Gasca MD [address] [place] [address] 276 [place], [place] [address] MDCritical Care08/02/23 Comfort Cook, PhD LP [address] [place] [address] PsychologistNeuropsychology08/17/23 Lukas Mosher MD [address] [place] [address] 486 [place], [place] [address] Neurology08/17/23 Xavier Marte MD [address] [place] [address] Assigned Heart and Vascular Provider12/18/23 Hu Gasca MD [address] [facility] [address] [place] [address] Assigned Pulmonology Iftybgiw40/23/24 Larry Rosas, PhD LP [address] [place], [place] [address] Assigned Behavioral Health Mjmvhrsg42/23/24 Krystal Rico [facility] [address] [place] [address] PharmacistPharmacist09/25/24 Krystal Rico [facility] [address] [place] [address] Assigned MTM Pharmacist10/17/24documented as of this encounter
--- OUTSIDE RECORDS SUMMARY | 2025-05-22 16:12 | XMS_ITS | Encounter Summary ---
Author Organization [place] Address [address] [place] [address] Care Team Providers Care Inspector Precision Name Role Phone Clay Hoyt MD Primary Care Provider [phone] Xavier Saldivar MD Unavailable Xaveir Saldivar MD Unavailable Erica Nieto RD Unavailable [phone] Siobhan Rodrigez MD Unavailable [phone] EloHu ricks MD Unavailable [phone] Comfort Cook PhD Unavailable [phone] Lukas Mosher MD Unavailable [phone] Xavier Marte MD Unavailable [phone] Hu Gasca MD Unavailable [phone] Larry Rosas PhD Unavailable [phone] Krystal Rico [facility] Unavailable [phone] Krystal Rico [facility] Unavailable [phone] Encounter Details DateTypeDepartmentCare Team (Latest Contact Info)Yozziywchbf76/20/2025Travel Social History Tobacco UseTypesPacks/DayYears UsedDateSmoking Tobacco: Every DayCigarettes0.5 48.6Started: 10/26/2006PipeStarted: 3Passive Smoke Exposure: Current Smokeless Tobacco: NeverAlcohol UseStandard Drinks/WeekCommentsNot Currently0 (1 standard drink = 0.6 oz pure alcohol)RARELYPHQ-2AnswerDate RecordedPHQ-2 Score4 5Adolescent EducationAnswerDate RecordedGetting School Help NeededNot on file3CommentsNoSex and Gender InformationValueDate Recorded Sex Assigned at YpugdFehpdi99/02/2021 8:35 AM CDTLegal NayNwcgof83/26/2021 11:46 AM CDTGender IfcdnelgCvmeqk69/02/2021 8:35 AM CDTSexual OrientationStraight 12/27/2020 8:35 AM CDTdocumented as of this encounter Plan of Treatment DateTypeDepartmentCare Team (Latest Contact Info)Vzjsadjohpk66/31/2025 2:00 PM CSTAncillary Procedure [facility] Xray [address] [place] [phone] Yarelis Leavitt, PA-C [facility] [address] [facility] [address] [place] [id number] 07/21/2025 10:15 AM CSTOffice Visit [facility] [place] [address] [place] [address] Drive [address] [place], [place] [address] [place] [address] [place] [address] 09/24/2025 3:30 PM CDTOffice Visit [facility] [address]rd [place] [phone] Xavier Saldivar MD [address] [place] [address] [id number] [place], [place] [address] documented as of this encounter Visit Diagnoses Not on filedocumented in this encounter Additional Health Concerns AssessmentNoted TimePHQ-9 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 Care Teams Team MemberRelationshipSpecialtyStart DateEnd Date Clay Hoyt MD [facility]20 Xavier Saldivar MD [address] [place] [id number] [address] Neurology10/22/20 Xavier Saldivar MD [address] [place] [address] [address] Assigned Neuroscience Provider01/02/[address] [place] [address]335 Registered DietitianDietitian, Hxtmqvlpkk47/23/21 [place] [address] [place] [address] Assigned Pain Medication Provider12/02/22 Hu Gasca MD [address] [place] [address] 276 [place], [place] [address] MDCritical Care08/02/23 Comfort Cook, PhD LP [address] [place] [address] PsychologistNeuropsychology08/17/23 Lukas Mosher MD [address] [place] [address] 486 [place], [place] [address] Neurology08/17/23 Xavier Marte MD [address] [place] [address] Assigned Heart and Vascular Provider12/18/23 Hu Gasca MD [address] [facility] [address] [place] [address] Assigned Pulmonology Laucriig41/23/24 Larry Rosas, PhD LP [address] [place], [place] [address] Assigned Behavioral Health Ifszhnnr62/23/24 Krystal Rico [facility] [address] [place] [address] PharmacistPharmacist09/25/24 Krystal Rico [facility] [address] [place] [address] Assigned MTM Pharmacist10/17/24documented as of this encounter
--- OUTSIDE RECORDS SUMMARY | 2025-05-22 16:12 | XMS_ITS | Data Portability ---
Author Organization [facility], [facility] Address [address] [place] [address] Care Team Providers Care Logistical Engineer Name Role Phone ALEX RAMOS Primary Care Provider CRAIG DON Primary Care Provider Assessment No assessment recorded. Plan of Treatment Reminders Order DateSubmit DateProviderLast Modified ByOrganization DetailsLast Modified TimeDetailsAppointmentsESTABLISHED 03:20PMSommer CORRIGAN availableNot availableNot availableLaburinalysis, [id number] [facility], [address], [address], [place], [address], 11 12:18:37urinalysis, svovopbxncb66/10/2025 04/06/2025THENAM[facility], [address], [address], [place], [address], 20 12:18:42urinalysis, dipstick /[facility]NAMinn[facility], [address], [address], [place], [address], 05 16:52:39urinalysis, maxdnovgtft78/01/202508/05/20245698eancldte02Vwpufhqkc [facility], [address], [address], [place], [address], 08/05/2024 17:05:03 ReferralNone recorded.Proceduresurodynamic testing, complex (PROC)12/26/2024 12/26/20246278brecep13Cct /06/2025 13:17:00SurgeriesNone recorded.Imaging CT, ufhqftu15THENARayus [facility] [place], [address], [address], [place], [address], 12/09/2024 18:56:27 Medication OrdersMacrobid 100 mg ubnsvfc37THENA[id number], [address], [place], [address], 08/03/2025 05:02:04 Patient TargetsNo targets recorded. Patient Instructions Encounter Date Encounter Id Patient Instructions Last Modified By Organization Details Last Modified Time 12/26/2024 [id number] Urinary retentio n: - Patient with history of type 1 diabetes with gastroparesis and neuropathy. - Recent admission for constipation, gastroparesis, and abdominal pain. Also had intermittent low blood pressure (down to 80's/40's intermittently). Bowels are now much improved. - She did have Lassiter catheter placed during her recent hospitalization. Lassiter removed prior to discharge. Bladder scans at the hospital ranged from 400-77cc. PVR today is 150 cc. - No prolapse seen on exam today. - Discussed avoidance of constipation. - Recommended pelvic floor physical therapy given difficulty starting urinary stream. She is overwhelmed with her cardiac rehab at this time and does not want more therapy. - Discussed double voiding with Crede maneuvers. - Discussed possibility of learning CIC if she has intermittent issues emptying her bladder. She is interested in learning CIC for times she is not able to empty her bladder to avoid needing to have another lassiter placed. - Discussed possibility of doing urodynamic studies for further testing and evaluation of her bladder. She is interested in doing this, will order. - Would not recommend Flomax given low blood pressure during recent hospitalization. Follow up following UDS testing.sqotwxkd97Kvc imatuvpxf90/01/2025 17:04:48 [id number] retention---incompelte emptying pvr low today - Patient with history of type 1 diabetes with gastroparesis and neuropathy. -intermittent incomplete emptying -learned ISC does it when needed -No prolapse seen on exam today. - Discussed avoidance of constipation. - Recommended pelvic floor ph ysical therapy given difficulty starting urinary stream. She is overwhelmed with her cardiac rehab at this time and does not want more therapy at this point - Discussed double voiding with Crede maneuvers. -UDS: complaint bladder large PVR atonic detrusor + vianey x 1. no DO EMG coordinated. Hematuria --cysto negative/ct now and call her to see in 3 months with megan to see where she is at as she has alot going on. ghvkzwjde2Zkd nqktaigxa50/10/2025 11:13:27 Reason for Referral None Reported. Results Created Date Observation Date Name Description Value Unit Range Abnormal Flag Note LastModifiedBy Organization Detail LastModifiedTime 12/26/2024 12/26/2024 UA WITHOUT MICRO - CS URISCAN blood - uriscan NEGATIVE negativeNot AvailableM[facility] [address], [place], [address], Ph [phone] 16:52:39 UA WITHOUT MICRO - CS URISCANbilirubin - uriscanNEGATIVE mg/dLnegativeNot AvailableM[facility] [address] [facility] [address], [place], [address], Ph [phone] 16:52:39 UA WITHOUT MICRO - CS URISCANurobilinogen - uriscanNORMAL mg/dLnormalNot AvailableOklahoma [facility] [address] [facility] [address] [facility] [address], [place], [address], Ph [phone] 16:52:39 UA WITHOUT MICRO - CS URISCANketones - uriscanNEGATIVEmg/dL negativeNot AvailableOklahoma [facility] [address], [place], [address], Ph [phone] 16:52:39 /05/2024UA WITHOUT MICRO - CS URISCANprotein - uriscanNEGATIVEmg/dL negativeNot AvailableO[facility] [address] [place] [address] [address], [place], [address], Ph [phone] 16:52:39 /05/2024UA WITHOUT MICRO - CS URISCANnitrites - uriscanNEGATIVE negativeNot AvailableO[facility] [address] [place] [address] [address], [place], [address], Ph [phone] 16:52:39 UA WITHOUT MICRO - CS URISCANglucose - gregvto5222wm/dL negativeabnormalNot AvailableOklahoma [facility] [address] [place] [address] [address], [place], [address], Ph [phone] 16:52:39 12/26//05/2024UA WITHOUT MICRO - CS URISCANpH - uriscan7.005.00-9.00Not [facility] [address] [place] [address] [address], [place], [address], Ph ([phone]) - 16:52:39 12/26//05/2024UA WITHOUT MICRO - CS URISCANsp. gravity - uriscan<=1.01 1.01-1.03Not AvailableO[facility] [address] [place] [address] [address], [place], [address], Ph [phone] - 16:52:39 /05/2024UA WITHOUT MICRO - CS URISCANleukocytes - uriscanNEGATIVE negativeNot AvailableO[facility] [address] [place] [address] [address], [place], [address], Ph [phone] 16:52:39 UA WITHOUT MICRO - CS URISCANcolor - uriscanLT. YELLOWlt. yellow;yellowNot AvailableO[facility] [address] [facility] [address], [place], [address], 52 16:52:39 UA WITHOUT MICRO - CS URISCANclarity - uriscanCLEARclearNot AvailableO[facility] [address] [facility] [address], [place], [address], 83 16:52:39 UA WITHOUT MICRO - CS URISCANtotal urine volume (mL)80 CC/mL *Please note the following minimum quantities for additional urine testing: - Atypicals: 3 mL - Cytology: 20 mL - GC/CH: 2 mL - FISH: 30 mL - Atypicals w/ GC/CH: 5 mL - Cytology PLUS FISH: 50 mL - Urine Culture: 3 mL -------- This lab result is being provided to you and your provider at the same time in compliance with the 21st Century Cures Act. Your provider may not have had time to review and make recommendations based on the result. Please allow up to one week for provider review.Not AvailableM[facility] [address] [facility] [address] [facility] [address], [place], [address], 06 16:52:39 UA WITHOUT MICRO - CS URISCANblood - uriscanSMALLnegative abnormalNot AvailableMinnesota [facility] [address] [facility] [address] [facility] [address], [place], [address], [address]/06/2024 12:18:37 UA WITHOUT MICRO - CS URISCANbilirubin - uriscanNEGATIVE mg/dLnegativeNot AvailableMinnesota [facility] [address] [place] [address] [address], [place], [address], Ph [phone] 12:18:37 UA WITHOUT MICRO - CS URISCANurobilinogen - uriscanNORMAL mg/dLnormalNot AvailableMinnesota [facility] [address] [place] [address] [address], [place], [address], [address]/06/2024 12:18:37 UA WITHOUT MICRO - CS URISCANketones - uriscanNEGATIVEmg/dL negativeNot AvailableMinnesota [facility] [address] [place] [address] [address], [place], [address], [address]/06/2024 12:18:37 UA WITHOUT MICRO - CS URISCANprotein - uriscanNEGATIVEmg/dL negativeNot AvailableMinnesota [facility] [address] [place] [address] [address], [place], [address], [address]/06/2024 12:18:37 UA WITHOUT MICRO - CS URISCANnitrites - uriscanNEGATIVE negativeNot AvailableMinnesota [facility] [address] [place] [address] [address], [place], [address], [address]/06/2024 12:18:37 UA WITHOUT MICRO - CS URISCANglucose - hmfzzsk887uh/dL negativeabnormalNot AvailableMinnesota [facility] [address] [place] [address] [address], [place], [address], [address]/06/2024 12:18:37 UA WITHOUT MICRO - CS URISCANpH - uriscan5.005.00-9.00Not AvailableO[facility] [address] [place] [address] [address], [place], [address], Ph [phone] 12:18:37 UA WITHOUT MICRO - CS URISCANsp. gravity - uriscan1.02 1.01-1.03Not AvailableO[facility] [address] [place] [address] [address], [place], [address], Ph [phone] 12:18:37 UA WITHOUT MICRO - CS URISCANleukocytes - uriscanNEGATIVE negativeNot [facility] [address] [place] [address], [place], [address], Ph [phone] 12:18:37 UA WITHOUT MICRO - CS URISCANcolor - uriscanLT. YELLOWlt. yellow;yellowNot [facility] [address] [place] [address], [place], [address], Ph [phone] 12:18:37 UA WITHOUT MICRO - CS URISCANclarity - uriscanCLEARclearNot AvailableOklahoma [facility] [address] [place] [address] [address], [place], [address], Ph [phone] 12:18:37 UA WITHOUT MICRO - CS URISCANtotal urine volume (mL)90 ML/mL *Please note the following minimum quantities for additional urine testing: - Atypicals: 3 mL - Cytology: 20 mL - GC/CH: 2 mL - FISH: 30 mL - Atypicals w/ GC/CH: 5 mL - Cytology PLUS FISH: 50 mL - Urine Culture: 3 mL -------- This lab result is being provided to you and your provider at the same time in compliance with the 21st Century Cures Act. Your provider may not have had time to review and make recommendations based on the result. Please allow up to one week for provider review.Not AvailableO[facility] [address] [place] [address], [address], [address]/06/2024 12:18:37 UA MICROSCOPICU-WBC0 - 2[hpf]0 - 2Not AvailableO[facility] [address] [place] [address], [address], 932[address]6/06/2024 12:18:42 UA MICROSCOPICU-RBC0 - 2[hpf]0 - 2Not AvailableO[facility] [address] [place] [address], [place], [address], [address]/06/2024 12:18:42 UA MICROSCOPICbacteriaNONE[hpf]none;rareNot Available [facility] [address] [facility] [address], [place], [address], [address]/06/2024 12:18:42 UA MICROSCOPICsquamous epiNEGATIVE/lpfnegative,smallThis lab result is being provided to you and your provider at the same time in compliance with the 21st Century Cures Act. Your provider may not have had time to review and make recommendations basedon the result. Please allow up to one week for provider review.Not AvailableMinnesota [facility] [address], [place], [address], 106/06/2024 12:18:42 /T, abdomen + pelvis, w/ contrastNo observation recorded. syxod7Lyx Hmfciyomm45/21/2025 14:47:381/T, urogramNo observation recorded.[facility]AR[facility] [place] [address], [place], [address], 107/05/2024 10:37:45 Result Notes None recorded. Procedures Surgical History Date Name Laterality Status Provider Name and Address Organization Details Recorded Time 04/06/2025 Cystoscopy- female completedVera Lacy MD [address] [place] [address],[address], [place], [address], [facility] Mndbjsh66/10/2025 11:09:5204/06/2025OMPLEX VISITcompletedVera Lacy MD [address] [place] [address],[address], [place], [address], [facility] Kuutwka81/10/2025 07:56:4604/06/2025In and Out Catheterization- femalecompletedVera Lacy MD [address] [place] [address],[address], [place], [address], [facility] Ltmtkzt47/10/2025 11:21:421Urodynamic Studiescompleted Vera Lacy MD [address] [place] [address],[address], [place], [address], [facility] Wfuzdwd28/03/2025 14:04:05001/06/2025Teach self cath- female completedKrystle [facility] [place] Gqbmlsj9101/06/2025 15:38:12001/06/2025 Bladder ScancompletedK[facility]le [facility] Arlptoy6901/06/2025 15:05:32 12/26/2024Past Data ReviewedcompletedKATLYSimón HARPREET, PA [address] [facility],[address], [place], [address], [facility] Acsjbde8412/26/2024 17:06:0108In and Out Catheterization- femaleELIJAH Cherry [address] [facility],[address], [place], [address], [facility]12/26/2024 16:22:09032Diagnostic colonoscopy completedNot Available[facility]12/22/2024 22:08:10Laparoscopic cholecystectomy completedNot AvailableGreen [facility] Note12/22/2024 22:08:10Insert epicard eltrd open completedNot AvailableGreen [facility] Note12/22/2024 22:08:10Laparoscopy remove adnexa completedNot [facility] Note12/22/2024 22:08:10 Imaging Results None recorded. Procedure Notes None recorded. Medical Equipment None Reported. Allergies Allergen ID Allergen Name Allergen Category Reaction Reaction Severity Criticality Documentation Date Start Date Code Code System Note Provider Name and Address Organization Details Recorded Time 364432 ciprofloxacin medication Not available Not available Not mdljlkliz65/01/150285/36476033FaSxbtKqpygh vomitingClaire wasserman [facility]12/26/2024 15:42:43959660nsuue gluten extractfooddiarrhea nausea Not available Not available Not qddbdwafj04/35162251723FfLmsswquekcplhwmq reaction (text: Constipation, code: 08788637) (from external source) unrecognized reaction (text: GI Upset, code: 438500984) (from external source) unrecognized reaction (text: Intolerance-Can't Take, code: 26087738) (from external source) unrecognized reaction (text: Stomach Upset, code: 948634187) (from external source)Claire wasserman [facility]12/26/2024 15:42:17388433ljlckepbywtchdmdebgxiuOfk available Not available Not rjkyfcdcc60/759294626BlRqoongwjfhqljcjp reaction (text: Nausea and Vomiting, code: 46165124) (from external source)Claire wasserman [facility] Ynftltj3112/26/2024 15:42:81827452Zvykygcvs with sulfonamide structure and antibacterial mechanism of action (substance)medicationNot available Not available Not fvytalrvo471740398297956MJTQISBwzcre Rizo null, [facility] Vsmoutz2112/26/2024 15:42:51 Medications Name Sig Start Date Stop Date Status Note LastModified by Organization Details LastModified Time amoxicillin 500 mg capsule TAKE 1 CAPSULES FOR 3 TIMES A DAY UNTIL FINISHED activeNot AvailableNot AvailableNot Availableprednisone 10 mg tabletTAKE 1 TABLET DAILY UNTIL FINISHED.12/26/2024ompletedNot AvailableNot AvailableNot Availablevenlafaxine ER 75 mg capsule,extended release 24 hrTAKE 1 CAP EVERY MORNING AND 2 CAPS AT BEDTIMEactiveNot AvailableNot AvailableNot Available venlafaxine 75 mg tabletTAKE 1 TABLET (75 MG) BY MOUTH 2 TIMES DAILY EVENING/SUPPER TIME04/06/20259632anweqhwwq7690-86-98 HN: Patient reports no longer takingNot AvailableNot AvailableNot Availablenicotine 14 mg/24 hr daily transdermal patchAPPLY 1 PATCH ON DRY, CLEAN, HAIRLESS SKIN ONCE DAILY. USE AFTER 21MG PATCH.activeNot AvailableNot AvailableNot Availablealprazolam 1 mg tabletTAKE 1 TAB BY MOUTH 5 TIMES A DAY NEEDED FOR SEVERE DBWBXRD4904/06/2025 lzooenvzl2268-64-34 HN: Patient reports no longer takingNot AvailableNot AvailableNot Availableondansetron HCl 4 mg tabletTAKE 1 TABLET BY MOUTH EVERY 8 HOURS NEEDEDactiveNot AvailableNot AvailableNot Availablevenlafaxine ER 150 mg capsule,extended release 24 hrTAKE 1 CAPSULE (150 MG) BY MOUTH AT BEDTIME activeNot AvailableNot AvailableNot Availableclopidogrel 75 mg tabletTAKE 1 TAB BY MOUTH ONCE DAILY IN THE MORNINGactiveNot AvailableNot AvailableNot Available hydrocodone 10 mg-acetaminophen 325 mg tabletTAKE 1 TABLET EVERY 6 HOURS 04/06/20253891yxtmofnkv0153-32-44 HN: Patient reports no longer takingNot Available Not AvailableNot AvailableReglan 10 mg tabletTake 1 tablet 4 times a day by oral route before meal(s).activeNot AvailableNot AvailableNot AvailableMacrobid 100 mg capsuleTake 1 capsule twice a day by oral route as directed for 3 days, for UDS testing./ompletedNot AvailableNot AvailableNot Available levothyroxine 100 mcg tabletTAKE 1 TABLET BY MOUTH ONCE DAILY.activeNot AvailableNot AvailableNot Availablelosartan 100 mg-hydrochlorothiazide 25 mg wlpaiw26xd 1/2 tablet at csdetpq9204/06/20250754soswotosx0371-56-39 HN: Patient reports no longer takingNot AvailableNot AvailableNot Availablelevothyroxine 88 mcg tabletTAKE 1 TABLET BY MOUTH ONCE DAILY.activeNot AvailableNot AvailableNot Availabletamsulosin 0.4 mg capsule0.4mg 1/dayactiveNot AvailableNot AvailableNot Availablelevothyroxine 50 mcg tabletTAKE 1 TABLET BY MOUTH ONCE DAILY. 04/06/20255270pcventkiw0321-79-34 HN: Patient reports no longer takingNot Available Not AvailableNot Availablepantoprazole 40 mg tablet,delayed releaseTAKE 1 TABLET BY ORAL ROUTE 2 TIMES EVERY DAY 30 MIN BEFORE MEALSactiveNot AvailableNot AvailableNot Availabletrazodone 150 mg tabletTAKE 1 TO 2 TABLETS BY MOUTH AT BEDTIME NEEDEDactiveNot AvailableNot AvailableNot Availablelosartan 25 mg tabletTAKE 0.5 TABLETS BY MOUTH ONCE DAILY.04/06/20259174wgnnelqyp5964-12-94 HN: Patient reports no longer takingNot AvailableNot AvailableNot Availablenicotine 21 mg/24 hr daily transdermal patchApply 1 patch 1/day04/06/2025ompleted 2025-04-03 HN: Patient reports no longer takingNot AvailableNot AvailableNot Availablenitroglycerin 0.4 mg sublingual tabletPLEASE SEE ATTACHED FOR DETAILED DIRECTIONSactiveNot AvailableNot AvailableNot Availablegabapentin 300 mg capsule TAKE 1 CAPSULE BY MOUTH THREE TIMES A DAYactiveNot AvailableNot AvailableNot Availablemetoprolol succinate ER 25 mg tablet,extended release 24 hrTAKE 0.5 TAB BY MOUTH ONCE DAILYactiveNot AvailableNot AvailableNot Availableondansetron 4 mg disintegrating kitjot6ad 2/dayactiveNot AvailableNot AvailableNot Available dicyclomine 10 mg capsuleTAKE 1 CAPSULE BY ORAL ROUTE UP TO 3 TIMES EVERY DAY NEEDEDactiveNot AvailableNot AvailableNot AvailableAdult Low Dose Aspirin 81 mg tablet,delayed zxiqogo65 MG EC 1/dayactiveNot AvailableNot AvailableNot Availablebuprenorphine HCl [address] 0.5 TABLETS (1 MG) UNDER THE TONGUE 2 TIMES DAILY.activeNot AvailableNot AvailableNot AvailableNovolog FlexPen U-100 Insulin aspart 100 unit/mL (3 mL) subcutaneousINJECT 5-8 UNITS SUBCUTANEOUS 3 TIMES DAILY BEFORE MEALS PLUS SLIDING SCLE. TOTAL DAILY DOSE 33 UNITactiveNot AvailableNot AvailableNot Availablecyclobenzaprine 5 mg tabletTAKE 1 TABLET (5 MG) BY MOUTH 2 TIMES DAILY NEEDED FOR MUSCLE SPASMSactiveNot AvailableNot AvailableNot Availablerosuvastatin 20 mg tabletTAKE 1 TAB BY MOUTH AT BEDTIMEactiveNot AvailableNot AvailableNot Availablealprazolam 1 mg disintegrating kuzxhv3op 5/dayactiveNot AvailableNot AvailableNot Available levalbuterol HFA 45 mcg/actuation aerosol inhalerINHALE 2 PUFFS INTO THE LUNGS EVERY 6 HOURS NEEDED FOR SHORTNESS OF BREATH OR WHEEZING.activeNot Available Not AvailableNot Availablechlorhexidine gluconate 0.12 % mouthwashRINSE 2 X DAILY FOR 30 SECOND. SWISH AND SPIT, STANDARD DISPENSE.04/06/2025ompleted 2025-04-03 HN: Patient reports no longer takingNot AvailableNot AvailableNot Tcviygdopxiaucxefsnpdy03 mcg every morning on an empty stomach /day12/26/2024 completedNot AvailableNot AvailableNot AvailabledicyclomineactiveNot Available Not AvailableNot Nnfbqgqzvkoxzqhutrp860 mg /day12/26/2024ompletedNot Available Not AvailableNot Availablemetoclopramide (bulk)dvsxtr7331-87-50 HN: Patient reports no longer takingNot AvailableNot AvailableNot Availablesodium fluoride 1.1 % dental pasteBRUSH 2 TIMES DAILY FOR 2 MINUTES. SWISH AND SPIT106/06/2024 gdekbewot5482-79-52 HN: Patient reports no longer takingNot AvailableNot AvailableNot Availablecyclobenzaprine 1 mg-msm 65 mg/mL oral suspension compounding kit5mg 3/day04/06/20255543eekyswhqs1580-79-44 HN: Patient reports no longer takingNot AvailableNot AvailableNot AvailableTresiba FlexTouch U-100 insulin 100 unit/mL (3 mL) subcutaneous penINJECT 17 UNITS SUBCUTANEOUS ONCE DAILY IN THE EVENING.activeNot AvailableNot AvailableNot AvailableBelbuca [address] 1 FILM (450 MCG) INSIDE CHEEK EVERY 12 HOURS.04/06/2025 akdblfbex8244-72-06 HN: Patient reports no longer takingNot AvailableNot AvailableNot AvailableTrelegy Ellipta1 puff into lungs daily 1/dayactiveNot AvailableNot AvailableNot Availablerosuvastatin 20 mg sprinkle kpcgkut62tn 1 tablet at xtgfcdc2212/26/2024ompletedNot AvailableNot AvailableNot AvailableBD Leanna 2nd Gen Pen Needle 32 gauge x 5/32PLEASE SEE ATTACHED FOR DETAILED DIRECTIONSactiveNot AvailableNot AvailableNot AvailableBreztri Aerosphere 160 mcg-9mcg-4.8mcg/actuation HFA aerosol inhalerINHALE 2 PUFFS INTO THE LUNGS TWICE A DAY04/06/20254052ioeldbvub8169-51-27 HN: Patient reports no longer takingNot AvailableNot AvailableNot AvailableTrelegy Ellipta 200 mcg-62.5 mcg-25 mcg powder for inhalationTAKE 1 PUFF BY MOUTH EVERY DAYactiveNot AvailableNot AvailableNot AvailableDexcom G7 Sensor deviceTO BE USED TO READ BLOOD SUGARS, FOLLOW OPERATIONS ACCOUNTANT DIRECTIONS.activeNot AvailableNot AvailableNot Available Dexcom G7 SensorInsert sensor in upper back of arm Continuous blood glucose readings/change sensor every 10 days12/26/2024ompletedNot AvailableNot AvailableNot Available Vitals Date Recorded Body weight Provider Name an d Address Organization Details Last Updated DateTime 12/26/2024 02701.48 g Claire Rich [facility] 0 12/26/2024 15:42:39 Date Recorded Body height Body mass index (BMI) Provider Name and Address Organization Details Last Updated DateTime 12/26/2024 170.18 cm 27.1 kg/m2 Not Available Health Note 15:34:50 Date Recorded Body height Provider Name an d Address Organization Details Last Updated DateTime 01/06/2025 170.18 cm Dorene Ayala [facility] 01/06/2025 14:40:01 Date Recorded Body height Provider Name an d Address Organization Details Last Updated DateTime 03/24/2025 170.18 cm Zulma Gomes [facility] 09:17:14 Date Recorded Body height Body mass index (BMI) Body weight Provider Name and Address Organization Details Last Updated DateTime 04/06/2025 170.18 cm 27.1 kg/m2 23688.48 g Lizbet Anderson [facility] 04/06/2025 10:41:29 Social History Question Answer Notes LastModified by Organization D etails LastModified Time Tobacco Smoking Status Current Some Day Smoker Not AvailableHealth Note12/22/2024 22:08:10Do You Have An Advance Directive?No [email or web address] not uxcfidpcy11/28/2025What Is Your Level Of Caffeine Consumption?ModerateAPI-685Information not ihcejxzpu84/28/2025How Much Tobacco Do You Chew?NoneAPI-685Information not drkiczkwq63/28/2025EthnicityNot /Frjmhvusjnw2Idriabbsscx not fpxzmjtag18/01/2025Preferred Language Gjarqlouaywc2Gxidgbdgfmi not iuvodxwez48/01/2025Number Of Szuanjrhpuw6PRY-700 Information not iyaxdkipq95/28/2025Number Of Vaginal Qqgkkkxapl5PVI-509 Information not eglbcoeoj03/28/2025Number Of Caesarean Hdepwkgb2CFU-853 Information not cbxbaismy64/28/2025Recreational Drug JlrLnoripk9Uknhzunftln not qdmmyqbpn84/01/2025ould You Be ?NoAPI-685Information not available 12/22/2024Do You Have A Medical Power Of Systems Planner?NoAPI-685Information not /28/2025What Was The Date Of Your Most Recent Tobacco Screening? 04/06/20254858hcausvz40Dxlgrvervxw not pygsqnqlo02/10/2025Have You Ever Been Counseled For Unhealthy Alcohol Use?Bpomxur7Tasqaikiscn not nstronsqt52/01/2025 What Is Your Relationship Status?MarriedAPI-685Information not available 12/22/2024re You Sexually Active?[email or web address] not jyimflimw52/28/2025 How Much Tobacco Do You Smoke?1 PPWAPI-685Information not elfbywsyq19/28/2025Has Tobacco Cessation Counseling Been Provided?Ieiwzfsm6Naykpdhyitn not available 12/26/2024On What Date Was Tobacco Cessation Counseling Provided?04/06/2025 ohnawlb32Indocdgmpjj not cuhnmixay76/10/2025How Many Years Have You Smoked Tobacco?15API-685Information not yogqamqrx68/28/2025How Many Days In The Past Year Have You Consumed 4 Or More Drinks?1API-685Information not available 12/22/2024 Sex: Unknown Functional Status Question Answer Note LastModified by Organization D etails LastModified Time Do you use any illicit or recreational drugs? No API-685Information not nsetxxejs65/28/2025Do you or have you ever used any other forms of tobacco or nicotine?Ingizos7Hduihowrpmi not igsocgcti52/01/2025What is your level of alcohol consumption?Ckrcgvgrsglhios9Djqczoqtceb not available 12/26/2024Do you or have you ever used smokeless tobacco?Never used smokeless tobaccoAPI-685Information not llajtpfoz14/28/2025re you currently employed?No pxksv6Sxwllliyfkq not jradeldcm21/01/2025Do you or have you ever used e- cigarettes or vape?Former user of electronic cigarettesAPI-685Information not fkhirantb10/28/2025 Mental Status None recorded. Family History Relationship Description Onset Age of this Age Resolved Age Notes LastModified by Organization Details LastModified Time Paternal Grandfather Family history of cardiac d isorder API-685Not ewoitcpls68/28/2025 22:08:08Paternal GrandmotherFamily history of neoplasm of ovaryAPI-685Not zxnsrolpi00/28/2025 22:08:08 Medical History Condition Response Sexually Transmitted Infection N Diabetes Y Bleeding Disorder N High Blood Pressure Y Kidney Stones N Cancer N Lung Disease N Depression Y High Cholesterol Y GERD/Acid Reflux Y Heart Disease N Gynecological History Statement/Question Response If Post Menopausal, Age at Menopause 53 Hormone Therapy N Sexually Active? N Obstetrics History GPAL:G 0 P 0 0 0 0 Immunizations Vaccine Type Date Status Note Provider Nam e and Address Organization Details Recorded Time influenza, unspecified formulation 05/28/2023 comple simone Not AvailableHealth Note12/22/2024 22:08:14zoster live5completedNot AvailableHealth Note12/22/2024 22:08:14pneumococcal, unspecified formulation 3completedNot AvailableHealth Note12/22/2024 22:08:14Influenza, split virus, quadrivalent, PF02/10/2020completedNot AwfhqspklIrimwkKomtqt82/10/2025 10:32:40influenza, unspecified ojatbhjsncl81/14/2017completedNot Available NgqurbYxftww05/02/2025 10:32:40Pneumococcal conjugate PCV 13002/08/2017completed Not PyfkauthuGtwvtoCxfwpt89/10/2025 10:32:21Pwnv4902/08/2017completedNot Available PqqstuGqewkj35/10/2025 10:32:40COVID-19 vaccine, vector-nr, rS-Ad26, PF, 0.5 mL 09/05/2020ompletedNot LbpecevzfWwejmsOksbef24/10/2025 10:32:40Influenza, split virus, quadrivalent, PF04/12/2021ompletedNot HcdojovsgNczsuiLwdchc22/10/2025 10:32:40COVID-19, mRNA, LNP-S, PF, 100 mcg/0.5mL dose or 50 mcg/0.25mL dose 05/27/2021ompletedNot VjtiblyopSkfgdcZxkede68/10/2025 10:32:40Influenza, split virus, quadrivalent, PF02/21/2022ompletedNot XgrnorrbaZsozibGpzypm97/10/2025 10:32:40COVID-19, mRNA, LNP-S, bivalent, PF, 50 mcg/0.5 mL or 25mcg/0.25 mL dose 05/25/2022ompletedNot XelsqvgjdJdapntCyeayn56/10/2025 10:32:40Influenza, split virus, trivalent, PF4completedNot DlqcpdttpSmepgaFemiky42/10/2025 10:32:40zoster eymsdjknkcq39/23/2024completedNot LaqeoejawKipajuKequyg72/10/2025 10:32:40zoster gvekthmtzre14/03/2024completedNot Available[facility] 04/06/2025 10:32:40 Past Encounters Encounter ID Performer Location Encounter Start Date Encounter Closed Date Diagnosis/Indication Diagnosis SNOMED-CT Code Diagnosis ICD10 Code Diagnosis IMO Codes Diagnosis Note [id number] ELIJAH CORRIGAN [address] [address] 12/26/2024 15:32:40 01/05/2025 18:35:45 Retention of urine 575812400 R33.9 50590 new, [id number] SCHMITZ[address] [address] 01/06/2025 14:34:02001/13/2025 20:24:12Retention of sxmfh457146456V57.9 91294 [id number] MULLINS [address] [address] 03/24/2025 09:10:30106/06/2024 18:26:21Retention of dbgfd861318515O13.9 01401 [id number] Lacy [place] [phone] 04/06/2025 10:29:56106/06/2024 16:30:12Retention of wmewz438899967B10.9 52546 chronic stableFrank zdvtxkouc039173327R99.0 352811 new --likely catheter trauma Health Concerns Section Related Observation LastModified by Organization Detai ls LastModified Time None Recorded Concern Status LastModified by Organization Details LastModified Time None Recorded Advance Directives Directive N: Payers Insurance Date Sequence Insurance Name Policy Number Policy Horner Covered Member ID Horner Member ID Guarantor Name 04/17/2025 1 [facility] [id number] Klaudia khan [id number] Klaudia Hall Notes Date Note Type Note Provider Name and Address Orga nization Details Recorded Time 12/26/2024 text/html Patient is seen today for urinary retention PMH: T1DM, gastroparesis, constipation, NSTEMI Patient is 54-year-old female with recent admission for abdominal pain. She was seen at [facility] with low blood pressure and directed to the ER. She was admitted to [facility]. There was possible obstruction at the pylorus as well as gastroparesis and underwent EGD. Urology was consulted while she is inpatient for elevated bladder scans. She was straight cathed for [address] on 12/14/2024 showed very large stool burden. Urology was consulted and they noted intermittent retention per the patientover the last 2 to 3 months. Lassiter catheter was placed while she was inpatient and was removed prior to discharge. Bladder scans after lassiter removal were anywhere from 400 cc to 77 cc. Patient states that her difficulty voiding started in July. She then had a heart attack in August. Occasionally she does not feel like she empties completely. She states she has a hard time starting the urinary stream and the urinary stream can be intermittent. Sometimes has to bend over to initiate stream. She states sometimes she goes long times between voids other times she is dealing with frequency of urination. No nocturia or urinary incontinence. Bowels are much improved following her hospitalization. Difficulty voiding started prior to her constipation. No prior episodes of urinary retention. No dysuria. No hematuria. 2 children, delivered vaginally - big kidsAbdominal surgeries: cholecystectomy, tubal ligationNeuropathy from diabetesCurrent smoker Imaging:CT w/ 12/17/24: Kidneys: No urolithiasis, hydronephrosis or suspicious lesion.GI tract: Near diffuse fecal loading of the colon. Borderline and mildly dilated fluid-filled smallbowel in the left abdomen. No high-grade bowel obstruction. Normal appendix. No free air or free fluid. Urine testin12/17/24: UC no growth09/08/24: UC no growth Cr 1.06A1C: 7-8 Urogenital Distress Inventory (ISABELLE-6): 7Incontinence Impact Questionnaire (IIQ- 7): 0ELIJAH CORRIGAN [address] [place] [address],[address], [place], [address], [facility] Lcgpoyv6012/26/2024 17:06:25106/06/2024text/html 9-5-95Vutrwue is seen today for urinary retention PMH: T1DM, gastroparesis, constipation, NSTEMI Patient is 54-year-old female with recent admission for abdominal pain. She was seen at [facility] with low blood pressure and directed to the ER. She was admitted to [facility]. There was possible obstruction at the pylorus as well as gastroparesis and underwent EGD. Urology was consulted while she is inpatient for elevated bladder scans. She was straight cathed for [address] on 12/14/2024 showed very large stool burden. Urology was consulted and they noted intermittent retention per the patientover the last 2 to 3 months. Lassiter catheter was placed while she was inpatient and was removed prior to discharge. Bladder scans after lassiter removal were anywhere from 400 cc to 77 cc. Patient states that her difficulty voiding started in July. She then had a heart attack in August. Occasionally she does not feel like she empties completely. She states she has a hard time starting the urinary stream and the urinary stream can be intermittent. Sometimes has to bend over to initiate stream. She states sometimes she goes long times between voids other times she is dealing with frequency of urination. No nocturia or urinary incontinence. Bowels are much improved following her hospitalization. Difficulty voiding started prior to her constipation. No prior episodes of urinary retention. No dysuria. No hematuria. 2 children, delivered vaginally - big kidsAbdominal surgeries: cholecystectomy, tubal ligationNeuropathy from diabetesCurrent smoker Imaging:CT w12/17/24: Kidneys: No urolithiasis, hydronephrosis or suspicious lesion.GI tract: Near diffuse fecal loading of the colon. Borderline and mildly dilated fluid-filled smallbowel in the left abdomen. No high-grade bowel obstruction. Normal appendix. No free air or free fluid. Urine testin12/17/24: UC no growth09/08/24: UC no growth Cr 1.06A1C: 7-8 Urogenital Distress Inventory (ISABELLE-6): 7Incontinence Impact Questionnaire (IIQ- 7): 0 04-06-25 had TCAR--stent in her neck in difficulty to emptyhad a lassiter placed --thinks that this screwed her up again ---has had more difficulty in emptying, hasnt cathed in a while however. states that when she cathed however, she had full of bloodhas to wait and sit there to posture to voidbowels daily. seen with [facility] UDS:complaint bladderlarge PVRatonic detrusor+ vianey x 1.no DOEMG coordinated. Overactive Bladder Pathway Questionnaire:Uses the restroom:3times per day Uses the restroom (daytime): acqmx5hwpuv Uses the restroom (nighttime): npmky6ncrrw Accidents:0per day Pads: xsfbg3mtw day Happy with current treatment plan:no Urogenital Distress Inventory (ISABELLE-6):[3] Frequent urination:Greatly[0] Urine leakage related to the feeling of urgency:Not at All[0] Urine leakage related to physical activity, coughing or sneezing:Not at All[0] Small amounts of urine leakage (drops):Not at All[3] Difficulty emptying your bladder:Greatly[0] Pain or discomfort in the lower abdominal or genital area:Not at All Incontinence Impact Questionnaire (IIQ-7):[0] Ability to do business process coordinator (cooking, housecleaning):Not at All[0] Physical recreation such as walking, or other exercise:Not at All[0] Ability to attend entertainment activities (movie, concerts):Not at All[0] Ability to travel by car more than 30 minutes from home: Not at All[0] Participation in social activities outside your home:Not at All[0] Emotional health (nervousness, depression, etc):Not at All[0] [place] frustrated: Not at All Continence Function Questionnaire:[1] Urinary control:Total control[1] Leaked urine:Never[5] How big of a problem urinary function has been:Big problemVera Lacy MD [address] [facility],[address], [address], [facility] Dybcqrm91/10/2025 11:22:26 OBGyn Episode No OBEpisode recorded.
--- OUTSIDE RECORDS SUMMARY | 2025-05-22 16:12 | XMS_ITS | Encounter Summary ---
Author Organization [place] Address [address] [place] [address] Care Team Providers Care Mobile Game Engineer Name Role Phone Clay Hoyt MD Primary Care Provider [phone] Xavier Saldivar MD Unavailable Xavier Saldivar MD Unavailable Erica Nieto RD Unavailable [phone] Siobhan Rodrigez MD Unavailable [phone] EloHu MD Unavailable [phone] Comfort Cook PhD LP Unavailable [phone] Lukas Mosher MD Unavailable [phone] Xavier Marte MD Unavailable [phone] uH Gasca MD Unavailable [phone] Larry Rosas PhD Unavailable [phone] Krystal Rico [facility] Unavailable [phone] Krystal Rico [facility] Unavailable [phone] Encounter Details DateTypeDepartmentCare Team (Latest Contact Info)Nqxcsajymlk11/05/2025 Documentation Only [facility] [address] [place] [address] Ginette Peters Social History Tobacco UseTypesPacks/DayYears UsedDateSmoking Tobacco: Every DayCigarettesPipe Started: 3Passive Smoke Exposure: CurrentSmokeless Tobacco: Never Alcohol UseStandard Drinks/WeekCommentsYes0 (1 standard drink = 0.6 oz pure alcohol)RARELYPHQ-2AnswerDate RecordedPHQ-2 Oxrvh066/11/2025Adolescent Education AnswerDate RecordedGetting School Help NeededNot on file3 CommentsNoSex and Gender InformationValueDate RecordedSex Assigned at Ohgcoj8912/27/2020 8:35 AM CDTLegal TrrFuucmv62/26/2021 11:46 AM CDTGender HudxdewjQqtkgq21/02/2021 8:35 AM CDTSexual SwvvwlboihiAkwfqlrx10/02/2021 8:35 AM CDTdocumented as of this encounter Progress Notes * Ginette Peters - 01/30/2025 9:28 AM CDT 04/27/25: Sample received, orders placed and added to submission. RH 04/13/25 Got message from [employer] about patient wanting us to recheck benefits since she called with insuranceand her ded and oop should be met for the year. I confirmed that is the case and test should be covered since the PA was approved. Waiting for response on how to proceed. KM 04/01/25: spoke with patient over the phone to see if she had been able to contact insurance about her ded and OOP. She had not but still plans to contact them because she did not want to proceed withtesting with current eOOP $775. She requested we call back next week. RH 03/16/25 Spoke with patient via phone call. Pt stated that she wanted to follow up with insurance because she believed her ded and OOP were met. She's having surgery soon and requested a call back in about 2 weeks. KM 02/25/2025: First contact attempt via [employer]. EO 02/02/2025: verified she does not want PMP2 and DRP2. Sample will be run on the capture. 01/30/2025: PA info sent. Pending response from GC if she wants to include PMP2 and DRP2. If she wants to include those, test will need to be run on genome backbone. If not, sample will run on capture.PA included those two genes. RH BBING MACHINE OPERATOR BBING MACHINE OPERATOR BBING MACHINE OPERATOR documented in this encounter Plan of Treatment DateTypeDepartmentCare Team (Latest Contact Info)Iehglybzljl25/31/2025 2:00 PM CSTAncillary Procedure [facility] Xray [address] [place] [phone] Yarelis Leavitt, PA-C [facility] [address] [place], [place] [id number] 07/21/2025 10:15 AM CSTOffice Visit [facility] [place] [id number] [place] [address] Drive [address] [place], [place] [id number] [place] [address] [place] [address] 09/24/2025 3:30 PM CDTOffice Visit [facility] [address] 3rd [place] [phone] Xavier Saldivar MD [address] [place] [address] [id number] [place], [place] [id number] documented as of this encounter Visit Diagnoses Not on filedocumented in this encounter Additional Health Concerns AssessmentNoted TimePHQ-9 Depression Total Score: 14107/02/2023 12:24 PM SCRUBBING MACHINE OPERATOR documented as of this encounter Care Teams Team MemberRelationshipSpecialtyStart DateEnd Date Clay Hoyt MD PCP - [facility] Medicine10/22/20 Xavier Saldivar MD [address] [place], [place] [id number] [address] Neurology10/22/20 Xavier Saldivar MD [address] [place], [place] [address] [address] Assigned Neuroscience Provider01/02/[address] [place] [address] Registered DietitianDietitian, Fxmodkdhhz14/23/21 [place] [address] [place] [address] Assigned Pain Medication Provider12/02/22 Hu Gasca MD [address] [place] [address] 276 [place] [address] MDCritical Care08/02/23 Comfort Cook, PhD LP [address] [place] [address] PsychologistNeuropsychology08/17/23 Lukas Mosher MD [address] [place] [address] [address] [place], [place] [address] Neurology08/17/23 Xavier Marte MD [address] [place] [address] [id number] Assigned Heart and Vascular Provider12/18/23 Hu Gasca MD [address] [facility] [address] [place] [address] Assigned Pulmonology Yutasphe67/23/24 Larry Rosas, PhD LP [address] [place] [address] Assigned Behavioral Health Qkmnuryl26/23/24 Krystal Rico, [facility] [address] [place] [address] PharmacistPharmacist09/25/24 Krystal Rico [facility] [address] [place] [address] Assigned MTM Pharmacist10/17/24documented as of this encounter
--- OUTSIDE RECORDS SUMMARY | 2025-05-22 16:12 | XMS_ITS | Encounter Summary ---
Author Organization [place] Address [address] [place] [address]. [place] [address] Care Team Providers Care Scroll Machine Operator Name Role Phone Clay Hoyt MD Primary Care Provider Xavier Saldivar MD Unavailable Xavier Saldivar MD Unavailable Erica Nieto RD Unavailable [phone] Siobhan Rodrigez MD Unavailable [phone] EloHu ricks MD Unavailable [phone] Comfort Cook PhD LP Unavailable [phone] Lukas Mosher MD Unavailable [phone] Xavier Marte MD Unavailable [phone] Hu Gasca MD Unavailable [phone] Larry Rosas PhD Unavailable [phone] Krystal Rico [facility] Unavailable [phone] Krystal Rico [facility] Unavailable [phone] Encounter Details DateTypeDepartmentCare Team (Latest Contact Info)Wzoeedyqlld16/14/2025[facility] [address] [place] [address] [address] [place] [address] Chelsey Singletary, GC Social History Tobacco UseTypesPacks/DayYears UsedDateSmoking Tobacco: Every DayCigarettes0.5 48.6Started: 10/26/2006PipeStarted: 3Passive Smoke Exposure: Current Smokeless Tobacco: NeverAlcohol UseStandard Drinks/WeekCommentsNot Currently0 (1 standard drink = 0.6 oz pure alcohol)RARELYPHQ-2AnswerDate RecordedPHQ-2 Score4 5Adolescent EducationAnswerDate RecordedGetting School Help NeededNot on file3CommentsNoSex and Gender InformationValueDate Recorded Sex Assigned at VqbguJerxlr61/02/2021 8:35 AM CDTLegal SgfCepgtg78/26/2021 11:46 AM CDTGender YtnffrvsQqhqxb14/02/2021 8:35 AM CDTSexual OrientationStraight 12/27/2020 8:35 AM CDTdocumented as of this encounter Miscellaneous Notes * Telephone Encounter - Chelsey Singletary GC - 04/10/2025 3:02 PM CST Today, I received a call from Klaudia and a customer experience specialist from [facility], Karma, to discussKlaudia's expected out of pocket cost for testing. Since our original request for genetic testing approval, Klaudia has had multiple procedures done for other medical reasons. Her maximum out of pocket cost and deductible have both been met, per Karma. Karma confirmed that she sees the prior authorization approval on file for the dates listed by our lab billing team. She confirmed that Dr. Saldivar (ordering provider of testing) is in-network. I let Klaudia know that I would update our lab billing team, and that she should plan to have a blood draw done for this testing at her convenience if she'd like to proceed. Chelsey Singletary MS, [facility] Genetic Counselor - [facility] Email: [email or web address] FEEDER documented in this encounter Plan of Treatment DateTypeDepartmentCare Team (Latest Contact Info)Atbvjdxqkfx88/31/2025 2:00 PM CSTAncillary Procedure M [address] [place] [phone] Yarelis Leavitt, [facility] [place] [facility] PA [address] [facility] [place] [address] 07/21/2025 10:15 AM CSTOffice Visit M [facility] [place] [address] [place] [address] [place], [place] [address] [place] [address] [place] [address] 09/24/2025 3:30 PM CDTOffice Visit M [facility] [address] [place] [phone] Xavier Saldivar MD [address] [place] [address] documented as of this encounter Visit Diagnoses Not on filedocumented in this encounter Additional Health Concerns AssessmentNoted TimePHQ-9 Depression Total Score: 11:21 AM NAIL FEEDER documented as of this encounter Care Teams Team MemberRelationshipSpecialtyStart DateEnd Date Clay Hoyt MD PCP - GeneralSports Medicine10/22/20 Xavier Saldivar MD [address] [place] [address] Neurology10/22/20 Xavier Saldivar MD [address] [place] [address] Assigned Neuroscience Provider01/02/[address] [place] [address] Registered DietitianDietitian, Qgwrbqzrek31/23/21 [place] [address] [place] [address] Assigned Pain Medication Provider12/02/22 Hu Gasca MD [address] [place] [address] MDCritical Care08/02/23 Comfort Cook, PhD LP [address] [place] [address] PsychologistNeuropsychology08/17/23 Lukas Mosher MD [address] [place] [address] MDNeurology08/17/23 Xavier Marte MD [address] [place] [address]15635 Assigned Heart and Vascular Provider12/18/23 Hu Gasca MD [address] [place] [address] Assigned Pulmonology Lsgjqxem82/23/24 Larry Rosas, PhD LP [address] [place] [address]475 Assigned Behavioral Health Jiigzekd15/23/24 Krystal Rico, [facility] [address] [place] [address] PharmacistPharmacist09/25/24 Krystal Rico, [facility] [address] [place] [address] Assigned MTSoo Pharmacist10/17/24documented as of this encounter
--- OUTSIDE RECORDS SUMMARY | 2025-05-22 16:12 | XMS_ITS | Encounter Summary ---
Author Organization [place] Address [facility] [place] [address] Care Team Providers Care Administrative Law Judge Name Role Phone Clay Hoyt MD Primary Care Provider [phone] Xavier Saldivar MD Unavailable Xavier Saldivar MD Unavailable Erica Nieto RD Unavailable [phone] Siobhan Rodrigez MD Unavailable [phone] EloHu ricks MD Unavailable +[phone] Comfort Cook PhD LP Unavailable +[phone] Lukas Mosher MD Unavailable +[phone] Xavier Marte MD Unavailable [phone] Hu Gasca MD Unavailable +[phone] Larry Rosas PhD Unavailable [phone] Krystal Rico [facility] Unavailable [phone] Krystal Rico [facility] Unavailable Reason for Visit * ReasonOnset DateCommentsCall Back04/29/2025Reschedule Encounter Details DateTypeDepartmentCare Team (Latest Contact Info)Hrvbmrsdfqz73/03/2025Tehalle Palomo [facility] [address] [facility] [address] [place] [address] [place] [address] [place] [address] Call Back (Reschedule ) Social History Tobacco UseTypesPacks/DayYears UsedDateSmoking Tobacco: Every DayCigarettes0.5 48.6Started: 10/26/2006PipeStarted: 3Passive Smoke Exposure: Current Smokeless Tobacco: NeverAlcohol UseStandard Drinks/WeekCommentsNot Currently0 (1 standard drink = 0.6 oz pure alcohol)RARELYPHQ-2AnswerDate RecordedPHQ-2 Score1 5Adolescent EducationAnswerDate RecordedGetting School Help NeededNot on file3CommentsNoSex and Gender InformationValueDate Recorded Sex Assigned at IrmxqZeczud76/02/2021 8:35 AM CDTLegal PkfSvihdw73/26/2021 11:46 AM CDTGender BrnpmkzkMhncvt29/02/2021 8:35 AM CDTSexual OrientationStraight 12/27/2020 8:35 AM CDTdocumented as of this encounter Miscellaneous Notes * Telephone Encounter - Maryam Wolff RN - 04/30/2025 7:53 AM CST Patient rescheduled to 07/21/25 at 10:[address] Rodrigez. Called patient to inform of above details. Patient states understanding. Maryam VELAZQUEZ, RN Patient Bottom Hoop Driver [facility] KER POLISHING * Telephone Encounter - Tanya Earl - 04/29/2025 11:10 AM CST [facility] Phone Message May a detailed message be left on voicemail: yes Reason for Call: Other: Patient called in to reschedule her appt on 06/[address] Rodrigez. Patient stated she didn't realize she was on vacation. Pt is able to schedule after 07/08. Lens Blocker attempted to help, but no solutions showed as patient has an extended appt that was booked by Dr Rodrigez. Please call to help reschedule. Action Taken: Message routed to: Other: Pain Travel Screening: Not Applicable Date of Service: KER POLISHING documented in this encounter Plan of Treatment DateTypeDepartmentCare Team (Latest Contact Info)Anhxjfhpmvd70/31/2025 2:00 PM CSTAncillary Procedure [facility] Xray [place] [address] [place] [address] 1st [place] [phone] Yarelis Leavitt, PA-C [place] [facility] [place] [address] [place] [address] 07/21/2025 10:15 AM CSTOffice Visit [facility] [place] [address] [place] [address] Drive [address] [place], [place] [address] [place] [address] [place] [address] 09/24/2025 3:30 PM CDTOffice Visit [facility] [address] 3rd [place] [phone] Xavier Saldivar MD [address] [place] [address] 289525 documented as of this encounter Visit Diagnoses Not on filedocumented in this encounter Additional Health Concerns AssessmentNoted TimePHQ-9 Depression Total Score: 11:21 AM BLOCKER POLISHING documented as of this encounter Care Teams Team MemberRelationshipSpecialtyStart DateEnd Date Clay Hoyt MD PCP - [facility] Medicine10/22/20 Xavier Saldivar MD [address] [place] [address] 427605 Neurology10/22/20 Xavier Saldivar MD 9 [facility] [place], [place] [address]87[address] Assigned Neuroscience Provider01/02/[address] [place] [address] 861165 Registered DietitianDietitian, Wrzmwfqegf29/23/21 [place] [address] [place], [place] [address] Assigned Pain Medication Provider12/02/22 Hu Gasca MD [address] [place] [address] 015445 MDCritical Care08/02/23 Comfort Cook, PhD LP [address] [place] [address] 630185 PsychologistNeuropsychology08/17/23 Lukas Mosher MD [address] [place] [address] 486 [place], [place] [address]995 Lyndsayurology08/17/23 Xavier Marte MD [address] [place] [address] 570715 Assigned Heart and Vascular Provider12/18/23 Hu Gasca MD [address] [place] [address] Assigned Pulmonology Xzeiozix59/23/24 Larry Rosas PhD LP [address] [place], [place] 7[address]35 Assigned Behavioral Health Zdzclthd57/23/24 Krystal Rico, [facility] [address] [place], [place] 78[address] PharmacistPharmacist09/25/24 Krystal Rico, [facility] [address] [place] [address] Assigned MTM Pharmacist10/17/24documented as of this encounter
--- OUTSIDE RECORDS SUMMARY | 2025-05-22 16:12 | XMS_ITS | Encounter Summary ---
Author Organization [place] Address [address] [place] [address] Care Team Providers Care Ct Scan Special Procedures Technologist Name Role Phone Clay Hoyt MD Primary Care Provider [phone] Xavier Saldivar MD Unavailable Xavier Saldivra MD Unavailable Erica Nieto RD Unavailable [phone] Siobhan Rodrigez MD Unavailable [phone] EloHu ricks MD Unavailable [phone] Comfort Cook PhD Unavailable +[phone] Lukas Mosher MD Unavailable [phone] Xavier Marte MD Unavailable [phone] Hu Gasca MD Unavailable [phone] Larry Rosas PhD Unavailable [phone] Krystal Rico [facility] Unavailable [phone] Krystal Rico [facility] Unavailable [phone] Encounter Details DateTypeDepartmentCare Team (Latest Contact Info)Xmovhbzjzpc27/21/2025Travel Social History Tobacco UseTypesPacks/DayYears UsedDateSmoking Tobacco: Every DayCigarettes0.5 48.6Started: 10/26/2006PipeStarted: 3Passive Smoke Exposure: Current Smokeless Tobacco: NeverAlcohol UseStandard Drinks/WeekCommentsNot Currently0 (1 standard drink = 0.6 oz pure alcohol)RARELYPHQ-2AnswerDate RecordedPHQ-2 Score4 5Adolescent EducationAnswerDate RecordedGetting School Help NeededNot on file3CommentsNoSex and Gender InformationValueDate Recorded Sex Assigned at ZzmsoNdseip87/02/2021 8:35 AM CDTLegal QkvJasgjk56/26/2021 11:46 AM CDTGender JbfqwsiaTflgnr39/02/2021 8:35 AM CDTSexual OrientationStraight 12/27/2020 8:35 AM CDTdocumented as of this encounter Plan of Treatment DateTypeDepartmentCare Team (Latest Contact Info)Ibhbhfcebfr78/31/2025 2:00 PM CSTAncillary Procedure [facility] Xray [address] 1[address] [place] [phone] Yarelis Leavitt, PA-C [facility] [address] [place] [id number] 07/21/2025 10:15 AM CSTOffice Visit [facility] [place] [address] [place] [address] Drive [address] [place], [place] [address] [place] [address] [place] [address] 09/24/2025 3:30 PM CDTOffice Visit [facility] Neurology Clinic [address] 3rd [place] [phone] Xavier Saldivar MD [address] [place] [address] [place], [place] [address] documented as of this encounter Visit Diagnoses Not on filedocumented in this encounter Additional Health Concerns AssessmentNoted TimePHQ-9 Depression Total Score: 11:21 AM SUPERVISOR UNLOADING documented as of this encounter Care Teams Team MemberRelationshipSpecialtyStart DateEnd Date Clay Hoyt MD [facility] - [facility] Medicine10/22/20 Xavier Saldivar MD [address] [place], [place] [address] [address] Neurology10/22/20 Xavier Saldivar MD [address] [place], [place] [address] [address] Assigned Neuroscience Provider01/02/[address] [place] [address] 320915 Registered DietitianDietitian, Lvlnszmrca75/23/21 [place] [address] [place] [address] Assigned Pain Medication Provider12/02/22 Hu Gasca MD [address] [place] [address] 276 [place], [place] 7[address]45 MDCritical Care08/02/23 Comfort Cook, PhD LP [address] [place] [address] PsychologistNeuropsychology08/17/23 Lukas Mosher MD [address] [place] [address] 486 [place], [place] 237475 Neurology08/17/23 Xavier Marte MD [address] [place] [address] Assigned Heart and Vascular Provider12/18/23 Hu Gasca MD [address] [facility] [address] [place] [address] Assigned Pulmonology Ksvdzzaz12/23/24 Larry Rosas, PhD LP 6 [place], [place] 026745 Assigned Behavioral Health Dnfdaqun04/23/24 Krystal Rico [facility] 3033 [place] [address] PharmacistPharmacist09/25/24 Krystal Rico [facility] [address] [place] [address] Assigned MTM Pharmacist10/17/24documented as of this encounter
--- OUTSIDE RECORDS SUMMARY | 2025-05-22 16:12 | XMS_ITS | Encounter Summary ---
Author Organization [place] Address [address] [place] [address] Care Team Providers Care Sand Cutting Machine Operator Name Role Phone Clay Hoyt MD Primary Care Provider [phone] Xavier Saldivar MD Unavailable Xavier Saldivar MD Unavailable Erica iNeto RD Unavailable [phone] Siobhan Rodrigez MD Unavailable [phone] EloHu rikcs MD Unavailable [phone] Comfort Cook PhD Unavailable [phone] Lukas Mosher MD Unavailable [phone] Xavier Marte MD Unavailable [phone] Hu Gasca MD Unavailable [phone] Larry Rosas PhD Unavailable [phone] Krystal Rico [facility] Unavailable [phone] Krystal Rico [facility] Unavailable [phone] Encounter Details DateTypeDepartmentCare Team (Latest Contact Info)Ivdfwavzoqh07/13/2025Travel Social History Tobacco UseTypesPacks/DayYears UsedDateSmoking Tobacco: Every DayCigarettes0.5 48.6Started: 10/26/2006PipeStarted: 3Passive Smoke Exposure: Current Smokeless Tobacco: NeverAlcohol UseStandard Drinks/WeekCommentsNot Currently0 (1 standard drink = 0.6 oz pure alcohol)RARELYPHQ-2AnswerDate RecordedPHQ-2 Score4 5Adolescent EducationAnswerDate RecordedGetting School Help NeededNot on file3CommentsNoSex and Gender InformationValueDate Recorded Sex Assigned at SkljuFjienx90/02/2021 8:35 AM CDTLegal XwhQvlilo95/26/2021 11:46 AM CDTGender OlhntipcGxljbq37/02/2021 8:35 AM CDTSexual OrientationStraight 12/27/2020 8:35 AM CDTdocumented as of this encounter Plan of Treatment DateTypeDepartmentCare Team (Latest Contact Info)Hxbrqyuufki12/31/2025 2:00 PM CSTAncillary Procedure [facility] Xray [address]st [place] [phone] Yarelis Leavitt, PA-C [facility] [address] [place] [id number] 07/21/2025 10:15 AM CSTOffice Visit [facility] [place] [address] [place] [address] Drive [address] [place], [place] [address] [place] [address] [place] [address] 09/24/2025 3:30 PM CDTOffice Visit [facility] [address] 3rd [place] [phone] Xavier Saldivar MD [address] [place] [address] [id number] [place], [place] 151115 documented as of this encounter Visit Diagnoses Not on filedocumented in this encounter Additional Health Concerns AssessmentNoted TimePHQ-9 Depression Total Score: 11:21 AM BRAND MARKETING MANAGER documented as of this encounter Care Teams Team MemberRelationshipSpecialtyStart DateEnd Date Clay Hoyt MD PCP - [facility] Medicine10/22/20 Xavier Saldivar MD [address] [place], [place] [address] [address] Neurology10/22/20 Xavier Saldivar MD [address] [place], [place] [address] [address] Assigned Neuroscience Provider01/02/[address] [place] [address] 035875 Registered DietitianDietitian, Mrzzvjgzni46/23/21 [place] [address] [place] [address] Assigned Pain Medication Provider12/02/22 Hu Gasca MD [address] [place] [address] 276 [place], [place] 189815 MDCritical Care08/02/23 Comfort Cook, PhD LP [address] [place] [address] PsychologistNeuropsychology08/17/23 Lukas Mosher MD [address] [place] [address] 486 [place], [place] 8[address]285 Neurology08/17/23 Xavier Marte MD [address] [place] [address] Assigned Heart and Vascular Provider12/18/23 Hu Gasca MD [address] [facility] 276 [place] [address] Assigned Pulmonology Olzhuhtn77/23/24 Larry Rosas, PhD LP 6 [place], [place] 7[address] Assigned Behavioral Health Okjvcklc56/23/24 Krystal Rico [facility] 3033 [place] [address] PharmacistPharmacist09/25/24 Krystal Rico [facility] [address] [place] [address] Assigned MTM Pharmacist10/17/24documented as of this encounter
--- OUTSIDE RECORDS SUMMARY | 2025-05-22 16:12 | XMS_ITS | Encounter Summary ---
Author Organization [place] Address [address] [place] [address] Care Team Providers Care Associate Professor Of Biology Name Role Phone Clay Hoyt MD Primary Care Provider [phone] Xavier Saldivar MD Unavailable Xavier Saldivar MD Unavailable Erica Nieto RD Unavailable [phone] Siobhan Rodrigez MD Unavailable [phone] EloHu ricks MD Unavailable [phone] Comfort Cook PhD Unavailable [phone] Lukas Mosher MD Unavailable +[phone] Xavier Marte MD Unavailable [phone] Hu Gasca MD Unavailable +[phone] Larry Rosas PhD Unavailable [phone] Krystal Rico [facility] Unavailable +[phone] Krystal Rico [facility] Unavailable [phone] Encounter Details DateTypeDepartmentCare Team (Latest Contact Info)Fqbtkybscxv74/11/2025Travel Social History Tobacco UseTypesPacks/DayYears UsedDateSmoking Tobacco: Every DayCigarettes0.5 48.6Started: 10/26/2006PipeStarted: 3Passive Smoke Exposure: Current Smokeless Tobacco: NeverAlcohol UseStandard Drinks/WeekCommentsNot Currently0 (1 standard drink = 0.6 oz pure alcohol)RARELYPHQ-2AnswerDate RecordedPHQ-2 Score4 5Adolescent EducationAnswerDate RecordedGetting School Help NeededNot on file3CommentsNoSex and Gender InformationValueDate Recorded Sex Assigned at YaymdSmipbt08/02/2021 8:35 AM CDTLegal GxyOeyarn23/26/2021 11:46 AM CDTGender XrkeatwrQrcysi18/02/2021 8:35 AM CDTSexual OrientationStraight 12/27/2020 8:35 AM CDTdocumented as of this encounter Plan of Treatment DateTypeDepartmentCare Team (Latest Contact Info)Prgdaqkogpy53/31/2025 2:00 PM CSTAncillary Procedure [facility] Xray [address]st [place] [phone] Yarelis Leavitt, PA-C [facility] [address] [facility] [address] [place] [id number] 07/21/2025 10:15 AM CSTOffice Visit [facility] [place] [address] [place] [address] Drive [address] [place], [place] [address] [place] [address] [place] [address] 09/24/2025 3:30 PM CDTOffice Visit [facility] Clinic [address] 3rd [place] [phone] Xavier Saldivar MD [address] [place] [address] [id number] [place], [place] 2[address]95 documented as of this encounter Visit Diagnoses Not on filedocumented in this encounter Additional Health Concerns AssessmentNoted TimePHQ-9 Depression Total Score: 11:21 AM CIVIL ENGINEERING DRAFTSPERSON documented as of this encounter Care Teams Team MemberRelationshipSpecialtyStart DateEnd Date Clay Hoyt MD [facility]CP - [facility] Medicine10/22/20 Xavier Saldivar MD [address] [place], [place] [address] [address] Neurology10/22/20 Xavier Saldivar MD [address] [place], [place] [address] [address] Assigned Neuroscience Provider01/02/[address] [place] [address] 936665 Registered DietitianDietitian, Tngocrwcgl91/23/21 [place] [address] [place] [address] Assigned Pain Medication Provider12/02/22 Hu Gasca MD [address] [place] [address] 276 [place], [place] 998215 MDCritical Care08/02/23 Comfort Cook, PhD LP [address] [place] [address] PsychologistNeuropsychology08/17/23 Lukas Mosher MD [address] [place] [address] 486 [place], [place] 7[address]105 Neurology08/17/23 Xavier Marte MD [address] [place] [address] Assigned Heart and Vascular Provider12/18/23 Hu Gasca MD [address] [facility] 276 [place] [address] Assigned Pulmonology Chrjuhgm23/23/24 Larry Rosas, PhD LP 6 [place], [place] 786545 Assigned Behavioral Health Gathxqbi64/23/24 Krystal Rico [facility] 3033 [place] [address] PharmacistPharmacist09/25/24 Krystal Rico [facility] [address] [place] [address] Assigned MTM Pharmacist10/17/24documented as of this encounter
[2025-05-22] MEDS: ONDANSETRON 2 MG/ML inj 4 MG IVP (16:29)
[2025-05-22 16:39] LABS: Albumin* 4.2 g/dL (3.3-5.0); Chloride* 100 mmol/L (96-114)
[2025-05-22 16:40] LABS: Potassium* 4.3 mmol/L (3.6-5.1); Sodium* 133 mmol/L (135-149)
[2025-05-22 16:42] LABS: Blood Urea Nitrogen* 12 mg/dL (7-30); Creatinine* 0.8 mg/dL (0.5-1.5); Est. Creatinine Clearance* 78.18; Estimated Glomerular Filt Rate 88 ml/min
[2025-05-22 16:43] LABS: Alanine Aminotransferase* 32 U/L (4-35); Alkaline Phosphatase* 165 U/L (40-150); Anion Gap 5 mEq/L (7-15); Aspartate Amino Transferase* 38 U/L (12-35); Bilirubin Direct* 0.2 mg/dL (0.0-0.5); Bilirubin Total* 0.3 mg/dL (0.1-1.5); Calcium* 9.2 mg/dL (8.4-10.6); Carbon Dioxide* 28 mmol/L (20-32); Glucose* 171 mg/dL (60-115); Total Protein* 7.4 g/dL (6.0-8.3)
[2025-05-22 17:53] LABS: Hematocrit* 37.3 % (33.0-51.0); Hemoglobin* 11.9 gm/dL (12.0-16.0); Immature Granulocytes Abs Auto 0.01 K/uL (0.00-0.30); Immature Granulocytes Pct Auto 0.1 %; Lymphocytes Absolute Auto 3.03 K/uL (0.90-2.90); Mean Corpuscular HGB Conc 32 gm/dL (32-36); Mean Corpuscular Hemoglobin 29 pg (26-34); Mean Corpuscular Volume 92 fL (80-100); RDW Coefficient of Variation % 13.3 % (11.5-15.5); Red Blood Count* 4.06 m/uL (4.00-5.20); White Blood Count* 9.69 K/uL (4.50-11.00)
[2025-05-22 17:54] LABS: Slide Review Reflex No
== END 2025-05-22 18:37 | disposition home or self-care (01) ==
PROVIDERS: Emergency Provider Emergency Medicine Emergency Medical Services; PCP Family Medicine
DX: R10.13 Epigastric pain (principal)
CPT/HCPCS: 36415; 80048; 80076; 83690; 85025; 86140; 96361; 96374; 96375; 99284; J1885; J2405; J7030